=== PATIENT | female | born 2005 | race Caucasian/White ===

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

== ENCOUNTER 2024-09-10 20:38 | Emergency (ER) | payer OTHER, SELFPAY ==
--- OUTSIDE RECORDS SUMMARY | 2024-09-10 20:41 | XMS_ITS | Referral Summary ---
Author Organization [facility] Address [address] [place] [address] Care Team Providers Care Newspaper Editor Managing Name Role Phone Elsewhere, Pcp Primary Care Provider Unavailabl e Source Comments Patient records contain information from all sites at [facility]. For routine questions regarding patient records, call [phone] during business hours, M-F 8:00 AM - 5:00 PM Central Time. 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 topically daily. APPLY PEA-SIZE AMOUNT TO ENTIRE FACE/CHEST/BACK EVERY NIGHT. OK TO APPLY EVERY 3 DAYS, INCREASING FREQUENCY TOLERATED. OK TO APPLY AFTER Active albuterol 90 mcg/actuation inhaler Inhale 2-4 puffs every 6 (six) hours as needed for shortness of breath or wheezing. INHALE 2-4 PUFF(S) BY MOUTH WITH SPACER EVERY FOUR TO SIX HOURS NEEDED FOR COUGH/WHEEZING. Active clindamycin-benzo yl peroxide 1.2-2.5 % gel with pump Apply 1 Application topically daily as needed (acne). Active EPINEPHrine 0.3 mg/0.3 mL injection syringe Inject 0.3 mL intramuscularly as needed. Active cholecalciferol (VITAMIN D3) 125 mcg (5,000 Unit) capsule Take 125 mcg by mouth daily. 01/01/20 Active cyanocobalamin, vitamin B-12, (Vitamin B-12) 5,000 mcg tablet, sublingual Take 1 tablet by mouth daily. 01/08/20 Active omega 0-jup-mns-fish oil 300 mg (120 mg- 180mg)-1,000 mg capsule Take 1 capsule by mouth daily. 01/01/20 Active inulin (FIBER GUMMIES ORAL) Take 15 mg by mouth daily. 02/11/20 Active acetaminophen (TYLENOL) 500 mg tablet Take 2 tablets (1,000 mg total) by mouth every 6 (six) hours as needed for pain. 04/09/20 Active ibuprofen (ADVIL,MOTRIN) 200 mg tablet Take 2 tablets (400 mg total) by mouth every 6 (six) hours as needed for pain. 04/09/20 Active polyethylene glycol (MIRALAX) 17 gram powder packet Take 1 packet (17 g total) by mouth daily. Dissolve each 17 g dose in 240 mLs (8 ounces) of beverage. Titrate to keep stools soft, can increase to twice daily if needed 04/09/20 Active Additional Information Patient taking differently: 34 goral Daily, Dissolve each 17 g dose in 240 mLs (8 ounces) of beverage. Titrate to keep stools soft, can increase to twice daily if needed, Reported on 08/10/2023 ondansetron ODT (ZOFRAN-ODT) [address] ONE (1) TABLET BY MOUTH EVERY 6-8 HOURS NEEDED. 04/30/20 Active sulfacetamide sodium-sulfur 8-4 % suspension 1 Application daily. 07/07/20 Active Wellbutrin SR 200 mg 12 hr tablet Take 200 mg by mouth daily. Active levonorgestreL (MIRENA) 21 mcg/24 hours (8 yrs) 52 mg IUD 1 each by intrauterine route continuously. 04/02/20 Active sertraline (ZOLOFT) 100 mg tablet Take 100 mg by mouth daily. Active ALPRAZolam (NIRAVAM) 0.25 mg disintegrating tablet 02/25/20 24 Active inhalational spacing device (OptiChamber [facility]) spacer See Admin Instructions. Active omeprazole (PriLOSEC) [address] capsule Take 1 capsule (40 mg total) by mouth 2 (two) times a day before breakfast and dinner. 180 capsule 3 03/15/20 24 Active Active Problems Problem Noted Date Diagnosed Date Follow Up Examination Status Post Surgery 2022 Other Specified Health Status 03/06/2023 Overview (03/06/2023): Food Allergies Depressive Disorder 03/06/2023 Anxiety Generalized [...] mostly on the weekends and mostly vodka [facility] Utilities Answer Date Recorded In the past 12 months has [facility] electric, gas, oil, or water company threatened to shut off services in your home? No 03/13/2024 Humiliation, Afraid, Rape, and Kick questionnair e [...] do you attend [facility] or shinto services? Never 03/03/2023 Do you [...] to strenuous exercise (like a brisk walk)? Patient declined On average, how many minutes do you engage in exercise at this level? Patient declined 03/13/2024 Hunger Vital Sign Answer Date Recorded Within the past 12 months, y ou worried that your food would run out before you got the money to buy more. Patient declined Within the past 12 months, t he food you bought just didn't last and you didn't have money to get more. Patient declined 10/2024 PRAPARE - Transportation Answer Date Re corded In the past 12 months, has l ack of transportation kept you from medical appointments or from getting medications? Yes 03/02 In the past 12 months, has l ack of transportation kept you from meetings, work, or from getting things needed for daily living? Yes 03/13/2024 Nutrition Answer Date Recorded On average, how many serving s of fruits and vegetables do you eat per day (serving size is equal to 1 cup or approximately the size of a tennis ball)? 3-5 03/13/2024 Dental Answer Date Recorded Dental: Regular Dentist Yes 03/03/20 Employment Answer Date Recorded Employment status N/A 03/13/2024 Housing Stability Answer Date Recorded What is your living situation today? [facility] place to live 03/13/2024 Education Answer Date Recorded What is the highest level of school you have completed or the highest degree you have received? Some college, no degree 03/03/2023 Comments Unknown Sex and Gender Information Value Date Recorded Sex Assigned at Female 03/03/2023 12:07 AM CDT Legal Sex Female 12:06 PM CDT Gender Identity Female 03/03/2023 12:07 AM CDT Sexual Orientation Don't know 03/03/2023 12 :07 AM CDT Last Filed Vital Signs Vital Sign Reading Time Taken Comments Blood Pressure 105/71 03/15/2024 8:38 AM CDT Pulse 68 03/15/2024 8:38 AM CDT Temperature 36.4 ??C (97.5 ??F) 05/04/2023 1:46 PM CD T Respiratory Rate 16 05/04/2023 2:00 PM CDT Oxygen Saturation 100% 05/04/2023 2:00 PM CDT Inhaled Oxygen Concentration - - Weight 69.2 kg (152 lb 8.9 oz) 03/15/2024 8:38 A M CDT Height 161 cm (5' 3.39) 03/15/2024 8:38 AM CDT Body Mass Index 26.7 03/15/2024 8:38 AM CDT Plan of Treatment Not on file Medical Devices Implanted Type Area Yard Supervisor Cotton Gin Device Identifier Shelf Expiration Date Model / Serial / Lot Perminant Retainers Hardware e.g. pins/screws/fernanda s Mouth Intrauterine Device-04/02/2022 Implanted:04/02 (Quantity not on file) Intrauterine Device Uterus Description:Mirena IUD Gravel Switch Biodesi Rectopexy Mesh 7x20 - [id number] Implanted:Qty: 1 on 04/08/2023 by El Mccormick M.B., Ch.B., M.P.H. at [facility] Mesh or Patch Pelvis [facility] 07/01/2024 [id number] / / [id number] Procedures Procedure Name Priority Date/Time Associated Diagnosis Comments CBC WITH DIFFERENTIAL, B Routine 03/13/2023 3:41 PM CDT Prolapse Rectal COLONOSCOPY Routine 03/13/2023 8:12 AM CDT Prolapse Rectal from Last 3 Months or Most Recently Relevant to Health Maintenance Results * (ABNORMAL) CBC with Differential, Blood (03/13/2023 [...] PM CDT Jordon Geronimo M.D., M.S. LAB BLOOD ADD-ON Final Result [facility] [address] [place] [address], [facility] D[facility] [address] [place] [address] from Last 3 Months or Most Recently Relevant to Health Maintenance Insurance [facility] Advance Directives For more information, please contact: [phone] * Full Code (Latest Code Status on File) Date Activated Date Inactivated Comments 04/08/2023 8:25 PM 04/09/2023 12:20 PM Question Answer Comments Full Code: Discussed * Full Code Date Activated Date Inactivated Comments 04/08/2023 9:44 AM 04/08/2023 8:25 PM Question Answer Comments Full Code: Discussed Care Teams Newspaper Editor Managing Relationship Specialty Start Date End Date Elsewhere, Pcp PCP - General Internal Medicine 08/10/23
--- OUTSIDE RECORDS SUMMARY | 2024-09-10 20:41 | XMS_ITS | Data Portability ---
Author Organization [facility], [facility] Address [address] [place] [address] Care Team Providers Care Mixing Machine Feeder Name Role Phone OSIEL ISSA Primary Care Provider PENGELIAN Psychiatrist [phone] Assessment Encounter Date Assessment Date Assessment LastModified by Organization Details LastModified Time 09/29/2023 09/29/2023 Total time: 35 min. This includes time spent with patient, as well as time spent before and after the visit reviewing the chart, documenting the encounter and reviewing labs and x-rays. [email or web address] Not available 09/29/2023 14:02:25 Plan of Treatment Reminders Order Date Submit Date Provider Last Modified By Organization Details Last Modified Time Details Appointments None recorded. Lab lipid panel, serum 2022 023 [facility], [address], [address], [place], [address], 3 07:22:30 CBC w/ auto diff 2022 023 [facility], [address], [address], [place], [address], 3 07:22:31 ESR (erythrocyt e sedimentati on rate), blood 2022 023 EZEL [facility], [address], [address], [place], [address], 3 07:22:33 TSH, serum or plasma 2022 023 E[facility], [address], [address], [place], [address], 3 07:22:34 CMP, serum or plasma 2022 023 E[facility], [address], [address], [place], [address], 3 07:22:32 Referral None recorded. Procedures None recorded. Surgeries None recorded. Imaging None recorded. Medication Orders EpiPen 2-Thiago 0.3 mg/0.3 mL injection, auto-inject or 2022 [facility] [place] [id number] ([id number]), [address], [place], [place], [phone], 13:45:15 Patient TargetsNo targets recorded. Patient InstructionsNo instructions recorded. Reason for Referral None Reported. Results Created Date Observation Date Name Description Value Unit Range Abnormal Flag Note LastModifiedBy Organization Detail LastModifiedTime 09/29/2009/30/2023 LIPID PANEL cholesterol 149 mg/dL <200 Not Available [facility] - Main Lab (Blood Not Drawn At This Location) Visit [place] [place], [address], 09/30/2023 07:22:30 09/29/2009/30/2023 LIPID PANEL triglyceride s 67 mg/dL <150 Not Available [facility] - Main Lab (Blood Not Drawn At This Location) Visit [place] [place], [address], 09/30/2023 07:22:30 09/29/20 23 09/30/2023 LIPID PANEL HDL cholesterol 59 mg/dL >39 Not Available [facility] - Main Lab (Blood Not Drawn At This Location) Visit [place] [place], [address], 09/30/2023 07:22:30 09/29/20 23 09/30/2023 LIPID PANEL calc LDL chol 76 mg/dL <100 NOTE: CALCU LATED LDL IS BASED ON ROBERTO N-HOP KINS METHO D WHICH INCLU MANA ADJUS TABLE TRIGL YCERI DE:VL DL DEVIN STERO L RATIO . THIS FACTO R VARIE S BY MEASU RED TRIGL YCERI DE AND NON-H DL DEVIN STERO L MANGO NTRAT IONS WITH INCRE ASED CALCU LATED LDL SEEN IN HIGHE R TRIGL YCERI DE OR LOWER NON-H DL SPECI MENS. FOR MORE INFOR RIMA Goins, SEE INDIGO LERMA NT AT [email or web address]: [email or web address] Not Available [facility] (Blood Not Drawn At This Location) Visit [place], [address], 09/30/2023 07:22:30 09/29/20 23 09/30/2023 LIPID PANEL risk ratio LDL/HDL 1.29 ratio <3.22 Testi ng Perfo rmed At: [facility] [address] [place] [address] Labor atory Direc tor: Eulalio wright M.D. JIALARA Orozcoshay r [id number] [place] [id number] Not Available [facility] Lab (Blood Not Drawn At This Location) Visit [place] [place], [address], 09/30/2023 07:22:30 09/29/20 23 09/30/2023 CBC W/AUT O DIFF WITH PLATE LETS WBC 5.5 K/uL 3.5-11 .0 Not Available [facility] (Blood Not Drawn At This Location) Visit [place] [place], [address], 09/30/2023 07:22:31 09/29/20 23 09/30/2023 CBC W/AUT O DIFF WITH PLATE LETS RBC 4.52 M/uL 3.80-5 .40 Not Available [facility] (Blood Not Drawn At This Location) Visit [place] [place], [address], 09/30/2023 07:22:31 09/29/20 23 09/30/2023 CBC W/AUT O DIFF WITH PLATE LETS hemoglobin 14.1 g/dL 11.5-1 5.5 Not Available [facility] (Blood Not Drawn At This Location) Visit [place] [place], [address], 09/30/2023 07:22:31 09/29/20 23 09/30/2023 CBC W/AUT O DIFF WITH PLATE LETS hematocrit 41.1 % 34.0-4 5.0 Not Available [facility] (Blood Not Drawn At This Location) Visit [place] [place], [address], 09/30/2023 07:22:31 09/29/20 23 09/30/2023 CBC W/AUT O DIFF WITH PLATE LETS MCV 90.9 fL 80.0-9 9.0 Not Available [facility] (Blood Not Drawn At This Location) Visit [place] [place], [address], 09/30/2023 07:22:31 09/29/20 23 09/30/2023 CBC W/AUT O DIFF WITH PLATE LETS MCH 31.2 pg 25.0-3 3.0 Not Available [facility] (Blood Not Drawn At This Location) Visit [place] [place], [address], 09/30/2023 07:22:31 09/29/20 23 09/30/2023 CBC W/AUT O DIFF WITH PLATE LETS MCHC 34.3 g/dL 31.0-3 6.0 Not Available [facility] (Blood Not Drawn At This Location) Visit [place] [place], [address], 09/30/2023 07:22:31 09/29/20 23 09/30/2023 CBC W/AUT O DIFF WITH PLATE LETS RDW 11.6 % 11.5-1 5.0 Not Available [facility] Main Lab (Blood Not Drawn At This Location) Visit [facility] For Location [facility] [place], [address], 09/30/2023 07:22:31 09/29/20 23 09/30/2023 CBC W/AUT O DIFF WITH PLATE LETS neutrophils 57.0 % Not Available [facility] Main Lab (Blood Not Drawn At This Location) Visit [place] [place], [address], 09/30/2023 07:22:31 09/29/20 23 09/30/2023 CBC W/AUT O DIFF WITH PLATE LETS lymphocytes 29.3 % Not Available [facility] Main Lab (Blood Not Drawn At This Location) Visit [place] [place], [address], 09/30/2023 07:22:31 09/29/20 23 09/30/2023 CBC W/AUT O DIFF WITH PLATE LETS monocytes 5.5 % Not Available [facility] (Blood Not Drawn At This Location) Visit [place] [place], [address], 09/30/2023 07:22:31 09/29/20 23 09/30/2023 CBC W/AUT O DIFF WITH PLATE LETS eosinophils 7.3 % Not Available [facility] Main Lab (Blood Not Drawn At This Location) Visit [place] [place], [address], 09/30/2023 07:22:31 09/29/20 23 09/30/2023 CBC W/AUT O DIFF WITH PLATE LETS basophils 0.7 % Not Available [facility] Lab (Blood Not Drawn At This Location) Visit [facility] [place], [address], 09/30/2023 07:22:31 09/29/20 23 09/30/2023 CBC W/AUT O DIFF WITH PLATE LETS immature granulocytes 0.2 % Not Available [facility] - Main Lab (Blood Not Drawn At This Location) Visit [place] [place], [address], 09/30/2023 07:22:31 09/29/20 23 09/30/2023 CBC W/AUT O DIFF WITH PLATE LETS nucleated RBCs 0.0 /100_ WBC's 0.0 Not Available [facility] Main Lab (Blood Not Drawn At This Location) Visit [facility] [place], [address], 09/30/2023 07:22:31 09/29/20 23 09/30/2023 CBC W/AUT O DIFF WITH PLATE LETS platelet count 336 K/uL 130-40 0 Not Available [facility] (Blood Not Drawn At This Location) Visit [place] [place], [address], 09/30/2023 07:22:31 09/29/20 23 09/30/2023 CBC W/AUT O DIFF WITH PLATE LETS absolute neutrophils 3.11 K/uL 1.50-7 .50 Not Available [facility] (Blood Not Drawn At This Location) Visit [facility] [place], [address], 09/30/2023 07:22:31 09/29/20 23 09/30/2023 CBC W/AUT O DIFF WITH PLATE LETS absolute lymphocytes 1.60 K/uL 1.00-4 .00 Not Available [facility] (Blood Not Drawn At This Location) Visit [facility] [place], [address], 09/30/2023 07:22:31 09/29/20 23 09/30/2023 CBC W/AUT O DIFF WITH PLATE LETS absolute monocytes 0.30 K/uL 0.20-1 .00 Not Available [facility] (Blood Not Drawn At This Location) Visit [facility] [place], [address], 09/30/2023 07:22:31 09/29/20 23 09/30/2023 CBC W/AUT O DIFF WITH PLATE LETS absolute eosinophils 0.40 K/uL 0.00-0 .50 Not Available [facility] (Blood Not Drawn At This Location) Visit [facility] [place], [address], 09/30/2023 07:22:31 09/29/20 23 09/30/2023 CBC W/AUT O DIFF WITH PLATE LETS absolute basophils 0.04 K/uL 0.00-0 .20 Not Available [facility] (Blood Not Drawn At This Location) Visit [facility] [place], [address], 09/30/2023 07:22:31 09/29/20 23 09/30/2023 CBC W/AUT O DIFF WITH PLATE LETS abs immature granulocytes 0.01 K/uL 0.00-0 .10 Not Available [facility] (Blood Not Drawn At This Location) Visit [facility] [place], [address], 09/30/2023 07:22:31 09/29/20 23 09/30/2023 CBC W/AUT O DIFF WITH PLATE LETS abs nucleated RBCs 0.00 K/uL 0.00-0 .11 Testi ng Perfo rmed At: [facility] [address] [place] [address] Labor atory Dire tor: Eulalio wright M.D. JIAIA Pame r [id number] [place] [id number] Not Available [facility] Main Lab (Blood Not Drawn At This Location) Visit [facility] [place], [address], 09/30/2023 07:22:31 09/29/20 23 09/30/2023 COMPR EHENS BRIANA METAB OLIC PANEL + E-GFR glucose 84 mg/dL 70-99 Not Available [facility] (Blood Not Drawn At This Location) Visit [place] [place], [address], 09/30/2023 07:22:32 09/29/20 23 09/30/2023 COMPR EHENS BRIANA METAB OLIC PANEL + E-GFR BUN 7 mg/dL 6-20 Not Available [facility] (Blood Not Drawn At This Location) Visit [place] [place], [address], 09/30/2023 07:22:32 09/29/20 23 09/30/2023 COMPR EHENS BRIANA METAB OLIC PANEL + E-GFR creatinine 0.63 mg/dL 0.50-1 .10 Not Available [facility] (Blood Not Drawn At This Location) Visit [facility] [place], [address], 09/30/2023 07:22:32 09/29/20 23 09/30/2023 COMPR EHENS BRIANA METAB OLIC PANEL + E-GFR eGFR (2020 CKD-epi) 131 mL/mi n/1.7 3 >60 Not Available [facility] (Blood Not Drawn At This Location) Visit [place] [place], [address], 09/30/2023 07:22:32 09/29/20 23 09/30/2023 COMPR EHENS BRIANA METAB OLIC PANEL + E-GFR calc BUN/creat 11 ratio 6-28 Not Available [facility] Main Lab (Blood Not Drawn At This Location) Visit [facility] [place], [address], 09/30/2023 07:22:32 09/29/20 23 09/30/2023 COMPR EHENS BRIANA METAB OLIC PANEL + E-GFR sodium 140 mEq/L 133-14 6 Not Available [facility] (Blood Not Drawn At This Location) Visit [facility] [place], [address], 09/30/2023 07:22:32 09/29/20 23 09/30/2023 COMPR EHENS BRIANA METAB OLIC PANEL + E-GFR potassium 5.1 mEq/L 3.5-5. 4 Not Available [facility] (Blood Not Drawn At This Location) Visit [place] [place], [address], 09/30/2023 07:22:32 09/29/20 23 09/30/2023 COMPR EHENS BRIANA METAB OLIC PANEL + E-GFR chloride 103 mEq/L 95-107 Not Available [facility] (Blood Not Drawn At This Location) Visit [facility] [place], [address], 09/30/2023 07:22:32 09/29/20 23 09/30/2023 COMPR EHENS BRIANA METAB OLIC PANEL + E-GFR carbon dioxide 26 mEq/L 19-31 Not Available [facility] Main Lab (Blood Not Drawn At This Location) Visit [facility] [place], [address], 09/30/2023 07:22:32 09/29/20 23 09/30/2023 COMPR EHENS BRIANA METAB OLIC PANEL + E-GFR calcium 9.9 mg/dL 8.5-10 .5 Not Available [facility] (Blood Not Drawn At This Location) Visit [place] [place], [address], 09/30/2023 07:22:32 09/29/20 23 09/30/2023 COMPR EHENS BRIANA METAB OLIC PANEL + E-GFR protein, total 6.9 g/dL 6.1-8. 3 Not Available [facility] (Blood Not Drawn At This Location) Visit [place] [place], [address], 09/30/2023 07:22:32 09/29/20 23 09/30/2023 COMPR EHENS BRIANA METAB OLIC PANEL + E-GFR albumin 4.7 g/dL 3.5-5. 2 Not Available [facility] (Blood Not Drawn At This Location) Visit [place] [place], [address], 09/30/2023 07:22:32 09/29/20 23 09/30/2023 COMPR EHENS BRIANA METAB OLIC PANEL + E-GFR calc globulin 2.2 g/dL 2.1-3. 7 Not Available [facility] (Blood Not Drawn At This Location) Visit [facility] [place], [address], 09/30/2023 07:22:32 09/29/20 23 09/30/2023 COMPR EHENS BRIANA METAB OLIC PANEL + E-GFR calc A/G ratio 2.1 ratio 1.0-2. 6 Not Available [facility] (Blood Not Drawn At This Location) Visit [facility] [place], [address], 09/30/2023 07:22:32 09/29/20 23 09/30/2023 COMPR EHENS BRIANA METAB OLIC PANEL + E-GFR bilirubin, total 0.4 mg/dL <=1.2 Not Available [facility] - Main Lab (Blood Not Drawn At This Location) Visit [place] [place], [address], 09/30/2023 07:22:32 09/29/20 23 09/30/2023 COMPR EHENS BRIANA METAB OLIC PANEL + E-GFR alkaline phosphatase 88 U/L 41-120 Not Available [facility] - Main Lab (Blood Not Drawn At This Location) Visit [facility] [place], [address], 09/30/2023 07:22:32 09/29/20 23 09/30/2023 COMPR EHENS BRIANA METAB OLIC PANEL + E-GFR AST 16 U/L 9-40 Not Available [facility] Lab (Blood Not Drawn At This Location) Visit [facility] [place], [address], 09/30/2023 07:22:32 09/29/20 23 09/30/2023 COMPR EHENS BRIANA METAB OLIC PANEL + E-GFR ALT 13 U/L 5-40 Testi ng Perfo rmed At: [facility] [address] [place] [address] Labor atory Direc tor: Faith Currie r [id number] [place] [id number] Not Available [facility] (Blood Not Drawn At This Location) Visit [facility] [place], [address], 09/30/2023 07:22:32 09/29/20 23 09/30/2023 SEDIM ENTAT ION RATE sedimentatio n rate 10 mm/ho ur 0-20 Testi ng Perfo rmed At: [facility] [address] [place] [address] Labor atory Direc tor: Faith Currie Numbe r [id number] [place] [id number] Not Available [facility] Main Lab (Blood Not Drawn At This Location) Visit [place] [place], [address], 09/30/2023 07:22:33 09/29/20 23 09/30/2023 TSH, THIRD GENER ATION TSH, third generation 0.915 uIU/m L 0.400- 4.100 Testi ng Perfo rmed At: [facility] [address] [place] [address] Labor atory Direc tor: Faith Currie r [id number] [place] [id number] Not Available [facility] Main [facility] (Blood Not Drawn At This Location) Visit [place] [place], [address], 09/30/2023 07:22:34 Result Notes None recorded. Problems Name Problem SNOMED Code Status Onset Date Resolution Date Notes Provider Name and Address Organization Details Recorded Time Eosinophilic esophagitis 278392526 Active 2022 Osiel Issa MD [address] [facility], [place], [address], [place] - [facility] 3 13:59:45 Overactive urinary bladder 694078016 Active 2022 Osiel Issa MD [address] [facility], [place], [address], [place] - [facility] 3 13:59:46 Hemorrhoids 01467623 Active 2022 Osiel Issa MD [address] [facility], [place], [address], [place] - [facility] 3 14:00:47 Rectal prolapse 49917159 Active 2022 Osiel Issa MD [address] 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, [place], [address], [place] - [facility] 3 14:02:02 Allergy to food 806998194 Active 2022 Osiel Issa MD [address] [facility], [place], [address], [place] - [facility] 3 14:02:12 Dizziness 969807649 Active 2022 Osiel Issa MD [address] [facility], [place], [address], [facility] 3 14:02:15 Problem Notes None recorded. Procedures Surgical History Date Name Laterality Status Provider Name and Address Organization Details Recorded Time 023 Gastrointestinal Surgery completed Osiel Issa MD [address] [facility] [address], [place], [address], [facility] 09/29/2023 13:41:46 023 Colonoscopy completed Miesha Dhuperoir [facility] 09/29/2023 12:52:44 Imaging Results None recorded. Procedure Notes None recorded. Medical Equipment None Reported. Allergies Allergen ID Allergen Name Allergen Category Reaction Reaction Severity Criticality Documentation Date Start Date Code Code System Note Provider Name and Address Organization Details Recorded Time 812124 egg extract food,medi cation Not available Not available Not available 09/29/2023 89932 15 RxNorm Miesha Dhuperoir null, [facility] 3 12:52:16 599115 avocado allergeni c extract food Not available Not available Not available 09/29/2023 03926 2 RxNorm Miesha Dhuperoir null, [facility] 3 12:52:16 126036 tree nut food Not available Not available Not available 09/29/2023 Miesha Dhuperoir null, [facility] 3 12:52:16 379527 sesame seed extract food Not available Not available Not available 09/29/2023 25059 46 RxNorm Miesha Dhuperoir null, [facility] 3 12:52:16 Medications Name Sig Start Date Stop Date Status Note LastModified by Organization Details LastModified Time spironolacto ne 100 mg tablet Take 1 tablet every day by oral route. active Not Available Not Available No t Available sertraline 100 mg tablet Take 1 tablet every day by oral route. active Not Available Not Available No t Available oseltamivir 75 mg capsule Take 1 capsule every day by oral route for 10 days, for influenza prophylaxsi s. 2023 active Not Available Not Available Not Avai lable albuterol sulfate HFA 90 mcg/actuatio n aerosol inhaler Inhale 2 puffs every 4 hours by inhalation route. 2023 active Not Available Not Available Not Avai lable Wellbutrin SR 200 mg tablet, 12 hr sustained-re lease Take 1 tablet every day by oral route. active Not Available Not Available No t Available omeprazole active OTC Not Available Not Av ailable Not Available EpiPen 2-Thiago 0.3 mg/0.3 mL injection, auto-injecto r INject 0.3 mg SC/IM x1; Info: may repeat dose x1 after 5-15min 2023 active Not Available Not Available Not Avai lable Vitals Date Recorded Body weight Body mass index (BMI) Body mass index (BMI) Percentile per age and sex Body height Heart rate Oxygen saturation Oxygen saturation in Arterial blood by Pulse oximetry Systolic blood pressure Diastolic blood pressure Provider Name and Address Organization Details Last Updated DateTime 3 42867.4 9 g 25.1 kg/m2 80 % 162.56 cm 86 /min 99 % 99 % 114 mm[Hg] 82 mm[Hg] Miesha Rubalcava [facility] 3 13:07:16 Date Recorded Body height Body mass index (BMI) Body mass index (BMI) Percentile per age and sex Body weight Heart rate Oxygen saturation Oxygen saturation in Arterial blood by Pulse oximetry Systolic blood pressure Diastolic blood pressure Provider Name and Address Organization Details Last Updated DateTime 4 160.02 cm 26.5 kg/m2 86 % 25771.4 2 g 98 /min 98 % 98 % 110 mm[Hg] 80 mm[Hg] Miesha Rubalcava [facility] 4 10:50:49 Social History Question Answer Notes LastModified by Organizat ion Details LastModified Time Tobacco Smoking Status Never Smoker Miesha miranda [facility] 09/29/2023 12:52:39 Do You Have [...] 09/29/2023 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 01/18/2024 Information not available 01/18/2024 Are You Passively Exposed To Smoke? No Information no t available 09/29/2023 Sex: Unknown Functional Status Question Answer Note LastModified by Organizat ion Details LastModified Time What is your exercise level? Occasional Information not available 09/29/2023 Mental Status None recorded. Family History Relationship Description Onset Age of this Age Resolved Age Notes LastModified by Organization Details LastModified Time Paternal Grandmother Sleep disorder [email or web address] Not available 09/29 12:52:21 Mother Anxiety disorder [email or web address] Not available 09/29 12:52:21 Mother Headache [email or web address] Not availab le 09/29/2023 12:52:21 Maternal Grandmother Disorder of thyroid gland [email or web address] Not available 09/29 12:52:21 Maternal Grandmother Depressive disorder jdhuperoir Not available 09/29 12:52:21 Maternal Grandmother Malignant tumor of cervix jdhuperoir Not available 09/29 12:52:21 Maternal Grandmother Attention deficit hyperactivit y disorder jdhuperoir Not available 09/03 12:52:21 Maternal Grandfather Sleep disorder jdhuperoir Not available 09/29 12:52:21 Father Asthma jdhuperoir Not available 09/29/2023 12:52:21 Father Liver problem [email or web address] Not available 09/29 12:52:21 Father Hypertensive disorder jdhuperoir Not available 09/29 12:52:21 Father Sleep disorder jdhuperoir Not available 09/29 12:52:21 Medical History Condition Response Depression Y Defects or Inherited Disease Y Colon Polyps Y Bedwetting Y Anxiety/Stress Y Asthma Y Allergies (Other than meds) Y Reflux/GERD Y Gynecological History Statement/Question Response Flow Light Date of LMP 01/10/2024 Frequency of Cycle (Q days) 28 Duration of Flow (days) 4 Age at Menarche 11 Current Control Method IUD Hormone Replacement Therapy N Obstetrics History GPAL:G 0 P 0 0 0 0 Past Encounters Encounter ID Performer Location Encounter Start Date Encounter Closed Date Diagnosis/Indication Diagnosis SNOMED-CT Code Diagnosis ICD10 Code [id number] Osiel Issa MD [facility] [address] [place] [address] 09/29/2023 12:30:41 10/02/2023 12:27:08 Dizziness 948205907 R42 Allergy to food 56661795 1 T78.1XXA Inguinal lymphadenopathy 752723961 R59.0 Fatigue 94076912 R53.83 Eosinophil ic esophagitis 823227513 K20.0 Overactive urinary bladder 801783973 N32.81 Hemorrhoids 97023791 K64 .9 Rectal prolapse 94331074 K62.3 Hyperlipid emia screening 714297535 Z13.220 Pablo-Silviano los syndrome 422917478 Q79.60 [id number] Osiel Issa MD [facility] [address] [place] [address] 01/18/2024 10:22:21 01/21/2024 11:03:55 Adult health examination 754203238 Z00.00 Pain in ri ght hip joint 7424724239 42039 M25.551 Health Concerns Section Related Observation LastModified by Organization Detai ls LastModified Time None Recorded Concern Status LastModified by Organization Details LastModified Time None Recorded Advance Directives Directive N: Payers Encounter Date Sequence Insurance Name Policy Number Policy Hager Covered Member ID Hager Member ID Guarantor Name 09/29/2023 1 [facility] [id number] Jerson Tsang [id number] Crystal Tsang 01/18/2024 1 [facility] [id number] Jerson Tsang [id number] Crystal Tsang Notes Date Note Type Note Provider Name and Address Organization Details Recorded Time 09/29/2023 text/html DizzinessReporte d bypatient.Quality:ligh theadedness Severity:no effect on daily activities Duration:constant; lasts <5 minutes Context:non-smoker Modifying Factors:going from sit to stand; change in position; rapid movements Aggravating factors:positional changeHip(s)Reported bypatient.Location:rig Context:fall Associated Symptoms:no weakness; no numbness; no tingling; no swelling; [...] surgery 04/2023 Osiel Issa MD [address] [address], [place], [address], [facility] - [facility] 09/29/2023 14:02:42 01/18/2024 text/html Annual WellnessReported bypatient.Diet and Nutrition:healthy diet Depression Risk:history of mood disorders; anxietyHip(s)Reported bypatient.Location:[facility]; right hip pain radiates around the area Quality:occasional Alleviating Factors:NSAIDs (advil/tylenol) Associated Symptoms:no weakness; no numbness; no tingling; no swelling; no redness; no warmth; no ecchymosis; no catching/locking; no popping/clicking; no buckling; no grinding; no instability; no radiation down leg; no drainage; no fever; no chills; no weight loss; no change in bowel/bladder habits -pt c/o of joint pain in right hip X1 year intermittently. -pt c/o pea sized bubble that moves around on right knee that hurt at times. Osiel Issa MD [address] [facility], [place], [address], [facility] 01/18/2024 11:20:56 OBGyn Episode No OBEpisode recorded.
--- OUTSIDE RECORDS SUMMARY | 2024-09-10 20:41 | XMS_ITS | Clinical Summary ---
Author Organization [facility] Address [address] [place] [id number] Care Team Providers Care Creative Services Coordinator Name Role Phone Elsewhere, Pcp Primary Care Provider Unavailabl e Source Comments Patient records contain information from all sites at [facility]. For routine questions regarding patient records, call [phone] during business hours, M-F 8:00 AM - 5:00 PM Central Time. Record requests for emergency care only can be directed to [phone] at any time.[facility] Allergies Active Allergy Reactions Criticality Noted Date [...] tablet by mouth daily. 01/08/20 Active omega 4-yrn-iiu-fish oil 300 mg (120 mg- 180mg)-1,000 mg [...] 24 Active inhalational spacing device (OptiChamber [facility]) spacer See Admin Instructions. Active omeprazole (PriLOSEC) [...] Disorder 03/04/2018 03/01/2023 Primary Dysmenorrhea 03/04/2018 03/01/2023 Family History Medical History Relation Name Comments ADD Brother Lawson Anxiety disorder Brother Lawson Asthma Father Ricky Colon polyps Father Ricky Hypertension Father Ricky Sleep apnea Father Ricky Anxiety disorder Maternal Grandfather Peter Colon polyps [...] Name Status Comments Brother Lawson Alive Father Ricky Alive Maternal Grandfather Peter Maternal Grandmother Eulalio Mother Purnima Alive Paternal Grandfather Art Paternal Grandmother Bethany Social History Tobacco Use Types Packs/Day Years Used Date Smoking Tobacco: Never Smokeless Tobacco: Never Tobacco Cessation:Counseling Given: Not Answered Alcohol Use Standard Drinks/Week Comments Yes 4 (1 standard drink = 0.6 oz pure alcohol) Varies, mostly on the weekends and mostly vodka [facility] Utilities Answer Date Recorded In the past 12 months has [facility] [employer], gas, oil, or water [employer] threatened to shut off services in your [...] How often do you attend chur or buddhist services? Never 03/03/2023 Do you [...] medical care, and heating? Patient declined [facility]03/2023 [facility]ational Stress Questionnaire Answer [...] your living situation today? I have a [facility] place to live 03/13/2024 Education Answer Date [...] 03/15/2024 8:38 AM CDT Plan of Treatment Health Maintenance Due Date Last Done Comments CT Colonography 2004 Chlamydia and Gonorrhea Screening 2004 Cologuard 2004 Depression Monitoring (PHQ-9) 2004 HIV Screening 2004 Hearing Screening during Wel l Child Visit 2004 Hepatitis C Screening 2004 TB Screening during Well Chi ld Visit 2004 1 week Well Child Check-Up 2004 1 month Well Child Check-Up 2004 2 month Well Child Check-Up 2004 4 month Well Child Check-Up 2004 6 month Well Child Check-Up 2004 9 month Well Child Check-Up 01/13/2005 [...] Well Child Check-Up 04/15/2010 Pneumococcal vaccine (0-64 y ears) (1 of 2 - PCV) 2010 04/25/2005 6 year Well Child Check-Up 04/15/2011 7 year Well Child Check-Up 04/15/2012 8 year Well Child Check-Up 04/15/2013 9 year Well Child Check-Up 04/15/2014 10 year Well Child Check-Up 04/15/2015 11 year Well Child Check-Up 04/15/2016 12 year Well Child Check-Up 04/15/2017 13 year Well Child Check-Up 04/15/2018 Vision Screening during Well Child Visit 2018 14 year Well Child Check-Up 04/15/2019 15 year Well Child Check-Up 04/15/2020 16 year Well Child Check-Up 04/15/2021 17 year Well Child Check-Up 04/15/2022 Asthma Action Plan 03/01/2023 Asthma Control Test Questionnaire 03/01/2023 Asthma Management/Exacerbati on Questionnaire (AMQ/AEQ) 03/01/2023 18 year Well Child Check-Up 04/15/2023 Hepatitis B Vaccines (1 of 3 - 19+ 3-dose series) 2023 Depression Monitoring (PHQ-9 for quality tracking) 11/02/2023 19 year Well Child Check-Up 04/15/2024 Well Child Check-Up (WC) 04/15/2024 COVID-19 Vaccine (1 - 2023-2 5 season) 2024 Influenza Vaccine (#1) 2024 , 09/30/2022, 09/05/2021, Additional history exists Colonoscopy 03/13/2028 03/13/2023, 03/13/2023 Colorectal Cancer Surveillance 03/13/2028 DTaP,Tdap,and Td Vaccines (8 - Td or Tdap) 10/07/2032 10/07/2022, 12/03/2015, 05/07/2009, Additional history exists IPV Vaccines Completed 05/07/2009, 06/02, 2004, Additional history exists HPV Vaccines Completed 09/24/2020, 04/19/2019 Meningococcal Vaccine Completed 10/22/2021, 016 Anemia/Iron Deficiency Britte nick During Well Child Visit (if High Risk Menstruating Female) Completed 03/13/2023 Medical Devices Implanted Type Area Tin Pot Operator Device Identifier Shelf Expiration Date Model / Serial / Lot Perminant Retainers Hardware e.g. pins/screws/fernanda s Mouth Intrauterine Device-04/02/2022 Implanted:04/02 (Quantity not on file) Intrauterine Device Uterus Description:Mirena IUD [place] [employer] Rectopexy Mesh 7x20 - [id number] Implanted:Qty: 1 on 04/08/2023 by El Mccormick M.B., Ch.B., M.P.H. at [facility] Mesh or Patch Pelvis [facility] 07/01/2024 [id number] / / [id number] Procedures Procedure Name Priority Date/Time Associated Diagnosis [...] 3:41 PM CDT 03/13/2023 4:09 PM CDT us Jordon Geronimo M.D., M.S. LAB BLOOD ADD-ON Final Result [facility] [address] [place] [address], [facility] DTL [facility] [address] [place] [address] from Last 3 Months or Most Recently Relevant to Health Maintenance Insurance [facility] Advance Directives For more information, please contact: [phone] * Full Code (Latest Code Status on File) Date Activated Date Inactivated Comments 04/08/2023 8:25 PM 04/09/2023 12:20 PM Question Answer Comments Full Code: Discussed * Full Code Date Activated Date Inactivated Comments 04/08/2023 9:44 AM 04/08/2023 8:25 PM Question Answer Comments Full Code: Discussed Care Teams Creative Services Coordinator Relationship Specialty Start Date End Date Elsewhere, Pcp PCP - General Internal Medicine 08/10/23
--- OUTSIDE RECORDS SUMMARY | 2024-09-10 20:41 | XMS_ITS ---
Author Organization [facility] Address [address] [place] [address] Care Team Providers Care Military Professional Name Role Phone Unavailable Unavailable Unavailable Surgery Details Not on file Complications Check Surgery Details section. Procedure Estimated Blood Loss Check Surgery Details section. Procedure Findings Check Surgery Details section. Procedure Specimens Taken Check Surgery Details section.
--- OUTSIDE RECORDS SUMMARY | 2024-09-10 20:41 | XMS_ITS | Data Portability ---
Author Organization [facility] Address [address] [place] [address] Assessment Encounter Date Assessment Date Assessment LastModified by Organization Details LastModified Time 01/20/2023 01/20/2023 We spent more than 40 minutes on face to face discussion, documentation of the visit, reviewing documents and previous records, and/or collaboration with the patient's medical team. Not available 01/25/2023 12:52:51 Plan of Treatment Reminders Order Date Submit Date Provider Last Modified By Organization Details Last Modified Time Details Appointments None recorded. Lab RPR (rapid plasma reagin), serum 2022 023 [facility] - Main Lab (Blood Not Drawn At This Location), Visit [facility] [place], [address], 3 09:16:24 CT + NG DNA, PCR, urine 2022 023 [facility] - Main Lab (Blood Not Drawn At This Location), Visit [facility] [place], [address], 3 09:16:24 HIV (1+2) antibodies, EIA, serum, reflex HIV-1 western blot (WB) 2022 023 [place] [facility] - Main Lab (Blood Not Drawn At This Location), Visit [facility] [place], [address], 3 01:50:20 hepatitis (A+B+C) panel, serum 2022 023 [place] [facility] Lab (Blood Not Drawn At This Location), Visit [facility] [place], [address], 3 01:50:20 hsv (1+2) igg Ab, serum 2022 023 [place] [facility] Main Lab (Blood Not Drawn At This Location), Visit [facility] [place], [address], 3 01:50:19 urinalysis, dipstick 2022 023 [place] [address] In-Office Order, Internal Use Only DO Not Attach Compendium DO Not Attach Compendium, Do Not Delete/merge, [id number] 3 19:59:40 culture, urine 2022 023 [place] [facility] Lab (Blood Not Drawn At This Location), Visit [facility] [place], [address], 3 13:34:44 Referral None recorded. Procedures None recorded. Surgeries None recorded. Imaging audiogram 2021 022 [email or web address] In-House Results, For Internal Use Only, Do Not Delete/merge, [id number] 2 12:41:54 Medication Orders ondansetron 4 mg disintegrat ing tablet 2022 023 [facility] [place] [id number] 068), [address] , [place], [place], [id number], 3 10:42:06 Bactrim DS 800 mg-160 mg tablet 2022 023 [facility] [place] [id number] ([id number]), [address] , [place], [place], [id number], 3 19:59:40 Patient TargetsNo targets recorded. Patient Instructions Encounter Date Encounter Id Patient Instructions Last Modified By Organization Details Last Modified Time 10/07/2022 [id number] Bivalent vaccine given prior to starting college. Up to date on flu vaccine. Moving to adult medicine reviewed. Continue follow up with adolescent medicine as long as they are mutually compatible. 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 Not available 10/11/2022 10:51:47 01/20/2023 [id number] We had a good discussion about when [...] and as needed. Not available 01/25/2023 12:52:48 04/30/2023 [id number] It's time to consider transition to an [...] so we can deion down the results. Not available 04/30/2023 10:40:58 06/09/2023 [id number] painful urinatio n (dysuria): care instructions [email or web address] Not available 06/09/2023 19:59:40 Reason for Referral None Reported. Results Created Date Observation Date Name Description Value Unit Range Abnormal Flag Note LastModifiedBy Organization Detail LastModifiedTime 04/30/20 23 05/01/2023 HERPE S SIMPL EX 1/2 AB, IGG PANEL herpes simplex 1 Ab, IgG 0.031 index see below INTER PRETA TION UNITS RANGE ----- ----- ---- ----- ----- NON-R EACTI VE INDEX <1.00 0 REACT BRIANA INDEX >=1.0 00 Not Available [facility] - Main Lab (Blood Not Drawn At This Location) Visit [facility] [place], [address], 05/02/2023 01:50:19 04/30/2005/01/2023 HERPE S SIMPL EX 1/2 AB, IGG PANEL herpes simplex 2 Ab, IgG 0.087 index see below INTER PRETA TION UNITS RANGE ----- ----- ---- ----- ----- NON-R EACTI VE INDEX <1.00 0 REACT BRIANA INDEX >=1.0 00 Testi ng Perfo rmed At: [facility] [address] [place] [address] [employer] [facility] tor: Faith Currie r [id number] [place] [id number] Not Available [facility] - Main Lab (Blood Not Drawn At This Location) Visit [facility] [place], [address], 05/02/2023 01:50:19 04/30/2005/01/2023 HIV 1/2 4TH GEN, RFLX CONF HIV 1/2 4TH gen, rflx conf NON-RE ACTIVE non-re active Testi ng Perfo rmed At: [facility] [employer] [address] [place] [address] Labor [facility] Dire tor: Faith Currie r [id number] [place] [id number] Not Available [facility] - Main Lab (Blood Not Drawn At This Location) Visit [facility] [place], [address], 05/02/2023 01:50:19 04/30/2005/02/2023 RPR RPR result NON-RE ACTIVE non-re active Not Available [facility] Main Lab (Blood Not Drawn At This Location) Visit [facility] [place], [address], 05/02/2023 01:50:20 04/30/2005/02/2023 RPR RPR titer NOT INDIC. titer not indic. Testi ng Perfo rmed At: [facility] [address] [place] [address] Labor [facility] tor: Faith CurrieLARA Thornton kd [id number] [place] [id number] Not Available [facility] Main Lab (Blood Not Drawn At This Location) Visit [facility] [place], [address], 05/02/2023 01:50:20 04/30/20 23 05/01/2023 HEPAT ITIS PANEL , DIAGN OSTIC hepatitis A total Ab REACTI VE non-re active abnormal Not Available [facility] (Blood Not Drawn At This Location) Visit [facility] [place], [address], 05/02/2023 01:50:20 04/30/20 23 05/01/2023 HEPAT ITIS PANEL , DIAGN OSTIC hepatitis B surf Ag NON-RE ACTIVE non-re active Not Available [facility] Lab (Blood Not Drawn At This Location) Visit [facility] [place], [address], 05/02/2023 01:50:20 04/30/20 23 05/01/2023 HEPAT ITIS PANEL , DIAGN OSTIC hep B core total Ab NON-RE ACTIVE non-re active Not Available [facility] Lab (Blood Not Drawn At This Location) Visit [facility] [place], [address], 05/02/2023 01:50:20 04/30/20 23 05/01/2023 HEPAT ITIS PANEL , DIAGN OSTIC hepatitis B surface Ab REACTI VE non-re active abnormal Not Available [facility] (Blood Not Drawn At This Location) Visit [facility] [place], [address], 05/02/2023 01:50:20 04/30/2005/01/2023 HEPAT ITIS PANEL , DIAGN OSTIC hepatitis C antibody NON-RE ACTIVE non-re active Not Available [facility] (Blood Not Drawn At This Location) Visit [facility] [place], [address], 05/02/2023 01:50:20 04/30/20 23 05/01/2023 HEPAT ITIS PANEL , DIAGN OSTIC interpretati on hepatitis A: (NOTE) Hepat itis A serol ogy consi stent with past expos ure or previ ous vacci natio n to hepat itis A virus . No evide nce of curre nt acute hepat itis A infec tion. Not Available [facility] (Blood Not Drawn At This Location) Visit [facility] [place], [address], 05/02/2023 01:50:20 04/30/2005/01/2023 HEPAT ITIS PANEL , DIAGN OSTIC interpretati on hepatitis B: (NOTE) Hepat itis B serol ogy consi stent with immun ity to hepat itis B from previ ous hepat itis B vacci natio n. Not Available [facility] Lab (Blood Not Drawn At This Location) Visit [facility] [place], [address], 05/02/2023 01:50:20 04/30/2005/01/2023 HEPAT ITIS PANEL , DIAGN OSTIC interpretati on hepatitis C: (NOTE) Hepat itis C serol ogy shows no evide nce of expos ure to hepat itis C virus at this time. It can take up to 12 month s after expos ure to the hepat itis C virus for antib odies to becom e detec table in the blood in certa in patie nts. Testi ng Perfo rmed At: [facility] [address] [place] [address] [facility]: Faith Currie [id number] [place] [id number] Not Available [facility] Main Lab (Blood Not Drawn At This Location) Visit [facility] [place], [address], 05/02/2023 01:50:20 04/30/2005/01/2023 CT/NG , NAAT, URINE chlamydia, naat, urine NEGATI VE negati ve Testi ng is perfo rmed with Elizabeth ELENI 6800/ 8800 syste ms using real- time polym erase chain react ion (PCR) metho d. A negat briana resul t does not exclu de low level infec tion, speci men sampl ing error , or colle ction error . Not Available [facility] Main Lab (Blood Not Drawn At This Location) Visit [facility] [place], [address], 05/02/2023 01:50:21 04/30/2005/01/2023 CT/NG , NAAT, URINE gonorrhea, naat, urine NEGATI VE negati ve Testi ng is perfo rmed with Elizabeth ELENI 6800/ 8800 syste ms using real- time polym erase chain react ion (PCR) metho d. A negat briana resul t does not exclu de low level infec tion, speci men sampl ing error , or colle ction error . Testi ng Perfo rmed At: [facility] log[facility] [employer] [address] [place] [address] [facility] tor: Faith Currie [id number] [place] [id number] -01 Not Available [facility] - Main Lab (Blood Not Drawn At This Location) Visit [facility] [place], [address], 05/02/2023 01:50:21 04/30/2005/01/2023 HEPAT ITIS A IGM hepatitis A IgM NON-RE ACTIVE non-re active Testi ng Perfo rmed At: [facility] Path[facility] log[facility] [employer] [address] [place] [address] [facility] tor: Eulalio wright M.D. GIGI Thornton r [id number] [place] [id number] -01 Not Available [facility] Main Lab (Blood Not Drawn At This Location) Visit [facility] For Location [facility]arest [facility], [place], [address], 05/02/2023 01:50:21 06/09/20 23 06/12/2023 CULTU RE, URINE culture, urine SPECIM EN NUMBER : [id number] abnormal CULTU RE, URINE SPECI SONNY THORNTON R: [id number] [facility] E: URINE REPOR T STATU S: FINAL ISOLA TE HILLARY R 1: ORGAN ISM: 06/11 50-10 0,000 CFU/M L GRAM NEGAT BRIANA BACIL LI IDENT IFICA TION: 06/12 ESCHE RUBI A COLI E. COLI ----- ----- ----- - AMOXI CILLI N/CA SENSI TIVE <=8/4 AMPIC ILLIN SENSI TIVE <=8 CEFAZ JULES SENSI TIVE <=2 CEFTR IAXON E SENSI TIVE <=1 CIPRO FLOXA UMAIR SENSI TIVE <=1 LEVOF LOXAC IN SENSI TIVE <= 2 NITRO FURAN TOIN SENSI TIVE <=32 PIP/T AZOBA C SENSI TIVE <=16 TETRA CYCLI NE RESIS TANT >8 TOBRA MYCIN SENSI TIVE <=4 TRIME TH/SPRINGER LFA SENSI TIVE <=2/3 8 NOTE: HILLARY RS DISPL AYED REPRE SENT MINIM UM INHIB ITORY MANGO NTRAT ION (RAMILA) WHICH IS EXPRE SSED IN MCG/M L. Testi ng Perfo rmed At: [facility] log[facility] [employer] [address] [place] [address] [facility] tor: Eulalio wright M.D. GIGI Thornton r [id number] [place] [id number] -01 Not Available [facility] - Main Lab (Blood Not Drawn At This Location) Visit [facility] For Location [place], [place], [address], 06/12/2023 13:34:44 06/09/20 23 06/09/2023 urina lysis , dipst ick Unknown Analyte Yellow , clear Not Available In-Office Order Internal Use Only DO Not Attach Compendium DO Not Attach Compendium, Do Not Delete/merge, [id number] 06/09/2023 19:41:33 06/09/20 23 06/09/2023 urina lysis , dipst ick Unknown Analyte Negati ve Not Available In-Office Order Internal Use Only DO Not Attach Compendium DO Not Attach Compendium, Do Not Delete/merge, [id number] 06/09/2023 19:41:33 06/09/2006/09/2023 urina lysis , dipst ick Unknown Analyte negati ve Not Available In-Office Order Internal Use Only DO Not Attach Compendium DO Not Attach Compendium, Do Not Delete/merge, [id number] 06/09/2023 19:41:33 06/09/20 23 06/09/2023 urina lysis , dipst ick Unknown Analyte negati ve Not Available In-Office Order Internal Use Only DO Not Attach Compendium DO Not Attach Compendium, Do Not Delete/merge, [id number] 06/09/2023 19:41:33 06/09/20 23 06/09/2023 urina lysis , dipst ick Unknown Analyte 1.005 Not Available In-Off ice Order Internal Use Only DO Not Attach Compendium DO Not Attach Compendium, Do Not Delete/merge, [id number] 06/09/2023 19:41:33 06/09/20 23 06/09/2023 urina lysis , dipst ick Unknown Analyte small Not Available In-Off ice Order Internal Use Only DO Not Attach Compendium DO Not Attach Compendium, Do Not Delete/merge, [id number] 06/09/2023 19:41:33 06/09/20 23 06/09/2023 urina lysis , dipst ick Unknown Analyte 8 Not Available In-Off ice Order Internal Use Only DO Not Attach Compendium DO Not Attach Compendium, Do Not Delete/merge, [id number] 06/09/2023 19:41:33 06/09/20 23 06/09/2023 urina lysis , dipst ick Unknown Analyte negati ve Not Available In-Office Order Internal Use Only DO Not Attach Compendium DO Not Attach Compendium, Do Not Delete/merge, [id number] 06/09/2023 19:41:33 06/09/20 23 06/09/2023 urina lysis , dipst ick Unknown Analyte 0.2 Not Available In-Off ice Order Internal Use Only DO Not Attach Compendium DO Not Attach Compendium, Do Not Delete/merge, [id number] 06/09/2023 19:41:33 06/09/20 23 06/09/2023 urina lysis , dipst ick Unknown Analyte negati ve Not Available In-Office Order Internal Use Only DO Not Attach Compendium DO Not Attach Compendium, Do Not Delete/merge, [id number] 06/09/2023 19:41:33 06/09/20 23 06/09/2023 urina lysis , dipst ick Unknown Analyte modera te Not Available In-Office Order Internal Use Only DO Not Attach Compendium DO Not Attach Compendium, Do Not Delete/merge, [id number] 06/09/2023 19:41:33 06/09/20 23 06/09/2023 urina lysis , dipst ick Unknown Analyte yes Not Available In-Off ice Order Internal Use Only DO Not Attach Compendium DO Not Attach Compendium, Do Not Delete/merge, [id number] 06/09/2023 19:41:33 10/07/20 22 10/07/2022 audio gram No observ ation record ed. [email or web address] In-House Results For Internal Use Only, Do Not Delete/merge, [id number] 10/07/2022 12:41:46 Result Notes None recorded. Problems Name Problem SNOMED Code Status Onset Date Resolution Date Notes Provider Name and Address Organization Details Recorded Time Asthma 508951399 Active 2013 mild intermitt ent, followed by Dr. Carolin Ndiaye MD [address] [place] [address] [address], [place], [address], [facility] 2 08:45:49 Premenstr ual dysphoric disorder 969651 Active 2018 Daniella Ndiaye MD [address], [place], [address], [facility] 2 08:45:53 Primary dysmenorr hea 21885503 Active [address] 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 Daniella Ndiaye MD [address], [place], [address], [facility] 2 08:45:47 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 625840105665 02 Active 2021 Daniella Ndiaye MD [address], [place], [address], [facility] 2 08:45:45 Anxiety 46116433 Active 2021 Daniella Ndiaye MD [address], [place], [address], [facility] 2 10:51:56 Mixed anxiety and depressiv e disorder 304547023 Active 2022 Daniella Ndiaye MD [address], [place], [address], [facility] 3 15:11:14 Chronic post-trau matic stress disorder 822287862 Active 2022 Daniella Ndiaye MD [address], [place], [address], [facility] 3 15:11:18 Mild persisten t asthma 967477351 Active 2022 GREYSON Rogers null, [facility] 3 10:18:54 Nausea 637198948 Active 2022 Daniella Ndiaye MD [address], [place], [address], [facility] 3 15:02:28 Problem Notes None recorded. Procedures Surgical History Date Name Laterality Status Provider Name and Address Organization Details Recorded Time 3 repair of rectal prolapse completed GREYSON Rogers [facility] 04/30/2023 10:05:44 Imaging Results Imaging Date Name Status LastModified by Organiz ation Details LastModified Time 10/07/2022 audiogram completed [email or web address] In-House Resul ts For Internal Use Only, Do Not Delete/merge, [id number] 10/07/2022 12:41:46 Procedure Notes None recorded. Medical Equipment None Reported. Allergies Allergen ID Allergen Name Allergen Category Reaction Reaction Severity Criticality Documentation Date Start Date Code Code System Note Provider Name and Address Organization Details Recorded Time 85749 tree nut food Not available Not available Not available 06/03/2018 Comme nt: Recor ded 12/03 3:52P M by Franco hong MA, Nurse Visit Prom oted Signi ficcynthia ce: *; Not Available [facility] 8 03:27:00 85782 avocado allergeni c extract food Not available Not available Not available 06/03/2018 62707 2 RxNorm React ion: Banan as, melon s, kiwi; Comme nt: Recor ded 12/03 3:52P M by Franco hong MA, Nurse Visit Prom oted Signi fican ce: *; Not Available [facility] 8 03:27:00 19057 egg extract food,medi cation Not available Not available Not available 06/03/2018 [id number] 15 RxNorm Comme nt: Recor ded 12/03 3:52P M by Franco hong MA, Nurse Visit Prom oted Skye stevens ce: *; Not Available [facility] 8 03:27:00 89498 mustard Not available Not available Not available Not available 06/03/2018 Comme nt: Recor ded 12/03 3:52P M by Franco hong MA, Nurse Visit Prom oted Skye stevens ce: *; Not Available [facility] 8 03:27:00 Medications Name Sig Start Date [...] Available bisacodyl 5 mg tablet,peter yed release 04/30 completed Not Available Not Available Not [...] Not Available Not Available N ot Available [facility] spacer USE DIRECTED. active Not Available Not [...] Updated DateTime 09/30/2022 162.56 cm Arminda Mccann REPLACED BY [facility] 09/30/2022 17:01:44 Date Recorded Body height Heart [...] % 100 % 26.5 kg/m2 87 % 12332.6 3 g 117 mm[Hg] 82 mm[Hg] 115 mm[Hg] 77 mm[Hg] [facility] 2 12:42:58 Date Recorded Body height Body temperature Body mass index (BMI) Body mass index (BMI) Percentile per age and sex Body weight Heart rate Oxygen saturation Oxygen saturation in Arterial blood by Pulse oximetry Provider Name and Address Organization Details Last Updated DateTime 3 161.92 cm 97.3 [degF] 27.3 kg/m2 89 % 61397.5 9 g 108 /min 99 % 99 % [facility] 3 14:49:18 Date Recorded Body height Body temperature Body mass index (BMI) Percentile per age and sex Body mass index (BMI) Body weight Heart rate Oxygen saturation Oxygen saturation in Arterial blood by Pulse oximetry Systolic blood pressure Diastolic blood pressure Provider Name and Address Organization Details Last Updated DateTime 3 161.92 cm 98.1 [degF] 83 % 25.6 kg/m2 09521.6 7 g 98 /min 100 % 100 % 123 mm[Hg] 85 mm[Hg] Med Vivar MA [facility] 3 10:06:28 Date Recorded Systolic blood pressure Diastolic blood pressure Provider Name and Address Organization Details Last Updated DateTime 04/30/2023 114 mm[Hg] 72 mm[Hg] Linsey Noonan MA [facility] 04/30/2023 10:43:55 Date Recorded Body height Body temperature Body mass index (BMI) Percentile per age and sex Body mass index (BMI) Body weight Oxygen saturation Oxygen saturation in Arterial blood by Pulse oximetry Heart rate Provider Name and Address Organization Details Last Updated DateTime 3 161.92 cm 98.5 [degF] 89 % 27.3 kg/m2 22057.5 9 g 100 % 100 % 95 /min Edmar Singh [facility] 3 19:19:38 Social History None recorded. Functional Status None recorded. Mental Status None recorded. Family History Nothing Reported. Medical History No medical history recorded. Gynecological HistoryNo gynecological history recorded. Obstetrics History GPAL:G 0 P 0 0 0 0 Immunizations Vaccine Type Date Status Provider Name and Address Organization Details Recorded Time HPV9 04/19/2019 completed Not Available [facility] 02:17:57 MMR 03/20/2015 completed Not Available [facility] 05:26:14 varicella 06/17/2018 completed Not Available [facility] 05:26:14 varicella 07/06/2020 completed Rachael Blair CMA null, [facility] 07/06/2020 17:53:37 Influenza, split virus, quadrivalent, PF 09/03/2020 completed Ricshell Straughter null, [facility] 09/03/2020 17:58:08 meningococcal B, OMV 09/24/2020 completed Daniella Ndiaye MD [address], [place], [address], [facility] 09/24/2020 12:04:12 HPV9 09/24/2020 completed Daniella Ndiaye MD [address], [place], [address], [facility] 09/24/2020 12:04:12 Influenza, split virus, quadrivalent, PF 09/05/2021 completed Rylie KEYES null, [facility] 09/05/2021 13:27:00 meningococcal B, OMV 10/22/2021 completed Louise Anguianoo null, [facility] 10/22/2021 11:29:42 meningococcal MCV4P 10/22/2021 completed Louise Montero jillo null, [facility] 10/22/2021 11:54:33 Influenza, split virus, quadrivalent, PF 09/30/2022 completed Daniella Ndiaye MD [address] [facility] [address], [place], [address], [facility] 10/05/2022 22:59:00 Tdap 10/07/2022 completed Daniella Ndiaye MD [address] [facility] [address], [place], [address], [facility] 10/11/2022 10:50:40 Hep A, ped/adol, 2 dose [...] [facility] 05:26:14 IPV 05/07/2009 completed Not Available [facility] 05:26:13 Hib (PRP-OMP) 08/25/2005 completed Not Available [facility] 06/17/2023 05:26:14 DTaP 2004 completed Not Available [facility] 05:26:14 IPV 2004 completed Not Available [facility] 05:26:13 DTaP 2004 completed Not Available [facility] 05:26:14 Hep B, adolescent or pediatric 2004 completed Not Available [facility] 06/17/2023 05:26:14 Hep B, adolescent or pediatric 2004 completed Not Available [facility] 06/17/2023 05:26:14 DTaP 05/07/2009 completed Not Available [facility] 05:26:14 pneumococcal conjugate PCV 7 04/25/2005 completed Not Available [facility] 06/17/2023 05:26:14 Tdap 12/03/2015 completed Not Available [facility] 05:26:14 meningococcal MCV4P 12/03/2015 completed Not Available [facility] 06/17/2023 05:26:14 Hib (PRP-OMP) 2004 completed Not Available [facility] 06/17/2023 05:26:14 Hep A, ped/adol, 2 dose 02/19/2011 completed Not Available Formerly [facility], later [facility] 06/17/2023 05:26:14 Past Encounters Encounter ID Performer Location Encounter Start Date Encounter Closed Date Diagnosis/Indication Diagnosis SNOMED-CT Code Diagnosis ICD10 Code [id number] [facility] [address] [place] [address] 04/19/2019 08:53:17 04/19/2019 10:12:52 Well child 504456634 Z00.121 Premenstru al dysphoric disorder 740145 F32.81 Mild inter mittent asthma 355748022 J45.20 Allergy to food 43993485 1 Z91.829 [id number] Rachael Blair CMA [facility] [address] [place] [address] 07/06/2020 16:32:55 07/10/2020 10:48:58 Active or passive immunization 045849930 Z23 [id number] [facility] [address] 18[address],[facility] [address], [address] [address] 09/03/2020 17:44:07 09/05/2020 11:43:24 Administration of influenza vaccine 23464036 Z23 [id number] Daniella Ndiaye MD [facility] [address],[facility] [address], [address] [address] 09/24/2020 11:03:00 09/24/2020 12:06:10 Well child 154704117 Z00.129 Allergy to food 60976962 1 Z91.018 Rectal prolapse 12856639 K62.3 [id number] Daniella Ndiaye MD [facility] [address] 1826,[facility] [address], [address] [address] 10/15/2020 16:50:13 10/15/2020 17:13:01 Fever 645374722 R50.9 [id number] Karla Franco [facility] [address],[facility] [address], [address] [address] 09/05/2021 12:02:57 09/05/2021 13:29:05 Pharyngitis 307828635 J02.9 Administra tion of influenza vaccine 14998284 Z23 Suspected COVID-19 32198 4004 Z20.272 [id number] Daniella Ndiaye MD Pediatric [facility] [address],[facility] [address], [address] [address] 10/22/2021 09:50:55 10/22/2021 11:19:28 Well child visit 264801966 Z00.121 Vitamin D deficiency 347 57485 E55.9 Screening for disorder 608680013 Z13.9 Symptoms o f depression 229780684 F32.89 [id number] Daniella Ndiaye MD [facility] [address],[facility] [address], [address] [address] 02/24/2022 16:52:55 02/26/2022 10:02:02 Easy bruising 349287691 R58 Allergic r eaction caused by egg protein 0355986305 6109167 T78.1XXD 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 4882 152407 2007 Z91.018 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 8242400174 2101 Z91.018 Anxiety 38853208 F41.9 [id number] Daniella Ndiaye MD [facility] [address],[facility], [address] [place] [address] 09/30/2022 16:36:51 10/06/2022 12:58:51 Active or passive immunization 893329382 Z23 [id number] Daniella Ndiaye MD [facility] [address] 18[address],[facility], [address] [place] [address] 10/07/2022 11:01:27 10/07/2022 12:12:00 Adult health examination 519311092 Z00.00 [id number] Daniella Ndiaye MD [facility] [address],[facility], [address] [place] [address] 01/20/2023 14:43:29 01/20/2023 15:23:15 Mixed anxiety and depressive disorder 051259889 F41.8 Allergy to food 13776647 1 Z91.018 Chronic post-traumatic stress disorder 513916949 F43.12 [id number] Daniella Ndiaye MD [facility] [address],[facility], [address] [place] [address] 04/30/2023 10:01:04 04/30/2023 10:44:04 Adult health examination 419725365 Z00.00 Mixed anxi ety and depressive disorder 601948808 F41.8 Chronic post-traumatic stress disorder 861624338 F43.12 Primary dysmenorrhea 657 [address]648 N94.4 Allergy to food 77967238 1 Z91.018 Nausea 303356233 R11.0 Mild persi stent asthma 152218036 J45.30 Viral screening 73740239 4 Z11.59 Elevated blood-pressure reading without diagnosis of hypertension 747980421 R03.0 [id number] REBECCA MASON NP [facility] [address],[facility], [address] [place] [address] 06/09/2023 19:08:56 06/09/2023 19:54:44 Dysuria 34478096 R30.0 Acute urin christiano tract infection 067095709 N39.0 Health Concerns Section Related Observation LastModified by Organization Detai ls LastModified Time None Recorded Concern Status LastModified by Organization Details LastModified Time None Recorded Advance Directives Directive None Recorded Payers Encounter Date Sequence Insurance Name Policy Number Policy Hager Covered Member ID Hager Member ID Guarantor Name 09/30/2022 1 [facility] [id number] Jerson Tsang [id number] Jerson Tsang 10/07/2022 1 [facility] [id number] Jerson Tsang [id number] Jerson Tsang 01/20/2023 1 [facility] [id number] Jerson Tsang [id number] Jerson Tsang 04/30/2023 1 [facility] [id number] Jerson Tsang [id number] Jerson Tsang 06/09/2023 1 [facility] [id number] Jerson Tsang [id number] Jerson Tsang Notes Date Note Type Note Provider Name and Address Organization Details Recorded Time 10/07/2022 text/html The child lives with his/her {{mother and father* mother moth ers father fathers foster family grandparents guardian(s)}} and {{is an only child sibling* sibl ings}}. Additional family members include {{no others* step parent(s) extended family non-family members}}. Parents are {{* unmarrie d}}. Dad {{works outside the home works from home* is a stay at home parent is on paternity leave is not involved with parenting}}. Mom {{works outside the home works from home* is a stay at home parent is on maternity leave is not involved with parenting}}. hospice care sales consultant provided by {{parent(s) daycare center in-home daycare Mother's Day Out program plant sciences professor/ extended family not required*}}. The child {{is is not*}} subject to a legal custody or visitation arrangement. Tobacco exposure is {{none* present within the household}}. She has had minimal flaring of asthma - albuterol use no more than once or twice. Daniella Ndiaye MD [address], [place], [address], [facility] 10/11/2022 10:52:00 01/20/2023 text/html Crystal presents for follow up for suicidal episode while in college within the last several weeks.She met with Dr. Colin this morning. Symptoms [...] depression screen while being seen in the student health center for a minor concern and it [...] for spring break on the new medication management.Auvelity x 3 weeks 1 tablet twice daily seems to have been at least helpful early on. She heads back tomorrow & she is going to participate in a [employer] course so she'll be relatively isolated in the dorm (most kids won't be there). Parents won't be with her. They've agreed to FaceTime daily which seems to provide some good reassurance. She has a local therapist in college but may switch to more EMDR-based therapy rather than DBT due to diagnosed PTSD. Daniella Ndiaye MD [address] [place] [address] [address], [place], [address], [facility] 01/25/2023 12:53:03 04/30/2023 text/html The child lives with his/her {{mother and father* mother moth ers father fathers foster family grandparents guardian(s)}} and {{is an only child sibling* sibl ings}}. Additional family members include {{no others* step parent(s) extended family non-family members}}. Parents are {{* unmarrie d}}. Dad {{works outside the home works from home* is a stay at home parent is on paternity leave is not involved with parenting}}. Mom {{works outside the home works from home* is a stay at home parent is on maternity leave is not involved with parenting}}. hospice care sales consultant provided by {{parent(s) daycare center in-home daycare Mother's Day Out program plant sciences professor/ extended family not required*}}. The child {{is is not*}} subject to a legal custody or visitation arrangement. Tobacco exposure is {{none* present within the household}}. She has had minimal flaring of asthma - albuterol use no more than once or twice in the last year, usually 2-3 days at a time. Daniella Ndiaye MD [address], [place], [address], [facility] 04/30/2023 15:02:35 06/09/2023 text/html Pediatric Dysuri a HPI CPPFMReported bypatient.Quality:b urning Severity:worsening Onset/Timin-4wee ks ago Context:Patient had rectal prolapse surgery 2 months ago; had f/u with MD today via telemedicine; recommended getting UA due to the symptoms Crystal is experiencing. The MD said UTIs are common after this kind of surgery. Associated Symptoms:no fever; no blisters on genitals; no rash on genitals; no gross hematuria; no flank pain;smaller urine stream(sometimes dribbles, sometimes normal stream);changes in urinary habits: urinary frequency; some stomach ziyu-equslmrs-xocfo nt was just on her period as well; urgency presentNotes:Sara yi presents to clinic with mom for pain when urinating. REBECCA MASON NP [address], [place], [address], [facility] 06/11/2023 09:02:04 OBGyn Episode No OBEpisode recorded.
[2024-09-10 20:45] VITALS: BP 128/88; PULSE 120; RESP 18; TEMP 36.9; O2SAT 97; BMI 25.7
--- NOTE | 2024-09-10 20:48 | ED.GENADULT ---
HPI - General Adult General Chief complaint: Allergic Reaction <Melody Modi MD - Last Filed: 09/11/24 23:55> Stated complaint: Allergic reaction; vomiting, labored breathing <Melody Modi MD - Last Filed: 09/11/24 23:55> Time Seen by Provider: 09/10/24 20:48 <Melody Modi MD - Last Filed: 09/11/24 23:55> Source: patient <Melody Modi MD - Last Filed: 09/11/24 23:55> Mode of arrival: ambulatory <Melody Modi MD - Last Filed: 09/11/24 23:55> Limitations: no limitations <Melody Modi MD - Last Filed: 09/11/24 23:55> History of Present Illness HPI narrative: 19-year-old female presenting today with concerns about anaphylactic reaction. Patient has multiple allergies and carries an EpiPen around with her. She states that she ate at the dining garcia which she normally does not do and began to feel a lump in her throat shortly thereafter. She states that she then started vomiting and this made her very scared so she took her EpiPen and she presents now. She took her EpiPen approximately 20 minutes ago. She states that she still feels a lump in her throat. Is not having any difficulty breathing or swallowing. Denies any hives. Patient is also concerned because she states that she has had ?biphasic reactions in the past. <Melody Modi MD - Last Filed: 09/11/24 23:55> Related Data Home medications: Home Medications ?Medication ?Instructions ?Recorded ?Confirmed epinephrine 0.3 mg/0.3 mL 0.3 mg IM Q15M PRN 12/28/22 02/02/23 injection, auto-injector (Auvi-Q) levonorgestrel (Mirena) 1 device intrauterine 12/28/22 dextromethorphan IR 45 1 tab PO BID 02/02/23 02/02/23 mg-bupropion ER 105 mg biphasic tablet (Auvelity) bupropion HCl 100 mg tablet,12 hr 100 mg PO DAILY 12/12/23 12/12/23 sustained-release (Wellbutrin SR) sertraline 100 mg tablet 100 mg PO DAILY 12/12/23 12/12/23 spironolactone 100 mg tablet 100 mg PO DAILY 12/12/23 12/12/23 <Melody Modi MD - Last Filed: 09/11/24 23:55> Allergies/adverse reactions: Allergies Allergy/AdvReac Type Severity Reaction Status Date / Time avocado Allergy Verified 02/02/23 18:42 cashew nut Allergy Verified 02/02/23 18:42 egg Allergy Verified 02/02/23 18:42 pistachio nut Allergy Verified 02/02/23 18:42 sesame seed Allergy Verified 02/02/23 18:42 tree nut Allergy Verified 02/02/23 18:42 <Melody Modi MD - Last Filed: 09/11/24 23:55> Review of Systems Status of ROS: Reports: 10 or more systems reviewed and unremarkable except as noted in History and below <Melody Modi MD - Last Filed: 09/11/24 23:55> [facility] Medical History: Medical History Anaphylactic reaction ?T78.2XXA - Anaphylactic shock, unspecified, initial encounter (ICD-10) Asthma, exercise induced ?J45.990 - Exercise induced bronchospasm (ICD-10) Depression ?F32.A - Depression, unspecified (ICD-10) <Melody Modi MD - Last Filed: 09/11/24 23:55> Social History: Social History Smoking Status: Never smoker Do you use any of these nicotine containing products: None Second hand tobacco smoke exposure: No How often do you have a drink containing alcohol: never AUDIT-C Alcohol total score: 0 Non-prescribed substance use: denies use service: No <Melody Modi MD - Last Filed: 09/11/24 23:55> Exam Narrative: Exam Narrative: Well-nourished well-developed rather anxious young woman. Alert and oriented. Answers questions appropriately. Thoughts are goal oriented and rational. No tangential or magical thinking noted. Patient speaks in full sentences without needing to catch her breath. Speech is not slurred or pressured. HEENT: Normocephalic atraumatic. Pupils are equally round reactive to light. Extraocular muscles are intact. Conjunctivae are moist without any icterus noted. Moist mucous membranes. Posterior pharynx is normal. Neck is soft without any lymphadenopathy or thyromegaly. No masses are appreciated. She has no swelling of the tongue, lip or posterior pharynx. Cardiovascular: Tachycardic, S1-S2 present without murmurs. Lungs: Clear to auscultation bilaterally no wheezes rhonchi or rales are appreciated. Patient takes deep breaths without any discomfort. Abdomen: Soft and nontender nondistended. Skin: Well perfused without any obvious rashes. <Melody Modi MD - Last Filed: 09/11/24 23:55> Const: Vital Signs, click to edit/add: Vital Signs - 24 hr 09/10/24 20:45 09/10/24 21:27 09/10/24 21:49 Temperature 98.5 F Pulse Rate [Right Pulse Oximeter] 120 H Respiratory Rate 18 16 Blood Pressure [Ri ght Upper Arm] 128/88 Pulse Oximetry 97 99 99 Oxygen Delivery Me thod Room Air Room Air 09/10/24 22:26 09/10/24 23:38 Temperature Pulse Rate [Right Pulse Oximeter] 100 Respiratory Rate 16 18 Blood Pressure [Ri ght Upper Arm] Pulse Oximetry 99 96 Oxygen Delivery Me thod Room Air Room Air <Melody Modi MD - Last Filed: 09/11/24 23:55> Vital Signs, click to edit/add: Vital Signs - 24 hr 09/10/24 20:45 09/10/24 21:27 09/10/24 21:49 Temperature 98.5 F Pulse Rate [Right Pulse Oximeter] 120 H Respiratory Rate 18 16 Blood Pressure [Ri ght Upper Arm] 128/88 Pulse Oximetry 97 99 99 Oxygen Delivery Me thod Room Air Room Air 09/10/24 22:26 09/10/24 23:38 Temperature Pulse Rate [Right Pulse Oximeter] 100 Respiratory Rate 16 18 Blood Pressure [Ri ght Upper Arm] Pulse Oximetry 99 96 Oxygen Delivery Me thod Room Air Room Air <Melody Garcia MD - Last Filed: 09/11/24 00:13> Course Course ED Course: Unclear at this time with patient is having allergic reaction or she had an anxiety attack. She is having no obvious signs of allergic reaction at this time. Did give her 1 oral dose of prednisone in 1 dose of IV Benadryl. Will monitor her for the next couple of hours to make sure she remains stable. Care will be transferred to the oncoming physician. <Melody Modi MD - Last Filed: 09/11/24 23:55> Reevaluation(s) Time of Reevaluation #1: 22:43 <Melody Garcia MD - Last Filed: 09/11/24 00:13> Reevaluation #1: I checked on patient, she was sleeping. Did awaken her. She is tired from the Benadryl but otherwise feeling good. No recurrence symptoms at this point. She does state that she has a history of late rebound reaction. We discussed observation for at least 4 hours, she would prefer this. She would typically take a few more days worth of steroids. She would like these from [facility]. She understands that this will be a 5 day course, she probably only needs 2-3 days worth and thus will have extra tablets. She is fine with this. <Melody Garcia MD - Last Filed: 09/11/24 00:13> Time of Reevaluation #2: 00:13 <Melody Garcia MD - Last Filed: 09/11/24 00:13> Reevaluation #2: Patient has remained stable, will discharge to home at this time. <Melody Garcia MD - Last Filed: 09/11/24 00:13> Vital Signs Vital signs: Initial Vital Signs Temperature 98.5 F 09/10/24 20:45 Temperature Source Temporal Artery Scan 09/10/24 20:45 Pulse Rate 120 H 09/10/24 20:45 Pulse Rhythm Regular 09/10/24 20:45 Respiratory Rate 18 09/10/24 20:45 Blood Pressure 128/88 09/10/24 20:45 Blood Pressure Mean 101 09/10/24 20:45 Blood Pressure Position Sitting 09/10/24 20:45 Pulse Oximetry 97 09/10/24 20:45 Oxygen Delivery Method Room Air 09/10/24 20:45 Vital Signs Temperature 98.5 F 09/10/24 20:45 Pulse Rate 120 H 09/10/24 20:45 Respiratory Rate 18 09/10/24 20:45 Blood Pressure 128/88 09/10/24 20:45 Pulse Oximetry 97 09/10/24 20:45 Oxygen Delivery Method Room Air 09/10/24 20:45 Temperature 98.5 F 09/10/24 20:45 Pulse Rate 100 09/10/24 23:38 Respiratory Rate 18 09/10/24 23:38 Blood Pressure 128/88 09/10/24 20:45 Pulse Oximetry 96 09/10/24 23:38 Oxygen Delivery Method Room Air 09/10/24 23:38 <Melody Modi MD - Last Filed: 09/11/24 23:55> Initial Vital Signs Temperature 98.5 F 09/10/24 20:45 Temperature Source Temporal Artery Scan 09/10/24 20:45 Pulse Rate 120 H 09/10/24 20:45 Pulse Rhythm Regular 09/10/24 20:45 Respiratory Rate 18 09/10/24 20:45 Blood Pressure 128/88 09/10/24 20:45 Blood Pressure Mean 101 09/10/24 20:45 Blood Pressure Position Sitting 09/10/24 20:45 Pulse Oximetry 97 09/10/24 20:45 Oxygen Delivery Method Room Air 09/10/24 20:45 Vital Signs Temperature 98.5 F 09/10/24 20:45 Pulse Rate 120 H 09/10/24 20:45 Respiratory Rate 18 09/10/24 20:45 Blood Pressure 128/88 09/10/24 20:45 Pulse Oximetry 97 09/10/24 20:45 Oxygen Delivery Method Room Air 09/10/24 20:45 Temperature 98.5 F 09/10/24 20:45 Pulse Rate 100 09/10/24 23:38 Respiratory Rate 18 09/10/24 23:38 Blood Pressure 128/88 09/10/24 20:45 Pulse Oximetry 96 09/10/24 23:38 Oxygen Delivery Method Room Air 09/10/24 23:38 <Melody Garcia MD - Last Filed: 09/11/24 00:13> Medications Administered Medications: Discontinued Medications Generic Name Dose Route Start Last Admin Trade Name Freq PRN Reason Stop Dose Admin Diphenhydramine HCl 25 mg 09/10/24 20:52 09/10/24 21:16 Diphenhydramine 50 Mg/Ml Inj IVP 09/10/24 20:53 25 mg ONCE ONE Administration Prednisone 50 mg 09/10/24 20:52 09/10/24 21:15 Prednisone 10 Mg Tablet PO 09/10/24 20:53 50 mg ONCE ONE Administration <Melody Modi MD - Last Filed: 09/11/24 23:55> Discontinued Medications Generic Name Dose Route Start Last Admin Trade Name Jadq PRN Reason Stop Dose Admin Diphenhydramine HCl 25 mg 09/10/24 20:52 09/10/24 21:16 Diphenhydramine 50 Mg/Ml Inj IVP 09/10/24 20:53 25 mg ONCE ONE Administration Prednisone 50 mg 09/10/24 20:52 09/10/24 21:15 Prednisone 10 Mg Tablet PO 09/10/24 20:53 50 mg ONCE ONE Administration <Melody Garcia MD - Last Filed: 09/11/24 00:13> Discharge Plan Discharge Clinical Impression: Allergic reaction <Melody Modi MD - Last Filed: 09/11/24 23:55> Instructions: Food Allergy (ED), Anaphylaxis (ED) <Melody Modi MD - Last Filed: 09/11/24 23:55> Additional Instructions: Recommend follow-up with your bailing machine operator regarding this reaction, please at least contact them next week when you are able to. Take prednisone 20 mg twice a day for the next to days. Can use Benadryl if needed for any return of mild symptoms. If you have any evidence concerning allergic symptoms, do recommend taking your EpiPen and seeking emergent medical evaluation. <Melody Modi MD - Last Filed: 09/11/24 23:55> Activity Level: No Restrictions <Melody Modi MD - Last Filed: 09/11/24 23:55> No Restrictions <Melody Garcia MD - Last Filed: 09/11/24 00:13> Prescriptions: No Action spironolactone 100 mg tablet 100 mg PO DAILY sertraline 100 mg tablet 100 mg PO DAILY bupropion HCl [Wellbutrin SR] 100 mg tablet sustained-release 12 hr 100 mg PO DAILY epinephrine [Auvi-Q] 0.3 mg/0.3 mL auto-injector 0.3 mg IM Q15M PRN Patient Comments: INJECT 0.3 ML IN THE MUSCLE NEEDED Mirena 21 mcg/24 hours (8 yrs) 52 mg intrauterine device 1 device intrauterine Auvelity 45-105 mg tablet,IR,delayed rel,biphasic 1 tab PO BID <Melody Modi MD - Last Filed: 09/11/24 23:55> Follow Up/Referrals: Provider,Not a Local [Primary Care Provider] - <Melody Modi MD - Last Filed: 09/11/24 23:55> Stand Alone Forms: MyHealth Info Instructions <Melody Modi MD - Last Filed: 09/11/24 23:55>
--- OUTSIDE RECORDS SUMMARY | 2024-09-10 20:55 | XMS_ITS | Data Portability ---
Author Organization [facility] - Azeem as, [id number] Address [address] [address] Care Team Providers Care Tank Calibrator Name Role Phone OZ MARIE Referring Provider Assessment Encounter Date Assessment Date Assessment LastModified by Organization Details LastModified Time 10/03/2022 10/03/2022 17yo with PMDD, mood disorder, and disordered eating here for follow up Not available 10/04/2022 11:14:23 12/05/2022 12/05/2022 17yo with PMDD, mood disorder, and disordered eating here for follow up Not available 12/06/2022 12:17:27 Plan of Treatment Reminders Order Date Submit Date Provider Last Modified By Organization Details Last Modified Time Details Appointments None recorded. Lab egg white ige, serum 2021 022 [facility] (Blood Not Drawn At This Location), Visit [place], [address], 11:55:56 egg yolk ige, serum 2021 022 [facility] (Blood Not Drawn At This Location), Visit [place], [address], 11:55:56 pistachio ige, serum 2021 022 [facility] (Blood Not Drawn At This Location), Visit [place], [address], 11:55:56 cashew nut ige, serum 2021 [facility] Main Lab (Blood Not Drawn At This Location), Visit [place], [address], 11:55:56 avocado ige, serum [facility] (Blood Not Drawn At This Location), Visit [place], [address], 11:55:56 sesame seed ige, serum 2021 [facility] (Blood Not Drawn At This Location), Visit [place], [address], 11:55:56 rice ige, serum 2021 [facility] (Blood Not Drawn At This Location), Visit [place], [address], 11:55:56 ige, total, serum 2021 [facility] (Blood Not Drawn At This Location), Visit [place], [address], 11:55:56 Referral None recorded. Procedures None recorded. Surgeries None recorded. Imaging None recorded. Medication Orders fluoxetine [address] [facility] [place] [id number] ([id number]), [address], [place], [place], [id number], 15:31:17 Patient TargetsNo targets recorded. Patient InstructionsNo instructions recorded. Reason for Referral None Reported. Results Created Date Observation Date Name Description Value Unit Range Abnormal Flag Note LastModifiedBy Organization Detail LastModifiedTime 10/02/20 22 10/03/2022 EGG WHITE IGE egg white IgE 67.10 kU/L <0.35 high Not Available [facility] (Blood Not Drawn At This Location) Visit [place], [address], 10/03/2022 17:25:51 10/02/20 22 10/03/2022 EGG WHITE IGE egg white class 5 high Testi ng Perfo rmed At: [email or web address] [employer] [employer] [address] [place] [address] Labor atory Direc tor: Faith Lucia [id number] [place] [id number] -01 Not Available [facility] (Blood Not Drawn At This Location) Visit [place], [address], 10/03/2022 17:25:51 10/02/20 22 10/03/2022 RICE IGE rice IgE 0.81 kU/L <0.35 high Not Available [facility] (Blood Not Drawn At This Location) Visit [place], [address], 10/03/2022 17:25:52 10/02/20 22 10/03/2022 RICE IGE rice class 2 high Testi ng Perfo rmed At: [email or web address] [employer] [address] [place] [address] Labor atory Direc tor: Faith Lucia [id number] [place] [id number] -01 Not Available [facility] (Blood Not Drawn At This Location) Visit [place], [address], 10/03/2022 17:25:52 10/02/20 22 10/03/2022 CASHE W NUT IGE cashew nut IgE 1.37 kU/L <0.35 high Not Available [facility] Lab (Blood Not Drawn At This Location) Visit [place], [address], 10/03/2022 17:25:53 10/02/20 22 10/03/2022 CASHE W NUT IGE cashew class 2 high Testi ng Perfo rmed At: [facility] [employer] [address] [place] [address] Labor atory Direc tor: Faith Lucia [id number] [place] [id number] -01 Not Available [facility] (Blood Not Drawn At This Location) Visit [place], [address], 10/03/2022 17:25:53 10/02/20 22 10/03/2022 PISTA YARED NUT IGE pistachio nut IgE 3.11 kU/L <0.35 high Not Available [facility] (Blood Not Drawn At This Location) Visit [place], [address], 10/03/2022 17:25:53 10/02/20 22 10/03/2022 PISTA YARED NUT IGE pistachio nut class 2 high Testi ng Perfo rmed At: [facility] [employer] [address] [place] [address] Labor atory Direc tor: Faith Lucia [id number] [place] [id number] -01 Not Available [facility] Lab (Blood Not Drawn At This Location) Visit [place], [address], 10/03/2022 17:25:53 10/02/20 22 10/03/2022 EGG YOLK IGE egg yolk IgE 24.80 kU/L <0.35 high Not Available [facility] - Main Lab (Blood Not Drawn At This Location) Visit [place], [address], 10/03/2022 17:25:54 10/02/20 22 10/03/2022 EGG YOLK IGE egg yolk class 4 high Testi ng Perfo rmed At: [facility] [address] [place] [address] Labor atory Direc tor: Faith Lucia r [id number] [place] [id number] -01 Not Available [facility] (Blood Not Drawn At This Location) Visit [place], [address], 10/03/2022 17:25:54 10/02/20 22 10/03/2022 SESAM E SEED IGE sesame seed IgE 3.09 kU/L <0.35 high Not Available [facility] - Main Lab (Blood Not Drawn At This Location) Visit [place], [address], 10/03/2022 17:25:55 10/02/20 22 10/03/2022 SESAM E SEED IGE sesame seed class 2 high Testi ng Perfo rmed At: [facility] [employer] [employer] [address] [place] [address] Labor atory Direc tor: Faith Lucia [id number] [place] [id number] -01 Not Available [facility] (Blood Not Drawn At This Location) Visit [place], [address], 10/03/2022 17:25:55 10/02/20 22 10/03/2022 AVOCA DO IGE avocado IgE 26.00 kU/L <0.35 high Not Available [facility] (Blood Not Drawn At This Location) Visit [place], [address], 10/03/2022 17:25:56 10/02/20 22 10/03/2022 AVOCA DO IGE avocado class 4 high Testi ng Perfo rmed At: [facility] [address] [place] [address] Labor [employer] Dire tor: Faith Lucia Numbshay r [id number] [place] [id number] -01 Not Available [facility] Lab (Blood Not Drawn At This Location) Visit [place], [address], 10/03/2022 17:25:56 10/02/20 22 10/03/2022 IMMUN OGLOB ULIN E (IGE) immunoglobul in E (IgE) 889 kU/L <=219 high Testi ng Perfo rmed At: [facility] [address] [place] [address] [employer] Dire tor: Faith Lucia Numbshay r [id number] [place] [id number] -01 Not Available [facility] Lab (Blood Not Drawn At This Location) Visit [place], [address], 10/03/2022 17:25:56 10/02/20 22 10/03/2022 CPL ALLER GENS interpretati on: (NOTE) CLASS RANGE (ku/L ) INTER PRETA TION 0 <0.10 Anna l, no speci fic IgE ident ified 0/1 0.10- 0.34 Equiv ocal, indet ermin ate signi fican ce 1 0.35- 0.69 Low level speci fic IgE 2 0.70- 3.49 Moder ate level speci fic IgE 3 3.50- 17.49 High level speci fic IgE 4 17.50 -49.9 9 Very high level s 5 50.00 -99.9 9 of speci fic IgE 6 >=100 .00 antib odies Note: Test resul ts refle ct expan ded stephany tic measu rable range . Aller gen speci fic IgE value s of 0.10- 0.34 kU/L (clas s 0/1) are of indet ermin ate signi fican ce and may requi re speci fic clini zan exper tise for inter preta tion. Other than peanu t and peanu t compo nents , value s in this range will not be repor teto with out of range mauri ing. Testi ng perfo rmed on Phadi a 1000 using Immun oCAP Speci fic IgE reage nts. * If Antib odies are follo wed by an bebe isk (*) they have been devel oped and their perfo rmanc e brandi cteri stics deter mined by [facility] [employer] ([facility]) . They have not been clear ed or appro keaton by the U.S. Food and Drug Admin istra tion (FDA) . The FDA has deter mined that such clear ance or appro yuki is not neces alanna. These assay s are inten ded to be used for clini zan purpo ses. Stephany te speci fic reage nts were used. They shoul d not be regar ded as inves tigat ional or for resea rch. [facility]PL is regul ated under the [facility] atory Impro vemen t Amend ments of 1987 (CLIA ) as quali fied to perfo rm high compl exity clini zan testi ng. Testi ng Perfo rmed At: [facility] [employer] [address] [place] [address] Labor [facility] Direc tor: Jerson farmer M.D. CLIA Numbe r [id number] [place] [id number] -01 Not Available [facility] Main Lab (Blood Not Drawn At This Location) Visit [facility] For Location [facility], [place], [address], 10/03/2022 17:25:57 Result Notes None recorded. Problems Name Problem SNOMED Code Status Onset Date Resolution Date Notes Provider Name and Address Organization Details Recorded Time Primary dysmenorrhea 91932359 Active 2017 MASSIEL PAYNE NP [address] [facility],[address], [place], [address] , [facility] 8 01:37:32 Premenstrual dysphoric disorder 745009 Active 2017 MASSIEL PAYNE NP [address] [facility],[address], [place], [address] , [facility] 8 01:37:38 Acne vulgaris 56990592 Active 2017 MASSIEL PAYNE NP [facility]5 [facility],[address], [place], [address] , [facility] 8 01:37:45 Allergy to drug 252216849 Active 2018 Milton Camejo MD [address] [place], [place] [address], [place], [address] , 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 6 21:58:10 Allergic rhinitis 07204610 [facility] 09:23:06 Asthma 513506923 Active Brittany Coe MD [address] [place], [place] [address], [place], [address] , [facility] 6 21:58:10 Problem Notes None recorded. Procedures Surgical History Date Name Laterality Status Provider Name and Address Organization Details Recorded Time 10/02/20 Food Skin Test (A/I) completed Tasha Martin [facility] 10/02/2022 12:47:06 06/27/20 22 Allergy Injections completed Tasha Veronica [place] [facility] 06/27/2022 15:13:38 05/29/20 22 Allergy Injections completed Dahiana Estrellaas [place] [facility] 05/29/2022 10:26:31 05/02/20 22 Allergy Injections completed Cristina Burch [place] [facility] 05/02/2022 10:11:11 05/01/20 22 IUD Insertion completed MASSIEL PAYNE, LEARNING ANALYST [address] [facility],[address], [place], [address], [place] [facility] [place] 05/01/2022 12:36:53 03/25/20 22 Allergy Injections completed Lizett Alvese [place] [facility] 03/25/2022 09:33:54 02/27/20 22 Allergy Injections completed Maritza Cop[place]ague [place] [facility] 02/26/2022 10:16:30 02/01/20 22 Allergy Injections completed Tasha Veronica [place] [facility] 01/31/2022 14:11:25 01/02/20 22 Allergy Injections completed Eliza June [place] [facility] 01/01/2022 13:05:26 11/25/19 22 Allergy Injections completed Lizett Recinoscke [place] [facility] 11/25/2021 09:18:15 10/18/20 21 Allergy Injections completed Tasha Veronica [place] [facility] 10/18/2021 14:24:30 09/18/20 21 Allergy Injections completed Maritza José [place] [facility] 09/18/2021 09:19:27 08/12/20 21 Allergy Injections completed Lizett Jorjecke [place] [facility] 08/12/2021 12:56:01 07/15/20 21 Allergy Injections completed Lizett Recinoscke [place] [facility] 07/15/2021 09:04:42 06/13/20 21 Allergy Injections completed Lizett Jorjecke [place] [facility] 06/13/2021 10:37:42 06/07/20 21 Supervised oral food challenge completed Maritza Kumar [place] [facility] [place] 06/04/2021 17:00:12 05/16/20 21 Allergy Injections completed Lizett Soares [place] [facility] [place] 05/16/2021 14:10:19 04/15/20 21 Food Skin Test (A/I) completed Tasha Veronica [place] [facility] 04/15/2021 10:55:26 03/15/20 21 Allergy Injections completed Tasha Veronica [place] [facility] 03/15/2021 12:01:31 02/09/20 21 Allergy Injections completed Shannon Houston [place] [facility] [place] 02/08/2021 12:37:16 12/28/19 21 Allergy Injections completed Shannon Purdyoz [place] [facility] [place] 12/28/2020 12:01:09 11/29/19 21 Allergy Injections completed Shannon Houston [place] [facility] [place] 11/29/2020 12:10:40 10/30/20 20 Allergy Injections completed Alina Luis Antonio [place] [facility] [place] 10/30/2020 10:28:14 09/20/20 20 Allergy Injections completed Shannon Purdyoz [place] [facility] [place] 09/20/2020 11:32:34 08/14/20 20 Allergy Injections completed Mariluz Lechuga [place] [facility] [place] 08/14/2020 12:32:36 07/05/20 20 Allergy Injections completed Saadia Farah [place] [facility] [place] 07/05/2020 09:50:26 06/07/20 20 Allergy Injections completed Christi Leivaa [place] [facility] [place] 06/07/2020 12:36:38 05/03/20 20 Allergy Injections completed Tasha Veronica [place] [facility] [place] 05/03/2020 13:47:03 03/29/20 20 Allergy Injections completed Christi Hendricks [place] [facility] [place] 03/29/2020 09:34:28 02/23/20 20 Allergy Injections completed Tasha Veronica [place] [facility] 02/23/2020 10:06:06 01/18/20 20 Allergy Injections completed Lulu Tipps [place] [facility] 01/18/2020 14:17:58 12/19/19 20 Allergy Injections completed Lizett Jorjecke [place] [facility] 12/19/2019 10:18:41 11/22/19 20 Allergy Injections completed Lizett Jorjecke [place] [facility] 11/22/2019 16:19:45 10/21/20 19 Allergy Injections completed Lulu Tipps [place] [facility] 10/21/2019 13:19:42 09/22/20 19 Allergy Injections completed Tasha Veronica [place] [facility] 09/22/2019 16:07:13 08/15/20 19 Allergy Injections completed Christi Leivaa [facility] 08/15/2019 12:12:25 07/21/20 19 Allergy Injections completed Lizett Recinoscke [facility] 07/21/2019 15:42:28 06/20/20 19 Allergy Injections completed Lizett Kolupecke [facility] 06/20/2019 15:12:56 05/31/20 19 Supervised oral food challenge completed Brittany Coe MD [address] [place] [address],[address], [place], [address], [facility] 05/31/2019 11:31:24 05/19/20 19 Allergy Injections completed Christi Hendricks [facility] 05/19/2019 15:04:33 04/22/20 19 Food Skin Test (A/I) completed Brittany Coe MD [address] [facility],[address], [place], [address], [facility] 04/22/2019 12:03:39 04/22/20 19 [place]ergy [place] [address] [place] [address],[address], [place], [address], [facility] 04/22/2019 12:21:22 03/15/20 19 Allergy Injections completed Lizett Soares [place] [facility] 03/15/2019 12:48:29 02/11/20 19 Allergy Injections completed Lizett Jorjecke [place] [facility] [place] 02/10/2019 12:55:04 01/14/20 19 Allergy Injections completed Malu Weems [place] [facility] 01/13/2019 12:30:15 12/20/19 19 Allergy Injections completed Tasha Veronica [place] [facility] 12/20/2018 14:21:42 11/24/19 19 Allergy Injections completed Lizett Jorjecke [place] [facility] 11/24/2018 11:18:52 10/22/20 18 Allergy Injections completed Christi Hendricks [place] [facility] 10/22/2018 11:14:13 09/21/20 18 Allergy Injections completed Christi Hendricks [place] [facility] 09/21/2018 11:23:31 08/26/20 18 Allergy Injections completed Lizett Jorjecke [facility] 08/26/2018 10:01:23 07/22/20 18 Allergy Injections completed Tasha Veronica [place] [facility] 07/22/2018 10:08:53 06/17/20 18 Allergy Injections completed Brittany Coe MD [address] [place] [address],[address], [place], [address], [facility] 06/17/2018 13:37:40 05/12/20 18 Food Skin Test (A/I) completed Brittany Coe MD [address] [place] [address],[address], [place], [address], [facility] 05/12/2018 09:38:35 05/12/20 18 Supervised oral food challenge completed Brittany Coe MD [address] [place] [address],[address], [place], [address], [facility] 05/12/2018 12:17:57 05/12/20 18 Allergy Injections completed Brittany Coe MD [address] [place] [address],[address], [place], [address], [facility] 05/12/2018 12:19:18 04/12/20 18 Food Skin Test (A/I) completed MD Kay Castillo [facility],[address], [place], [address], [facility] 04/12/2018 12:10:11 04/12/20 18 Supervised oral food challenge completed [facility],[address], [place], [address], [facility] 04/12/2018 12:10:13 04/12/20 18 Allergy Injections completed [facility],[address], [place], [address], [facility] 04/12/2018 14:28:47 04/05/20 18 Food Skin Test (A/I) completed [facility],[address], [place], [address], [facility] 04/05/2018 13:35:02 04/05/20 18 Supervised oral food challenge completed [facility],[address], [place], [address], [facility] 04/05/2018 13:35:05 03/18/20 18 Allergy Injections completed Lizett Soares [facility] 03/18/2018 16:17:45 02/12/20 18 Allergy Injections completed Christi Hendricks [facility] 02/11/2018 16:13:50 01/08/20 18 Allergy Injections completed Christi Eladio [facility] 01/07/2018 16:08:44 12/18/19 18 Food Skin Test (A/I) completed MD Kay Castillo [facility],[address], [place], [address], [facility] 12/18/2017 10:15:36 12/18/19 18 Supervised oral food challenge completed MD Kay Castillo [facility],[address], [place], [address], [facility] 12/18/2017 10:15:37 12/10/19 18 Allergy Injections completed Christi Leivaa [facility] 12/10/2017 16:47:11 11/11/19 18 Allergy Injections Pg. B completed Negar lemon [facility] 11/11/2017 17:31:27 10/15/20 17 Allergy Injections Pg. B completed Lizett Soares [facility] 10/15/2017 17:07:18 09/28/20 17 Food Skin Test (A/I) completed [facility],[address], [place], [address], [facility] 09/28/2017 15:47:17 09/17/20 17 Allergy Injections Pg. B completed Christi Hendricks [facility] 09/17/2017 16:12:18 08/31/20 17 Allergy Injections Pg. B completed Lizett Soares [facility] 08/31/2017 16:11:29 08/10/20 17 Allergy Injections Pg. B completed Tasha Velardel [facility] 08/10/2017 14:37:00 07/20/20 17 Allergy Injections Pg. B completed Lizett Soares [facility] 07/20/2017 16:44:59 07/08/20 17 Allergy Injections Pg. B completed Lizett Soares [facility] 07/08/2017 16:38:57 06/25/20 17 Allergy Injections Pg. B completed Lizett Soares [facility] 06/25/2017 16:10:16 06/17/20 17 Food Skin Test (A/I) completed MD Kay Castillo [facility],[address], [place], [address], [facility] 06/17/2017 11:53:48 06/17/20 17 Supervised oral food challenge completed Brittany Coe MD [address] [place] [address],[address], [place], [address], [facility] 06/17/2017 11:53:51 06/11/20 17 Allergy Injections Pg. B completed Christi Hendricks [facility] 06/11/2017 15:50:46 06/04/20 17 Allergy Injections Pg. B completed Christi Hendricks [facility] 06/04/2017 16:28:42 05/27/20 17 Allergy Injections Pg. B completed Lizettshanice Recinoscke [facility] 05/27/2017 16:34:35 05/18/20 17 Allergy Injections Pg. B completed Christi Hendricks [facility] 05/18/2017 13:56:45 05/06/20 17 Allergy Injections Pg. B completed Lizett Recinoscke [facility] 05/06/2017 13:13:43 04/29/20 17 Allergy Injections Pg. B completed Tasha Martin [facility] 05/26/2017 13:11:32 04/07/20 17 Food Skin Test (A/I) completed Brittany Coe MD [address] [place] [address],[address], [place], [address], [facility] 04/07/2017 14:44:03 04/07/20 17 Supervised oral food challenge completed Brittany Coe MD [address] [place] [address],[address], [place], [address], [facility] 04/07/2017 14:43:59 04/07/20 17 Allergy Injections [place] [address] [place] [address],[address], [place], [address], [facility] 04/07/2017 14:48:14 03/31/20 17 Allergy Injections Pg. B completed Geneva Goncalves [facility] 04/03/2017 10:05:06 03/25/20 17 Allergy Injections Pg. B completed Christi Hendricks [facility] 03/25/2017 16:09:50 03/19/20 17 Allergy Injections Pg. B completed Christi Hendricks [place] [facility] 03/19/2017 16:34:11 03/12/20 17 Allergy Injections Pg. B completed Lizett Jorjedelmi [place] [facility] 03/12/2017 16:17:15 03/05/20 17 Allergy Injections Pg. B completed Tasha Veronica [place] [facility] 03/05/2017 16:45:30 02/27/20 17 Allergy Injections Pg. B completed Christi Hendricks [place] [facility] 02/26/2017 16:29:14 02/20/20 17 Allergy Injections Pg. B completed Christi Hendricks [place] [facility] 02/19/2017 16:41:44 02/13/20 17 Allergy Injections Pg. B completed Christi Hendricks [place] [facility] 02/12/2017 16:13:21 02/06/20 17 Allergy Injections Pg. B completed Christi Hendricks [facility] 02/05/2017 16:41:33 02/04/20 17 Food Skin Test (A/I) completed Brittany Coe MD [address] [facility],[address], [place], [address], [facility] 02/03/2017 11:34:35 02/04/20 17 Supervised oral food challenge completed Brittany Coe MD [address] [facility],[address], [place], [address], [facility] [facility] 02/03/2017 11:34:37 01/29/20 17 Allergy Injections Pg. B completed Christi Hendricks [facility] 01/28/2017 16:13:19 01/23/20 17 Allergy Injections Pg. B completed Georgina Chapman [facility] 01/22/2017 16:46:58 01/09/20 17 Allergy Injections Pg. B completed Georgina Chapman [facility] 01/08/2017 16:45:20 01/02/20 17 Allergy Injections Pg. B completed Georgina Chapman [facility] 01/02/2017 09:38:00 12/25/19 17 Allergy Injections Pg. B completed Georgina Chapman [facility] 12/25/2016 16:46:04 12/18/19 17 Allergy Injections Pg. B completed Lizett Soares [facility] 12/18/2016 16:39:33 12/09/19 17 Supervised oral food challenge completed Brittany Coe MD [address] [facility],[address], [place], [address], [facility] 12/09/2016 10:00:02 12/09/19 17 Allergy Injections Pg. B completed Lizett Soares [facility] 12/09/2016 12:43:10 12/04/19 17 Allergy Injections Pg. B completed Georgina Chapman [facility] 12/04/2016 17:03:09 11/27/19 17 Allergy Injections Pg. B completed Georgina Chapman [facility] 12/01/2016 09:26:20 11/19/19 17 Allergy Injections Pg. B completed Lizett Soares [facility] 11/19/2016 16:50:17 11/12/19 17 Allergy Injections Pg. B completed Georgina Chapman [facility] 11/14/2016 12:25:20 11/04/19 17 Supervised oral food challenge completed Brittany Coe MD [address] [facility],[address], [place], [address], [facility] 11/04/2016 11:08:26 11/04/19 17 Allergy Injections Pg. B completed Lizett Soares [facility] 11/04/2016 13:41:39 10/23/20 16 Allergy Injections Pg. B completed Christi Hendricks [facility] 10/23/2016 13:06:57 10/16/20 16 Allergy Injections Pg. B completed Anali Chavez MD [address] [facility],[address], [place], [address], [facility] 10/19/2016 18:47:50 10/09/20 16 Allergy Injections Pg. B completed Lizett Soares [facility] 10/09/2016 16:51:20 09/30/20 16 Allergy Injections Pg. B completed Georgina Chapman [facility] 09/30/2016 16:42:51 09/24/20 16 Allergy Injections Pg. B completed Lizett Alvesshay [facility] 09/24/2016 12:39:48 09/18/20 16 Allergy Injections Pg. B completed Georgina Adela [facility] 09/18/2016 17:01:08 09/10/20 16 Allergy Injections Pg. B completed Christi Hendricks [facility] 09/10/2016 16:50:55 09/05/20 16 Food Skin Test (A/I) completed Brittany Coe MD [address] [facility],[address], [place], [address] 09/05/2016 15:34:21 09/05/20 16 Allergy Injections Pg. B completed Christi Hendricks [facility] 09/05/2016 14:43:14 08/28/20 16 Allergy Injections Pg. B completed Tasha Velardel [facility] 08/28/2016 16:41:56 08/20/20 16 Allergy Injections Pg. B completed Christi Hendricks [facility] 08/20/2016 16:51:40 08/14/20 16 Allergy Injections Pg. B completed Georgina Chapman [facility] 08/14/2016 16:35:12 08/07/20 16 Allergy Injections Pg. B completed Georgina Chapman [facility] 08/07/2016 16:53:11 07/31/20 16 Allergy Injections Pg. B completed Georgina Chapman [facility] 07/31/2016 11:22:13 07/24/20 16 Allergy Injections Pg. B completed Christinas Leivaa [facility] 07/24/2016 16:38:12 07/17/20 16 Allergy Injections Pg. B completed Tasha Veronica [place] [facility] 07/17/2016 16:43:36 07/09/20 16 Allergy Injections Pg. B completed Christi Hendricks [place] [facility] 07/09/2016 16:49:34 05/02/20 16 Full Skin Test Panel completed Brittany Coe MD [address] [facility],[address], [place], [address], [facility] 05/02/2016 13:44:55 05/02/20 16 Food Skin Test (A/I) completed Brittany Coe MD [facility] [facility],[address], [place], [address], [facility] 05/02/2016 13:44:55 05/02/20 16 Spirometry PRE/POST completed Christi Hendricks [facility] 05/02/2016 12:54:54 02/26/20 16 Food Skin Test (A/I) completed Brittany Coe MD [address] [place] [address],[address], [place], [address], [facility] 02/26/2016 12:40:08 02/26/20 16 Supervised oral food challenge completed Brittany Coe MD [address] [place] [address],[address], [place], [address], [facility] 02/26/2016 12:40:08 09/12/20 15 Food Skin Test (A/I) [facility],[address], [place], [address], [facility] 09/12/2015 13:28:20 09/12/20 15 Spirometry PRE/POST completed [facility],[address], [place], [address], [facility] 09/12/2015 13:28:20 05/18/20 15 Spirometry PRE Only completed Geneva Goncalves [facility] 05/18/2015 09:54:13 02/10/20 15 Spirometry PRE Only completed Tasha Martin [facility] 02/09/2015 11:13:48 10/17/20 14 Food Skin Test (A/I) completed [facility],[address], [place], [address], [facility] 10/17/2014 13:20:03 None reported [facility] 09:36:05 Imaging Results None recorded. Procedure Notes None recorded. Medical Equipment None Reported. Allergies Allergen ID Allergen Name Allergen Category Reaction Reaction Severity Criticality Documentation Date Start Date Code Code System Note Provider Name and Address Organization Details Recorded Time 733071 avocado allergeni c extract food Not available Not available Not available 09/12/2015 22772 2 RxNorm Christi Hendricks [facility] 5 12:30:59 637732 banana extract food,medi cation Not available Not available Not available 09/12/2015 14752 9 RxNorm Christi Hendricks [facility] 7 14:47:41 725822 melon extract food Not available Not available Not available 05/02/2016 91426 10 RxNorm water melon chall enge passe d Crystal Geurin [facility] 7 09:44:23 561668 kiwi fruit extract food Not available Not available Not available 05/02/2016 52713 01 RxNorm Tasha Veronica [facility] 8 11:23:46 45772 egg extract food,medi cation anaphylax is Not available Not available 10/17/2014 34331 15 RxNorm Does NOT xin ate in baked goods Christi Leivaa [facility] 4 12:48:29 58057 tree nut food Not available Not available Not available 10/17/2014 avoid s cashe w and pista yared Christi Hendricks [facility] 0 12:02:25 35305 uracil mustard medicatio n Not available Not available Not available 10/17/[address] Christi Hendricks [facility] 0 12:02:07 Medications Name Sig Start Date Stop Date Status Note LastModified by Organization Details LastModified Time Allergy injection s use as directed per schedule 10/03 completed A: Trees ; B: Grasses, Dust mites ; C: Weeds (S: 9/7/16) Not Available Not Available Not Available fluoxetin [...] Not Avai lable Nasonex 50 mcg/actua tion Nisula Nisula 1 spray every day by intranas al [...] completed Not Available Not Available Not Available [facility] USE DIRECTED . active Not Available [...] Last Updated DateTime 08/21/2022 162 cm Nohemy Newsome [facility] 08/21/2022 09:02:33 Date Recorded Body height Body mass index (BMI) Body mass index (BMI) Percentile per age and sex Body weight Provider Name and Address Organization Details Last Updated DateTime 10/02/2022 162 cm 26.1 kg/m2 86 % 64298 g Dahiana Santoyo [facility] 10/02/2022 12:24:28 Date Recorded Body height Heart rate Body mass index (BMI) Percentile per age and sex Body mass index (BMI) Body weight Systolic blood pressure Diastolic blood pressure Provider Name and Address Organization Details Last Updated DateTime 162 cm 93 /min 87 % 26.4 kg/m2 54508 g 128 mm[Hg] 81 mm[Hg] Norma [email or web address] [facility] 2 14:12:57 Date Recorded Body height Provider Name an d Address Organization Details Last Updated DateTime 12/05/2022 162 cm Nohemy Newsome [facility] 12/05/2022 17:02:05 Social History Question Answer Notes LastModified by Organizat ion Details LastModified Time Tobacco Smoking Status Never Smoker Norma SusyDEEPAK ruben [facility] 03/07/2022 12:44:00 Do You Or Have You Ever Used E-cigarettes Or Vape? Never Used Electronic Cigarettes [email or web address] Information not available 03/15/2021 What Is Your Home Situation? 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 Mother: Accounting [email or web address] Information not available 03/15/2021 Pets: Indoor Cat(s) Yes 6 Cats [email or web address] Information not available 10/17/2014 Pets: Indoor Dog(s) No Information not available 12/09/2016 Pets: Outdoor Cat(s) No Information not available 12/09/2016 Pets: Outdoor Dog(s) No Information not available 12/09/2016 Pets: Indoor/outdoor Cat(s) No Information not available 12/09/2016 Pets: Indoor/outdoor Dog(s) No Information not available 12/09/2016 Tobacco Status Never User [email or web address] Darbyr denis not available 06/09/2019 Have You Had A Fever And/or Symptoms Of A Lower Respiratory Illness (cough, Difficulty Breathing, Etc)? No [email or web address] Information not available 02/23/2020 Have You Had A COVID-19 Vaccine In The Last 7 Days? No [email or web address] Information not available 01/24/2021 Have You Had Any Of These Symptoms: Chills, Headache, Fatigue, Muscle Or Body Aches, Sore Throat, New Loss Of Taste Or Smell, Nausea Or Vomiting, Or Diarrhea? No Information not available 01/24/2021 In The Past 10 Days, Have You Been Told You May Have COVID-19 Or Have Been Tested For COVID-19? No [email or web address] Information not available 03/07/2022 What Was The Date Of Your Most Recent Tobacco Screening? 12/05/2022 Information not available 12/05/2022 What Is The [...] Notes LastModified by Organization Details LastModified Time Father Asthma [email or web address] Not available 11/2021 09:58:36 Father Seasonal allergy [email or web address] Not available 2021 09:58:36 Father Hypertensive disorder [email or web address] Not available 2020 12:00:25 Father Hypertensive disorder [email or web address] Not available 12/2022 17:01:22 Maternal Grandmother Seasonal allergy Took allerg y shots for years. [email or web address] Not available 05/02/2022 09:58:36 Maternal Grandmother Hypertensive disorder [email or web address] Not available 2020 12:00:25 Maternal Grandmother Hypertensive disorder [email or web address] Not available 12/2022 17:01:22 Maternal Grandfather Hypertensive disorder [email or web address] Not available 2020 12:00:25 Maternal Grandfather Hypertensive disorder [email or web address] Not available 12/2022 17:01:22 Medical History Condition Response other neurologic issue N multiple sclerosis N HIV or AIDS N congenital heart disease N menstrual cramps Y hives N asthma Y allergies Y heart arrhythmia N ulcers N acid reflux/GERD N neurologic disease N diabetes mellitus N musculoskeletal disease N head trauma N sleep apnea N migraines N other respiratory issue N rheumatoid arthritis N hospital admission other than N deep vein thrombosis N other [employer] Supervisor issue N sleep disorder N headaches N other psychiatric issue N anxiety disorder Y back pain N menstrual problems Y arthritis N alcohol abuse N other sleep issue N other gastrointestinal issue N ADD or ADHD N chronic pain N depression Y high blood pressure N bladder problems N osteoporosis N kidney disease N other skin disorder issue N liver disease N heart problems N heart disease N defects or inherited disease N other pediatric issue N chronic fatigue syndrome N osteoarthritis N other rheumatologic issue N immune system disorder N pulmonary embolism N palpitations N congenital anomalies N lupus N back problems N ovarian cyst N other hematology/cancer issue N gastrointestinal disease N speech delay N vision or eye problems N bleeding disorder N skin conditions N other endocrine issue N hospitalization N seizures N tobacco abuse N kidney stones N developmental or behavioral disorder N eczema N heart murmur N other N anemia N other cardiovascular issue N high cholesterol N bedwetting N constipation N cancer N diarrhea N Chest pain N other genitourinary issue N blood diseases N other HEENT issue N developmental delay N heart attack ([place]) N blood clots N other musculoskeletal issue [...] Name and Address Organization Details Recorded Time Influenza, split virus, quadrivalent, preservative 09/05/2021 completed De[place], [place] 02/26/2022 09:30:00 varicella 06/17/2018 completed Not Available [facility] 02:31:38 Influenza, split virus, quadrivalent, PF 09/22/2018 completed Not Available [facility] 11/19/2019 02:23:09 Influenza, split virus, quadrivalent, PF 08/15/2019 completed Not Available [facility] 11/19/2019 02:18:29 MMR 03/20/2015 completed Not Available [facility] 02:21:05 Past Encounters Encounter ID Performer Location Encounter Start Date Encounter Closed Date Diagnosis/Indication Diagnosis SNOMED-CT Code Diagnosis ICD10 Code [id number] Brittany Coe MD [facility] T [address] [facility] [address] [place] [address] 10/17/2014 11:36:54 10/17/2014 13:27:24 Allergic rhinitis 44248600 Asthma 954822131 Dermatitis caused by ingested food 876387666 [id number] [facility] T [address] [facility] [address] [place] [address] 02/09/2015 09:55:04 02/09/2015 11:15:46 Allergic rhinitis 75719215 Asthma 866574786 Dermatitis caused by ingested food 494947877 [id number] Tasha Veronica [facility] [address] [facility] [address] [place] [address] 03/20/2015 09:52:31 03/20/2015 11:30:54 Dermatitis caused by ingested food 490915989 [id number] [facility] T 200 [address] [facility] [address] [place] [address] 05/18/2015 09:26:05 05/18/2015 10:35:27 Dermatitis caused by ingested food 295754155 Asthma 787343500 Allergic rhinitis 036474 04 [id number] Brittany Coe MD [facility] ALGY[facility]STRC T [address] [facility] [address] [place] [address] 8 09/12/2015 11:59:13 09/12/2015 13:28:41 Dermatitis caused by ingested food 694941499 Z91.018 Asthma 312318723 J45.90 9 Allergic rhinitis 299445 04 J30.9 [id number] Brittany Coe MD SF[facility]PEDI ALGY_STRC T [address] [facility] [address] [place] [address] 8 02/26/2016 10:54:28 02/26/2016 14:42:58 Dermatitis caused by ingested food 591132376 L27.2 Asthma 676494211 J45.90 9 Allergic rhinitis 767925 04 J30.9 [id number] Brittany Coe MD [facility]STRC T [address] [place] [address] 8 05/02/2016 11:55:16 05/02/2016 14:25:08 Dermatitis caused by ingested food 899641284 L27.2 Asthma 670084179 J45.30 Allergic rhinitis 594914 04 J30.1 [id number] Christi Hendricks [facility] T [address] [facility] [address] [place] [address] 8 07/09/2016 16:20:02 07/09/2016 16:46:56 Allergic rhinitis 06935951 J30.1 [id number] Tasha Martin [facility] T [address] [facility] [address] [place] [address] 8 07/17/2016 16:09:03 07/17/2016 16:44:14 Allergic rhinitis 95978703 J30.1 [id number] Christi Hendricks [facility] T [address] [facility] [address] [place] [address] 8 07/24/2016 16:05:31 07/24/2016 16:38:30 Allergic rhinitis 21171851 J30.1 [id number] Christi Hendricks [facility] T [address] [facility] [address] [place] [address] 8 07/31/2016 10:47:32 07/31/2016 11:22:21 Allergic rhinitis 45878855 J30.1 J30.89 [id number] Tasha Veronica [facility] T [address] [facility] [address] [place] [address] 8 08/07/2016 16:16:02 08/07/2016 16:52:48 Allergic rhinitis 25338626 J30.1 J30.89 [id number] Tasha Veronica [facility] T [address] [place] [address] 8 08/14/2016 16:06:32 08/14/2016 16:35:21 Allergic rhinitis 84926565 J30.1 J30.89 [id number] Christi Hendricks [facility] T [address] [facility] [address] [place] [address] 8 08/20/2016 16:00:31 08/20/2016 16:35:41 Allergic rhinitis 10549533 J30.1 Dermatitis caused by ingested food 103263750 L27.2 [id number] Geneva Goncalves [facility] T [address] [facility] [address] [place] [address] 8 08/28/2016 16:13:32 08/28/2016 17:23:25 Allergic rhinitis 66248330 J30.1 J30.89 [id number] Brittany Coe MD [facility]STR[facility] T [address] [facility] [address] [place] [address] 8 09/05/2016 14:02:53 09/05/2016 15:28:09 Dermatitis caused by ingested food 105447876 L27.2 Asthma 879177192 J45.30 Allergic rhinitis 662389 04 J30.1 [id number] Christi Hendricks [facility] T [address] [facility] [address] [place] [address] 8 09/10/2016 16:04:02 09/10/2016 16:51:15 Allergic rhinitis 23925373 J30.1 J30.89 [id number] Tasha Veronica [facility]STR[facility] T 200 [address] [facility] [address] [place] [address] 8 09/18/2016 16:09:31 09/22/2016 13:28:14 Allergic rhinitis 68803631 J30.1 J30.89 [id number] Milton Camejo MD [facility]STR[facility] T [address] [facility] [address] [place] [address] 8 09/24/2016 12:05:31 09/30/2016 13:05:56 Allergic rhinitis 51396360 J30.1 J30.89 [id number] Tasha Veronica [facility]STR[facility] T [address] [place] [address] 8 09/30/2016 16:07:31 10/01/2016 09:42:38 Allergic rhinitis 06150107 J30.1 J30.89 [id number] Tasha Veronica [facility]STR[facility] T [address] [place] [address] 8 10/09/2016 15:59:32 10/14/2016 16:01:59 Allergic rhinitis 06990406 J30.1 J30.89 [id number] Anali Chavez MD [facility]STR[facility] T [address] [facility] [address] [place] [address] 8 10/16/2016 15:59:57 10/16/2016 16:47:00 Allergic rhinitis 96318012 J30.1 J30.89 [id number] Tasha Veronica [facility] T [address] [facility] [address] [place] [address] 8 10/23/2016 12:07:27 10/23/2016 13:59:12 Allergic rhinitis 34461336 J30.1 J30.89 [id number] Brittany Coe MD [facility]STR[facility] T [address] [facility] [address] [place] [address] 8 11/04/2016 10:56:09 11/04/2016 13:49:00 Dermatitis caused by ingested food 741369377 L27.2 Asthma 295407650 J45.30 Allergic rhinitis 937652 04 J30.1 [id number] Tasha Veronica [facility] ALGY_STRC T 200 [address] [facility] [address] [place] [address] 8 11/12/2016 14:22:30 11/19/2016 12:01:35 Allergic rhinitis 82335821 J30.1 [id number] Tasha Veronica [facility] AL[facility]STRC T 200 [address] [facility] [address] [place] [address] 8 11/19/2016 16:37:41 11/19/2016 17:26:19 Allergic rhinitis 09902093 J30.1 J30.89 [id number] Tasha Veronica [facility] T [address] [facility] [address] [place] [address] 8 11/27/2016 16:00:31 12/02/2016 11:25:11 Allergic rhinitis 72453818 J30.1 J30.89 [id number] Georgina Chapman [facility] [facility] [address] [place] [address] 8 12/04/2016 16:31:12 12/04/2016 17:03:36 Allergic rhinitis 66259407 J30.1 J30.89 [id number] Brittany Coe MD [facility]I ALGY_STRC T 200 [address] [facility] [address] [place] [address] 8 12/09/2016 09:31:43 12/09/2016 16:53:09 Allergic rhinitis 52537147 J30.1 Dermatitis caused by ingested food 991186421 L27.2 Asthma 759871960 J45.30 [id number] Georgina Chapman [facility] AL[facility]STRC T 200 [address] Kerri Prakash [facility] [address] [place] [address] 8 12/18/2016 16:26:34 12/18/2016 16:59:35 Allergic rhinitis 20406267 J30.1 J30.89 [id number] Georgina Chapman [facility] AL[facility]STRC T 200 [address] Kerri Prakash [facility] [address] [place] [address] 8 12/25/2016 16:03:52 12/25/2016 16:55:11 Allergic rhinitis 04163341 J30.1 J30.89 [id number] Georgina Chapman [facility] ALGY[facility]STRC T 200 [address] Kerri Prakash [facility] [address] [place] [address] 8 01/01/2017 16:14:38 01/02/2017 09:47:39 Allergic rhinitis 80001582 J30.1 J30.89 [id number] Georgina Chapman [facility]PEDI ALGY_STRC T 200 [address] Prakash [facility] [address] [place] [address] 8 01/08/2017 16:25:58 01/08/2017 16:57:57 Allergic rhinitis 65582082 J30.1 J30.89 [id number] Georgina Chapman [facility] ALGY[facility]STRC T 200 [address] [facility] [address] [place] [address] 8 01/22/2017 16:09:49 01/22/2017 16:50:03 Allergic rhinitis 54440425 J30.1 J30.89 [id number] Christi Hendricks [facility] [facility] [address] [place] [address] 8 01/28/2017 16:06:47 01/28/2017 16:45:53 Allergic rhinitis 76187759 J30.1 J30.89 [id number] Brittany Coe MD [facility]_PEDI ALGY_STRC T 200 [address] [facility] [address] [place] [address] 8 02/03/2017 09:34:56 02/03/2017 13:26:00 Dermatitis caused by ingested food 484604144 L27.2 Asthma 508246836 J45.30 Allergic rhinitis 911182 04 J30.1 [id number] Christi Hendricks [facility]STR[facility] T [address] [facility] [address] [place] [address] 8 02/05/2017 16:02:29 02/05/2017 16:42:01 Allergic rhinitis 95027066 J30.1 J30.89 [id number] Christi Hendricks [facility] [facility] [address] [place] [address] 8 02/12/2017 16:12:09 02/12/2017 16:39:13 Allergic rhinitis 88171778 J30.1 J30.89 [id number] Christi Hendricks [facility] AL[facility]STRC T [address] [facility] [address] [place] [address] 8 02/19/2017 16:35:50 02/19/2017 16:42:20 Allergic rhinitis 23940452 J30.1 J30.89 [id number] Christi Hendricks [facility] ALGY[facility]STRC T [address] [facility] [address] [place] [address] 8 02/26/2017 16:03:07 02/26/2017 16:29:44 Allergic rhinitis 21570900 J30.1 J30.89 [id number] Tasha Veronica [facility] ALGY[facility]STRC T [address] [facility] [address] [place] [address] 8 03/05/2017 16:05:32 03/05/2017 17:02:06 Allergic rhinitis 90867654 J30.1 J30.89 [id number] Tasha Veronica [facility] ALGY_STRC T [address] [facility] [address] [place] [address] 8 03/12/2017 16:12:06 03/12/2017 16:59:27 Allergic rhinitis 26136714 J30.1 J30.89 [id number] Christi Hendricks [facility] AL[facility]STRC T [address] [facility] [address] [place] [address] 8 03/19/2017 15:58:37 03/19/2017 16:34:44 Allergic rhinitis 40978880 J30.1 J30.89 [id number] Milton Camejo MD [facility]PEDI ALGY_STRC T [address] [facility] [address] [place] [address] 8 03/25/2017 16:06:43 03/25/2017 16:52:16 Allergic rhinitis 00143554 J30.1 J30.89 [id number] Geneva Goncalves [facility]STR[facility] T [address] [facility] [address] [place] [address] 8 03/31/2017 16:14:34 04/06/2017 20:00:47 Allergic rhinitis 25903028 J30.1 J30.89 [id number] Brittany Coe MD [facility]PEDI ALGY_STRC T [address] [facility] [address] [place] [address] 8 04/07/2017 11:23:29 04/07/2017 16:14:10 Dermatitis caused by ingested food 988593136 L27.2 Asthma 854589008 J45.30 Allergic rhinitis 115948 04 J30.1 [id number] Milton Camejo MD [facility]PEDI ALGY_STRC T [address] [place] [address] 8 05/06/2017 13:12:14 05/07/2017 16:45:58 Allergic rhinitis 66079515 J30.1 J30.89 [id number] Christi Eladio [facility]PED[facility] ALGY_STRC T [address] [place] [address] 8 05/18/2017 13:42:52 05/18/2017 16:14:03 Allergic rhinitis 74006271 J30.1 J30.89 [id number] Tasha Veronica [facility] ALGY_STRC T [address] [place] [address] 8 04/29/2017 12:34:07 04/30/2017 09:22:46 Dermatitis caused by ingested food 583746142 L27.2 [id number] Tasha Veronica [facility]I ALGY_STRC T [address] [place] [address] 8 05/27/2017 16:33:18 05/27/2017 17:17:28 Allergic rhinitis 90879903 J30.1 J30.89 [id number] Christi Hendricks [facility]I ALGY[facility]STRC T 200 [address] [facility] [address] [place] [address] 06/04/2017 16:27:37 06/04/2017 16:59:12 Allergic rhinitis 11554833 J30.1 J30.89 [id number] Christi Hendricks SFC_PEDI ALGY_STRC T 200 1301 [facility] Bret 200 [place] [address] 06/11/2017 15:36:54 06/11/2017 15:51:13 Allergic rhinitis [id number] J30.1 J30.89 [id number] Brittany Coe MD SFC_PEDI ALGY_[facility] 701 [facility] Q [address] [place] [address] 06/17/2017 10:52:26 06/17/2017 14:47:09 Dermatitis caused by ingested food 057738997 L27.2 [id number] Tasha Veronica SFC_PEDI ALGY_STRC T [address] [facility] 200 [place] [address] 8 06/25/2017 16:08:09 06/25/2017 16:38:56 Allergic rhinitis 12833124 J30.1 J30.89 [id number] Milton Camejo MD SFC_PEDI ALGY_STRC T [address] [facility] 200 [place] [address] 07/08/2017 16:01:12 07/09/2017 12:36:42 Allergic rhinitis 89259784 J30.1 J30.89 [id number] Christi Leivaa SFC_PEDI ALGY_STRC T [address] [facility] 200 [place] [address] 07/20/2017 16:38:21 07/22/2017 13:19:01 Allergic rhinitis 95765987 J30.1 J30.89 [id number] Tasha Veronica SFC_PEDI ALGY_STRC T [address] [facility] 200 [place] [address] 8 08/10/2017 14:11:48 08/10/2017 14:20:00 Allergic rhinitis 00668118 J30.1 J30.89 [id number] Tasha Veronica SFC_PEDI ALGY_STRC T 200 [address] [facility] Bret [address] [place] [address] 08/31/2017 16:10:04 09/01/2017 12:28:02 Allergic rhinitis 24674777 J30.1 J30.89 [id number] Christi Hendricks SFC_PEDI ALGY_STRC T 200 1301 [facility] Bret 200 [place] [address] 09/17/2017 16:11:17 09/18/2017 12:58:45 Allergic rhinitis 01354551 J30.1 J30.89 J30.81 [id number] Brittany Coe MD [facility]_PEDI ALGY_[place] [address] S. [facility], Bret Q [address] [place] [address] 09/28/2017 14:37:37 09/28/2017 16:39:09 Dermatitis caused by ingested food 932896322 L27.2 Asthma 591017286 J45.90 9 Allergic rhinitis 600550 04 J30.1 [id number] Tasha Veronica SFC_PEDI ALGY_STRC T 200 1301 [facility] Bret 200 [place] [address] 10/15/2017 17:04:21 10/16/2017 12:07:34 Allergic rhinitis 53747176 J30.1 J30.89 J30.81 [id number] Tasha Veronica SFC_PEDI ALGY_STRC T [address] [facility] 200 [place] [address] 11/11/2017 14:45:32 11/12/2017 09:06:02 Allergic rhinitis 25071856 J30.1 J30.89 [id number] Christi Hendricks SFC_PEDI ALGY_STRC T 200 1301 [facility] Bert 200 [place] [address] 12/10/2017 16:05:44 12/11/2017 18:56:15 Allergic rhinitis 21752847 J30.1 J30.89 J30.81 [id number] Brittany Coe MD [facility]_PEDI ALGY_[facility] 70 S. [facility], Bret Q [address] [place] [address] 12/18/2017 09:17:56 12/18/2017 13:26:18 Dermatitis caused by ingested food 246554471 L27.2 Asthma 635592683 J45.90 9 Allergic rhinitis 651857 04 J30.1 [id number] Christi Hendricks SFC_PEDI ALGY_STRC T 200 1301 [facility] Bret 200 [place] [address] 01/07/2018 16:08:03 01/07/2018 17:13:10 Allergic rhinitis 44406681 J30.1 J30.89 [id number] ALINE Alaniz Jr zCLSD_TCP A_FM_DAVI S 5301-B [facility] Bret [address] [place] [address] 02/01/2018 17:02:12 02/01/2018 18:25:16 Pain in throat 737804946 R07.0 Allergic rhinitis 565782 04 J30.9 [id number] Christi Hendricks [facility]_PEDI ALGY_STRC T 200 1301 [facility] Bret [address] [place] [address] 02/11/2018 16:08:28 02/11/2018 16:59:00 Allergic rhinitis 73452496 J30.1 J30.89 [id number] MASSIEL PAYNE NP SFC_PEDI ADOL MED_STRCT 304 1301 [facility],BRET [address] [place] [address] 03/01/2018 16:00:42 03/01/2018 17:36:29 Premenstrual dysphoric disorder 696160 F32.81 Primary dysmenorrhea 657 09720 N94.4 Acne vulgaris 16710223 L 70.0 Overweight 935916048 E66 .3 [id number] Tasha Veronica SFC_PEDI ALGY_STRC T 200 1301 [facility] Bret 200 [place] [address] 03/18/2018 16:04:51 03/22/2018 16:16:39 Allergic rhinitis 34809195 J30.1 J30.89 [id number] Brittany Coe MD SFC_PEDI ALGY_[facility] 701 [facility] Bret Q [address] [place] [address] 04/05/2018 10:46:06 04/05/2018 13:48:33 Dermatitis caused by ingested food 634383535 L27.2 [id number] Brittany Coe MD [facility]_PEDI ALGY_[place] [address] [address] 04/12/2018 10:50:47 04/12/2018 15:02:24 Dermatitis caused by ingested food 122754364 L27.2 Asthma 261501635 J45.90 9 Allergic rhinitis 777838 04 J30.1 [id number] Judith Scales [facility]_ PEDI ADOL MED_[facility] [address] [address] 04/14/2018 14:05:14 04/14/2018 15:57:37 Premenstrual dysphoric disorder 348295 F32.81 Acne vulgaris 70078922 L 70.0 Primary dysmenorrhea 657 94408 N94.4 [facility] 756281420 E66 .3 [id number] Brittany Coe MD [facility]_PEDI ALGY_[place] [address] [address] 05/12/2018 09:26:22 05/12/2018 12:27:52 Dermatitis caused by ingested food 372851796 L27.2 Asthma 432332550 J45.90 9 Allergic rhinitis 094939 04 J30.1 [id number] Judith Watsone [facility]_ PEDI ADOL MED_[facility] [address] [address] 06/16/2018 11:02:27 06/16/2018 11:48:50 Premenstrual dysphoric disorder 322587 F32.81 Acne vulgaris 49565052 L 70.0 Primary dysmenorrhea 657 27388 N94.4 [id number] Brittany Coe MD [facility]_PEDI ALGY_[place] [address] [address] 06/17/2018 11:59:18 06/17/2018 14:10:51 Dermatitis caused by ingested food 443834019 L27.2 [id number] Tasha Veronica SFC_PEDI ALGY_STRC T [address] [facility] 200 [place] [address] 07/22/2018 10:00:01 07/22/2018 15:36:31 Allergic rhinitis 83693536 J30.1 J30.89 [id number] Tasha Veronica SFC_PEDI ALGY_STRC T [address] [facility] 200 [place] [address] 08/26/2018 09:44:18 08/27/2018 09:13:37 Allergic rhinitis 61499181 J30.1 J30.89 [id number] Christi Hendricks SFC_PEDI ALGY_STRC T [address] [facility] 200 [place] [address] 09/21/2018 11:06:04 09/27/2018 14:22:44 Allergic rhinitis 59632967 J30.1 J30.89 [id number] Tasha Veronica SFC_PEDI ALGY_STRC T [address] [facility] 200 [place] [address] 09/21/2018 12:02:51 09/27/2018 14:25:31 Administration of influenza vaccine 21150617 Z23 [id number] Judith Scales zFNL_SFC_ PEDI ADOL MED_[facility] 701 [facility], Bret Q [address] [place] [address] 09/22/2018 13:33:41 09/22/2018 14:27:17 Premenstrual dysphoric disorder 744963 F32.81 Acne vulgaris 54693370 L 70.0 Primary dysmenorrhea 657 82518 N94.4 [id number] Christi Hendricks SFC_PEDI ALGY_STRC T [address] [facility] 200 [place] [address] 10/22/2018 11:13:22 10/22/2018 20:07:30 Allergic rhinitis 08824227 J30.1 J30.89 [id number] Tasha Veronica SFC_PEDI ALGY_STRC T [address] [facility] 200 [place] [address] 11/24/2018 11:04:43 11/24/2018 16:48:33 Allergic rhinitis 77112505 J30.1 J30.89 [id number] Milton Camejo MD [facility]_PEDI ALGY_STRC T 200 1301 Kerri Prakash [facility] Bret 200 [place] [address] 12/20/2018 13:12:00 12/20/2018 16:14:50 Asthma 564662107 J45.909 Allergic rhinitis 415523 04 J30.1 J30.89 Allergy to drug 06117302 2 T50.905D [id number] Judith Scales SF_PEDI ADOL MED_STRCT 304 1301 Kerri Prakash [facility],BRET [address] [place] [address] 01/04/2019 16:48:35 01/04/2019 17:49:15 Primary dysmenorrhea 42785378 N94.4 Acne vulgaris 43642311 L 70.0 Premenstru al dysphoric disorder 219738 F32.81 Easy bruising 230088565 R58 [id number] Tasha Veronica [facility]_PEDI ALGY_STRC T 200 1301 Kerri Prakash [facility] Bret 200 [place] [address] 01/13/2019 12:21:47 01/13/2019 15:25:56 Allergic rhinitis 40119365 J30.1 J30.89 [id number] Tasha Veronica SFC_PEDI ALGY_STRC T 200 1301 Kerri Prakash [facility] 200 [place] [address] 02/10/2019 12:49:02 02/14/2019 12:51:33 Allergic rhinitis 47185457 J30.1 J30.89 [id number] Tasha Veronica SFC_PEDI ALGY_STRC T 200 1301 Kerri [facility] 200 [place] [address] 03/15/2019 12:30:32 03/15/2019 14:28:19 Allergic rhinitis 76674185 J30.1 J30.89 [id number] Brittany Coe MD [facility]_PEDI ALGY_[facility] [address] [place], [place] [address]y, Bret Q [address] [place] [address] 04/22/2019 11:17:39 04/22/2019 13:08:25 Asthma 845603934 J45.909 Allergic rhinitis 407939 04 J30.1 J30.89 Dermatitis caused by ingested food 081151855 L27.2 Allergy to drug 75885966 2 T50.905D [id number] Christi Hendricks SFC_PEDI ALGY_STRC T 200 1301 Kerrimisa Prakash [facility] 200 [place] [address] 05/19/2019 15:00:57 05/19/2019 15:44:14 Allergic rhinitis 54237585 J30.1 J30.89 [id number] Brittany Coe MD SFC_PEDI ALGY_[address], [facility] Q [address] [place] [address] 05/31/2019 11:17:58 05/31/2019 15:26:32 Dermatitis caused by ingested food 905185003 L27.2 Asthma 934425012 J45.90 9 Allergic rhinitis 799979 04 J30.1 J30.89 Allergy to drug 60237914 2 T50.905D [id number] Judith Scales SFC_PEDI ADOL MED_STRCT 304 1301 Kerrimisa Prakash [facility] [address] [place] [address] 06/09/2019 12:47:42 06/09/2019 13:43:30 Premenstrual dysphoric disorder 581721 F32.81 Primary dysmenorrhea 657 73650 N94.4 Acne vulgaris 32898722 L 70.0 [id number] Christi Cifuentesarra [facility]_PEDI ALGY_STRC T 200 1301 Kerri [facility] 200 [place] [address] 06/20/2019 15:00:31 06/20/2019 17:12:27 Allergic rhinitis 78051161 J30.1 J30.89 [id number] Tasha Veronica SFC_PEDI ALGY_STRC T 200 1301 Kerri [facility] 200 [place] [address] 07/21/2019 15:31:25 07/21/2019 16:11:49 Allergic rhinitis 14047720 J30.1 J30.89 [id number] Christi Hendricks [facility]_PEDI ALGY_STRC T 200 1301 Kerri Prakash [facility] Bret [address] [place] [address] 08/15/2019 11:42:15 08/15/2019 12:45:18 Allergic rhinitis 47003615 J30.1 J30.89 [id number] Tasha Veronica SFC_PEDI ALGY_STRC T 200 1301 Kerri Prakash [facility] Bret 200 [place] [address] 09/22/2019 16:01:33 09/22/2019 17:31:46 Allergic rhinitis 34521527 J30.1 J30.89 [id number] Judith Scales zFNL_SFC_ PEDI ADOL MED_[facility] 701 S [facility], Bret Q [address] [place] [address] 09/28/2019 14:09:05 09/28/2019 15:20:48 Primary dysmenorrhea 23880104 N94.4 Acne vulgaris 40199706 L 70.0 Disturbance in mood 4807 9002 R45.89 Premenstru al dysphoric disorder 834335 F32.81 [id number] Tasha Veronica SFC_PEDI ALGY_STRC T 200 1301 Kerri Prakash [facility] Bret 200 [place] [address] 10/21/2019 11:23:47 10/24/2019 19:12:15 Allergic rhinitis 17165137 J30.1 J30.89 [id number] Tasha Veronica SFC_PEDI ALGY_STRC T 200 1301 Kerri Prakash [facility] Bret 200 [place] [address] 11/22/2019 15:34:36 11/22/2019 17:43:02 Allergic rhinitis 99810388 J30.1 J30.89 [id number] Judith Scales SFC_PEDI ADOL MED_STRCT 304 1301 Kerri Prakash [facility],BRET [address] [place] [address] 12/13/2019 12:59:34 12/13/2019 13:44:46 Primary dysmenorrhea 05649123 N94.4 Acne vulgaris 07794794 L 70.0 Disturbance in mood 4807 9002 R45.89 Premenstru al dysphoric disorder 580234 F32.81 [id number] Tasha Veronica SFC_PEDI ALGY_STRC T 200 1301 Kerri Prakash [facility] Bret 200 [place] [address] 12/19/2019 10:11:48 12/19/2019 11:23:59 Allergic rhinitis 72472498 J30.1 J30.89 [id number] Tasha Veronica SFC_PEDI ALGY_STRC T 200 1301 Kerrimisa Prakash [facility] 200 [place] [address] 01/18/2020 09:26:17 01/18/2020 13:22:13 Allergic rhinitis 05090465 J30.1 J30.89 [id number] Tasha Veronica SFC_PEDI ALGY_[place] [address] S. [facility] [address] [place] [address] 02/23/2020 09:56:12 02/23/2020 10:54:48 Allergic rhinitis 45067910 J30.1 J30.89 [id number] Tasha Veronica SFC_PEDI ALGY_[place] [address] S. [facility] [address] [place] [address] 03/29/2020 09:33:39 03/29/2020 11:06:05 Allergic rhinitis 44556384 J30.1 J30.89 [id number] Judith Scales SFC_PEDI ADOL MED_STRCT 304 1301 Kerri Dwain [facility] [address] [place] [address] 04/20/2020 12:51:42 04/20/2020 13:50:50 Acne vulgaris 15490547 L70.0 Disturbance in mood 4807 9002 R45.89 Premenstru al dysphoric disorder 160964 F32.81 [facility] 25990821 R19.7 [id number] Heriberto De Oliveira MD TCPA_FM_[place] 701 S [facility] 900 [place] [address] 05/03/2020 13:40:33 05/03/2020 16:50:43 Allergic rhinitis 70822336 J30.1 J30.89 [id number] Brittany Coe MD SFC_PEDI ALGY_[facility] 70 S. [facility] [address] [place] [address] 05/16/2020 11:52:14 05/16/2020 12:49:30 Dermatitis caused by ingested food 178944274 L27.2 Asthma 991016729 J45.90 9 Allergic rhinitis 357515 04 J30.1 J30.89 Allergy to drug 90423168 2 T50.905D [id number] Christi Hendricks SF_PEDI ALGY_[place] [address] [facility] [address] [place] [address] 06/07/2020 12:33:12 06/07/2020 13:19:33 Allergic rhinitis 74116783 J30.1 J30.89 [id number] Tasha Martin C_PEDI ALGY_[address] [place] [address] 07/05/2020 09:48:17 07/05/2020 10:47:59 Allergic rhinitis 08702070 J30.1 J30.89 [id number] Judith Scales [facility]_PEDI ADOL MED_STRCT 304 1301 Kerri Prakash [facility] [address] [place] [address] 07/27/2020 13:10:33 07/27/2020 13:56:16 Primary dysmenorrhea 14557004 N94.4 Acne vulgaris 95247458 L 70.0 Disturbance in mood 4807 9002 R45.89 Premenstru al dysphoric disorder 171466 F32.81 Diarrhea 64466445 R19.7 Nausea and vomiting 1693 2000 R11.2 [id number] Tasha Velardel C_PEDI ALGY_[facility] T 200 1301 Kerri Prakash [facility] 200 [place] [address] 08/14/2020 12:21:33 08/14/2020 13:27:40 Allergic rhinitis 17242085 J30.1 J30.89 [id number] Tasha Velardel SFC_PEDI ALGY_[place] [address] [facility] [address] [place] [address] 09/20/2020 11:05:11 09/20/2020 13:10:36 Allergic rhinitis 69882547 J30.1 J30.89 [id number] Judith Scales SFC_PEDI ADOL MED_STRCT 304 1301 Kerri Prakash [facility] [address] [place] [address] 10/04/2020 12:53:15 10/04/2020 13:45:16 Primary dysmenorrhea 03605009 N94.4 Acne vulgaris 58001913 L 70.0 Disturbance in mood 4807 9002 R45.89 Premenstru al dysphoric disorder 953825 F32.81 Diarrhea 50437961 R19.7 [id number] Tasha Veronica SFC_PEDI ALGY_STRC T 200 1301 Kerri Prakash [facility] [address] [place] [address] 10/30/2020 09:08:49 10/30/2020 11:06:33 Allergic rhinitis 44300639 J30.9 [id number] Tasha Veronica SFC_PEDI ALGY_[place] [address] S. [facility] Q [address] [place] [address] 11/29/2020 10:33:59 11/29/2020 12:32:49 Allergic rhinitis 04849401 J30.1 J30.89 [id number] Tasha Veronica SFC_PEDI ALGY_[place] [address] S. [facility] Q [address] [place] [address] 12/28/2020 11:59:23 12/28/2020 12:01:36 Allergic rhinitis 29277287 J30.1 J30.89 [id number] Judith Scales SFC_PEDI ADOL MED_STRCT 304 1301 Kerri Prakash [facility] [address] [place] [address] 01/24/2021 11:54:44 01/24/2021 13:00:37 Superficial acne vulgaris 100721499 L70.0 Disturbance in mood 4807 9002 R45.89 Premenstru al dysphoric disorder 085976 F32.81 Primary dysmenorrhea 657 95387 N94.4 Hematochezia 957805437 K 92.1 [id number] Tasha Veronica SFC_PEDI ALGY_[place] [address] S. [facility] Q [address] [place] [address] 02/08/2021 11:25:10 02/08/2021 12:37:44 Allergic rhinitis 92476739 J30.1 J30.89 [id number] Tasha Martin [facility]_PEDI ALGY_[address] Q [address] [place] [address] 03/15/2021 10:35:50 03/15/2021 12:12:47 Dermatitis caused by ingested food 869014032 L27.2 Allergic rhinitis 933455 04 J30.1 J30.89 [id number] Judith Scales [facility]_PEDI ADOL MED_STRCT 304 1301 [facility] [address] [place] [address] 04/11/2021 09:28:44 04/11/2021 10:14:51 Superficial acne vulgaris 943811194 L70.0 Disturbance in mood 4807 9002 R45.89 Premenstru al dysphoric disorder 362633 F32.81 Primary dysmenorrhea 657 26277 N94.4 Nausea 599475445 R11.0 [id number] Brittany Coe MD [facility]_PEDI ALGY_[address], [facility] Q [address] [place] [address] 04/15/2021 09:51:50 04/15/2021 12:48:02 Dermatitis caused by ingested food 285380217 L27.2 Allergic rhinitis 645852 J30.1 J30.89 Asthma 545238273 J45.90 9 [id number] Tasha Martin [facility]_PEDI ALG_[facility] T 200 1301 Kerri Prakash [facility] 200 [place] [address] 05/16/2021 12:41:31 05/16/2021 14:52:39 Allergic rhinitis 71945613 J30.1 J30.89 [id number] Brittany Coe MD [facility]_PEDI ALG[address] Q [address] [place] [address] 06/07/2021 09:29:30 06/07/2021 13:26:18 Dermatitis caused by ingested food 766565068 L27.2 Allergic rhinitis 537165 04 J30.1 J30.89 Asthma 805579689 J45.90 9 [id number] Tasha Veronica SFC_PEDI ALGY_STRC T 200 1301 Kerri Prakash [facility] 200 [place] [address] 06/13/2021 09:46:35 06/13/2021 13:33:52 Allergic rhinitis 25261495 J30.1 J30.89 [id number] Tasha Veronica SFC_PEDI ALGY_[place] [address] S. [facility] Q [address] [place] [address] 07/15/2021 07:35:05 07/15/2021 09:40:41 Allergic rhinitis 07700596 J30.1 J30.89 [id number] Tasha Velardel SFC_PEDI ALGY_STRC T 200 1301 Kerri Prakash [facility] 200 [place] [address] 08/12/2021 12:39:33 08/12/2021 13:00:56 Allergic rhinitis 65423311 J30.1 J30.89 [id number] Tasha Veronica SFC_PEDI ALGY_[place] [address] S. [facility] Q [address] [place] [address] 09/18/2021 09:03:10 09/18/2021 16:59:30 Allergic rhinitis 86576627 J30.1 J30.89 [id number] Tasha Veronica SFC_PEDI ALGY_[address] [facility] [address] [place] [address] 10/18/2021 10:31:32 10/27/2021 20:47:48 Allergic rhinitis 23574699 J30.1 J30.89 [id number] Judith Scales SFC_PEDI ADOL MED_STRCT [address] [facility] Dwain [facility] [address] [place] [address] 11/08/2021 11:02:33 11/08/2021 12:07:29 Superficial acne vulgaris 358834194 L70.0 Premenstru al dysphoric disorder 139474 F32.81 Disturbance in mood 4807 9002 R45.89 Primary dysmenorrhea 657 68589 N94.4 Excessive and frequent menstruation 642513040 N92.0 [id number] Tasha Velardel SFC_PEDI ALGY_[place] [address] S. [facility] [address] [place] [address] 11/25/2021 08:49:32 11/25/2021 10:17:00 Allergic rhinitis 92601920 J30.1 J30.89 [id number] KEN CORLEY NP SFC_PEDI ADOL MED_STRCT 304 1301 Kerri Prakash [address] [address] 12/04/2021 09:04:04 12/04/2021 11:48:08 Premenstrual dysphoric disorder 342164 F32.81 Imbalance of constituents of food intake 362726177 E63.1 Superficia l acne vulgaris 245168445 L70.0 Disturbance in mood 4807 9002 R45.89 [id number] [facility]STR T 200 1301 Kerri Prakash [facility] 200 [place] [address] 01/01/2022 12:04:36 01/01/2022 13:08:59 Allergic rhinitis 00299755 J30.1 J30.89 [id number] KEN CORLEY NP C_PEDI ADOL MED_STRCT 304 1301 Kerrimisa Prakash [address] [address] 01/06/2022 08:37:35 01/06/2022 10:20:13 Premenstrual dysphoric disorder 371659 F32.81 Disturbance in mood 4807 9002 R45.89 Imbalance of constituents of food intake 105448906 E63.1 [id number] Tasha Velardel C_PEDI ALGY_[place] [address] S. [facility] Q [address] [place] [address] 01/31/2022 13:42:34 01/31/2022 15:33:51 Allergic rhinitis 27545715 J30.1 J30.89 [id number] Brittany Coe MD [facility]_PEDI ALGY_[place] [address] [facility] [address] [place] [address] 02/26/2022 08:49:32 02/26/2022 10:07:42 Dermatitis caused by ingested food 025381179 L27.2 Allergic rhinitis 771207 04 J30.1 J30.89 Asthma 345384409 J45.90 9 [id number] Judith Scales SFC_PEDI ADOL MED_STRCT 304 1301 Kerri Prakash [facility] [address] [place] [address] 03/07/2022 12:34:34 03/07/2022 13:34:20 Anxiety 02564633 F41.9 Premenstru al dysphoric disorder 889341 F32.81 Disturbance in mood 4807 9002 R45.89 Allergy to food 35584885 1 Z91.853 [id number] Tasha Velardel SFC_PEDI ALGY_STRC T 200 1301 Kerri Prakash [facility] 200 [place] [address] 03/25/2022 08:49:04 03/25/2022 10:04:27 Allergic rhinitis 79857386 J30.1 J30.89 [id number] MASSIEL PAYNE LEARNING ANALYST SFC_PEDI ADOL MED_STRCT 304 1301 Kerri Dwain [facility] [address] [place] [address] 05/01/2022 11:24:04 05/01/2022 12:40:56 Primary dysmenorrhea 02435218 N94.4 [id number] Tasha Veronica SFC_PEDI ALGY_[place] [address] S. [facility] Q [address] [place] [address] 05/02/2022 09:20:33 05/02/2022 11:07:05 Allergic rhinitis [id number] J30.1 J30.89 [id number] Tasha Veronica [facility] [address] [address] [facility] [address] [place] [address] 05/29/2022 09:50:03 05/29/2022 11:19:29 Allergic rhinitis 70836602 J30.1 J30.89 [id number] Judith Scales [facility] [address] Kerrimisa Prakash [facility] [address] [place] [address] 06/19/2022 13:33:37 06/19/2022 14:50:42 Primary dysmenorrhea 20048711 N94.4 Disturbance in mood 4807 9002 R45.89 Premenstru al dysphoric disorder 327234 F32.81 [id number] Tasha Martin [facility] [address] [place] [address] 06/27/2022 14:29:03 06/30/2022 12:03:08 Allergic rhinitis 29183297 J30.1 J30.89 [id number] [facility] [address] [facility] Dwain [place] [id number] 08/21/2022 08:16:03 08/21/2022 09:47:03 Primary dysmenorrhea 90727950 N94.4 Premenstru al dysphoric disorder 053770 F32.81 Disturbance in mood 4807 9002 R45.89 Abnormal u terine bleeding [id number] 9100 N93.9 [id number] Brittany Coe MD [facility]_[address] [place] [address] 10/02/2022 11:13:34 10/02/2022 14:51:11 Dermatitis caused by ingested food 564636932 L27.2 Allergic rhinitis 620530 04 J30.1 J30.89 Asthma 889497316 J45.90 9 [id number] LORI MOLINA DO [facility]CT [address] Kerrimisa Prakash [address] [address] 10/03/2022 13:18:02 10/03/2022 15:04:37 Premenstrual dysphoric disorder 132674 F32.81 Disturbance in mood 4807 9002 R45.89 Acne 53408719 L70.9 Imbalance of constituents of food intake 694055487 E63.1 Abdominal pain 20377661 R10.9 Non suicid al self inflicted injury 417813393 R45.88 [id number] LORI MOLINA DO [facility]STRCT [address] Kerri Prakash [facility] [address] [place] [address] 12/05/2022 16:14:04 12/05/2022 17:52:09 Premenstrual dysphoric disorder 216847 F32.81 Disturbance in mood 4807 9002 R45.89 Non suicid al self inflicted injury 086516457 R45.88 Imbalance of constituents of food intake 621374127 E63.1 Acne 26425794 L70.9 Health Concerns Section Related Observation LastModified by Organization Detai ls LastModified Time None Recorded Concern Status LastModified by Organization Details LastModified Time None Recorded Advance Directives Directive None Recorded Payers Encounter Date Sequence Insurance Name Policy Number Policy Hager Covered Member ID Hager Member ID Guarantor Name 06/27/2022 1 [facility] [id number] Jerson Tsang [id number] Jerson Tsang 08/21/2022 1 [facility] [id number] Jerson Tsang [id number] Jerson Tsang 10/02/2022 1 [facility] [id number] Jerson Tsang [id number] Jerson Tsang 10/03/2022 [facility] [id number] Jerson Tsang [id number] Jerson Tsang 12/05/2022 1 [facility] [id number] Jerson Tsang [id number] Jerson Tsang Notes Date Note Type Note Provider Name and Address Organization Details Recorded Time 08/21/2022 text/html HPI Notes: Lola thrasher comes [...] they stated she was normal. Judith Scales [address] [facility],[address], [place], [address], [place] 08/21/2022 11:18:58 10/02/2022 text/html HPI Notes: 16 ye ar old female with asthma, food allergy (egg, cashew, pistachio, brazil nut and avocado. Tolerates watermelon and intermittently kiwi. Does not prefer banana. Continue strict avoidance of egg, all tree nuts (in [place] previously cleared of PN) and AR presents for follow-up and IHST. History of anaphylaxis at 1 years. Since last visit: Asthma: No chronic cough, wheeze, or SOB. AR: Tolerating IT - some SOB 12/21 - treated with albuterol and prednisone x 1. Food Allergy: No recent food exposures or reactions. Touring [facility] - extensive discussion with mother and Crystal that [facility] Food Allergy Practice Guidelines do not endorse or mandate that college students with food allergy live in a single dorm (vs. with a room mate). Mom tearful with this information. I will certainly support Crystal in any way possible including educating [employer] of Student [employer] or [facility] or [facility] about Crystal's food allergy history [...] requesting request for single dorm room at [facility] due to food allergy. Given [facility] recommendations state consider candidacy for single dorm - will coordinate this request for Crystal's dorm room; however, encouraged her to consider alternatiTve options. Since last visit - 6 weeks ago - ate tahini - mouth pain and abdominal pain. No progressive v/d or respiratory sxs. This summer ate hummus - also recalls mild sxs. Brittany Coe MD [address] [facility],[address], [place], [address], [place] 10/23/2022 09:15:45 10/03/2022 text/html HPI Notes: Here for follow up for mood and menstrual management Here by herself today. Phone number: [phone] Mirena IUD placed on 05/01/22. String check [...] to address mood and acne. Home from college ([employer] in [place]) since and reports worsening low moods, irritability, and [...] friends through this. Has consistent therapist in [place] but stopped care when moving to college. Interested in continuing therapy once back at school (returning Nov 03) and feels therapy while at home would be helpful Stressors include being home with family. Reports parents says negative comments about weight/nutrition. Also stressed with acclimating to school. Recently started long-distance relationship ( in [place]). Never sexually active. Worried about having sex with IUD in place. Reports history of binge-eating and body image concerns. Followed nutrition previously. Reports some binge eating, maybe more overeating, since being home. Denies skipping meals. Has purged infrequently in the past, did purge once since being home, had not purge before this in a long time. [place] anxious. Acne - breaking out more since coming home. Attributes more to stress, weather change, and change in diet. Follows derm, does not want to change regimen (tazarotene, clindamycin topical) LORI MOLINA DO [address] [facility],[address], [place], [address], [place] 10/04/2022 11:14:31 12/05/2022 text/html HPI Notes: 17 [...] regimen. Following dermatology. LORI MOLINA DO [address] [facility],[address], [place], [address], [place] 12/06/2022 12:26:53 OBGyn Episode No OBEpisode recorded.
[2024-09-10] MEDS: predniSONE 10 MG TABLET 50 MG PO (21:15)
[2024-09-10] MEDS: diphenhydrAMINE 50 MG/ML inj 25 MG IVP (21:16)
[2024-09-10 21:27] VITALS: O2SAT 99
[2024-09-10 21:49] VITALS: RESP 16; O2SAT 99
[2024-09-10 22:26] VITALS: RESP 16; O2SAT 99
[2024-09-10 23:38] VITALS: PULSE 100; RESP 18; O2SAT 96
--- NOTE | 2024-09-11 00:21 | ED.NURSE ---
pt states she is feeling better.
== END 2024-09-11 00:21 | disposition home or self-care (01) ==
LOC: ED 20:53
PROVIDERS: Emergency Provider Family Medicine
DX: T78.40XA Allergy, unspecified, initial encounter (principal)
CPT/HCPCS: 94761; 96374; 99283; 99284; 99285; J1200; J7512

== ENCOUNTER 2024-09-17 15:08 | Emergency (ER) | payer OTHER, SELFPAY ==
[2024-09-17 15:14] VITALS: BP 138/89; PULSE 110; RESP 18; TEMP 37; O2SAT 97; BMI 25.7
--- NOTE | 2024-09-17 15:36 | ED.GENADULT ---
HPI - General Adult General Chief complaint: Urogenital Problems, Female Stated complaint: pelvic pain and vomitting Time Seen by Provider: 09/17/24 15:10 History of Present Illness HPI narrative: This 19-year-old female comes in reporting pain in her lower abdomen. This is been present on and off in the right lower abdomen over the past week or so. She states that at its worse it gets to be 9 out of 10 in severity. Currently she is not having any pain. She did have a urinary tract infection a couple weeks ago and wonders if her symptoms have recurred. She does not really report any dysuria symptoms however. She does not have any vaginal discharge. 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 She arrives here with normal vital signs but does have some tachycardia. She does not report any vomiting or diarrhea. She has daily bowel movements. Related Data Home Medications ?Medication ?Instructions ?Recorded ?Confirmed epinephrine 0.3 mg/0.3 mL 0.3 mg IM Q15M PRN 12/28/22 02/02/23 injection, auto-injector (Auvi-Q) levonorgestrel (Mirena) 1 device intrauterine 12/28/22 dextromethorphan IR 45 1 tab PO BID 02/02/23 02/02/23 mg-bupropion ER 105 mg biphasic tablet (Auvelity) bupropion HCl 100 mg tablet,12 hr 100 mg PO DAILY 12/12/23 12/12/23 sustained-release (Wellbutrin SR) sertraline 100 mg tablet 100 mg PO DAILY 12/12/23 12/12/23 spironolactone 100 mg tablet 100 mg PO DAILY 12/12/23 12/12/23 Allergies Allergy/AdvReac Type Severity Reaction Status Date / Time avocado Allergy Verified 09/17/24 17:04 cashew nut Allergy Verified 09/17/24 17:04 egg Allergy Verified 09/17/24 17:04 pistachio nut Allergy Verified 09/17/24 17:04 sesame seed Allergy Verified 09/17/24 17:04 tree nut Allergy Verified 09/17/24 17:04 Review of Systems Status of ROS: Reports: 10 or more systems reviewed and unremarkable except as noted in History and below Narrative: Constitutional: No fevers, no weight gain or loss. Eyes: No discharge. No vision changes. HENT: No congestion, no sore throat, no ear pain. Cardiovascular: No chest pain, no palpitations. Respiratory: No shortness of breath, no wheezes, no cough. Gastrointestinal: No vomiting, no diarrhea. Abdominal pain in the right lower quadrant along the inguinal region and the crease between her abdomen and right upper leg. Genitourinary: No dysuria, no hematuria. Musculoskeletal: Normal range of motion. Skin: No rashes, no pruritis. Neurological: No dizziness, weakness, sensory change, speech change. Endo/Heme/Allergies: No bruising or bleeding. No polydipsia. Pysch: no suicidality, no anxiety, no insomnia. All other systems reviewed and are negative. [facility] Medical History Anaphylactic reaction ?T78.2XXA - Anaphylactic shock, unspecified, initial encounter (ICD-10) Asthma, exercise induced ?J45.990 - Exercise induced bronchospasm (ICD-10) Depression ?F32.A - Depression, unspecified (ICD-10) Social History Smoking Status: Never smoker Do you use any of these nicotine containing products: None Second hand tobacco smoke exposure: No How often do you have a drink containing alcohol: monthly or less AUDIT-C Alcohol total score: 1 Non-prescribed substance use: denies use service: No Exam Narrative: Exam Narrative: Constitutional: Well-developed, well-nourished, no acute distress. HEENT: Normocephalic, atraumatic. Neck: Normal range of motion. Nontender. Supple. Heart: Regular. No murmurs. Normal rate. Intact distal pulses. Lungs: Clear to auscultation. No chest discomfort. No wheezes, rhonchi, or rales. Abdomen: Normal bowel sounds. Nontender. No rebound tenderness. Genitalia: Deferred. Back: No midline tenderness. Normal range of motion. Extremities: Normal range of motion. No injury. Skin: Intact. No rash. Warm. No erythema or pallor. Neurologic: No altered sensation. No weakness. Alert and oriented. Psychiatric: No suicidality. No anxiety or depression. No insomnia. Nursing notes and vitals signs are reviewed. Const: Vital Signs, click to edit/add: Vital Signs - 24 hr 09/17/24 15:14 09/17/24 17:40 09/17/24 17:44 Temperature 98.6 F 98.6 F Pulse Rate 86 Pulse Rate [Right Pulse Oximeter] 110 H 110 H Respiratory Rate 18 14 14 Blood Pressure 117/88 Blood Pressure [Ri ght Upper Arm] 138/89 138/89 Pulse Oximetry 97 100 Oxygen Delivery Me thod Room Air Course Vital Signs Vital signs: Initial Vital Signs Temperature 98.6 F 09/17/24 15:14 Temperature Source Temporal Artery Scan 09/17/24 15:14 Pulse Rate 110 H 09/17/24 15:14 Pulse Rhythm Regular 09/17/24 15:14 Pulse Strength 3+ Normal 09/17/24 15:14 Respiratory Rate 18 09/17/24 15:14 Blood Pressure 138/89 09/17/24 15:14 Blood Pressure Mean 105 09/17/24 15:14 Blood Pressure Position Sitting 09/17/24 15:14 Pulse Oximetry 97 09/17/24 15:14 Oxygen Delivery Method Room Air 09/17/24 15:14 Vital Signs Temperature 98.6 F 09/17/24 15:14 Pulse Rate 110 H 09/17/24 15:14 Respiratory Rate 18 09/17/24 15:14 Blood Pressure 138/89 09/17/24 15:14 Pulse Oximetry 97 09/17/24 15:14 Oxygen Delivery Method Room Air 09/17/24 15:14 Temperature 98.6 F 09/17/24 17:44 Pulse Rate 110 H 09/17/24 17:44 Respiratory Rate 14 09/17/24 17:44 Blood Pressure 138/89 09/17/24 17:44 Pulse Oximetry 100 09/17/24 17:40 Oxygen Delivery Method Room Air 09/17/24 15:14 Medical Decision Making MDM Narrative Medical decision making narrative: This patient comes in with episodes of right lower quadrant pain that seem to come and go. 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 Today she is not having any symptoms at the time that she happens to visit here. Her exam also is reassuring. Urinalysis was negative for infection. I did speak with the patient and her mother and they are both stating that they would like to have imaging given her past history. CT scan with IV contrast returns with no acute findings except for and uncomplicated left ovarian cyst at about 3 cm in diameter. The patient is reassured with these findings and is okay to return home. I did provide and [facility] prescription for Toradol. Lab Data Labs: Lab Results 09/17/24 09/17/24 Range/Units 15:45 16:40 WBC 10.17 (4.50-11.00) K/uL RBC 4.58 (4.00-5.20) m/uL Hgb 13.9 (12.0-16.0) gm/dL Hct 41.1 (33.0-51.0) % MCV 90 (80-100) fL MCH 30 (26-34) pg MCHC 34 (32-36) gm/dL RDW Coeff of Anup 11.9 (11.5-15.5) % Plt Count 314 (140-440) K/uL Neut % (Auto) 67.0 (42.0-72.0) % Lymph % (Auto) 23.7 (20-44) % [place] % (Auto) 5.7 (0.0-11.0) % Eos % (Auto) 3.2 (0.0-7.0) % Baso % (Auto) 0.2 (0.0-3.0) % Neut # (Auto) 6.81 (1.7-7.0) K/uL Lymph # (Auto) 2.41 (0.90-2.90) K/uL [place] # (Auto) 0.60 (0.00-0.90) K/UL Eos # (Auto) 0.33 (0.00-0.50) K/uL Baso # (Auto) 0.02 (0.00-0.30) K/uL Abs Immat Gran (auto) 0.02 (0.00-0.30) K/uL Imm/Tot Granulo (auto) 0.2 % Sodium 136 (135-149) mmol/L Potassium 3.5 L (3.6-5.1) mmol/L Chloride 101 (96-114) mmol/L Carbon Dioxide 25 (20-32) mmol/L Anion Gap 10 (7-15) mEq/L BUN 8 (5-24) mg/dL Creatinine 0.5 (0.5-1.5) mg/dL Estimated Creat Clear 154.98 Estimated GFR 138 ml/min Glucose 88 (60-115) mg/dL Calcium 9.1 (8.4-10.6) mg/dL Urine Color Yellow (Yellow) Urine Appearance Slightly Cloudy A (Clear) Urine pH 6.0 (5.0-8.5) Ur Specific [place] 1.020 (1.000-1.030) Urine Protein Negative (Negative) Urine Glucose (UA) Negative (Negative) Urine Ketones Negative (Negative) Urine Blood Negative (Negative) Urine Nitrite Negative (Negative) Urine Bilirubin Negative (Negative) Urine Urobilinogen 0.2 (0.2-1.0) Ur Leukocyte Esterase Negative (Negative) Urine RBC 0-2 (0-2) Urine WBC 2-5 (0-5) Ur Squamous Epith Cells Many A (None-Few) Urine Bacteria Few A (None) Imaging Data CT scan - abdomen: Radiologist's impression: 1. No cause for right lower quadrant pain identified. 2. There is a 3.5 cm left ovarian cyst that is new since prior CT. Discharge Plan Discharge Clinical Impression: Abdominal pain Additional Instructions: Take medication as needed and indicated. Follow up with MD return if worsening. Prescriptions: No Action spironolactone 100 mg tablet 100 mg PO DAILY sertraline 100 mg tablet 100 mg PO DAILY bupropion HCl [Wellbutrin SR] 100 mg tablet sustained-release 12 hr 100 mg PO DAILY epinephrine [Auvi-Q] 0.3 mg/0.3 mL auto-injector 0.3 mg IM Q15M PRN Patient Comments: INJECT 0.3 ML IN THE MUSCLE NEEDED Mirena 21 mcg/24 hours (8 yrs) 52 mg intrauterine device 1 device intrauterine Auvelity 45-105 mg tablet,IR,delayed rel,biphasic 1 tab PO BID Follow Up/Referrals: Provider,Not a Local [Primary Care Provider] - Stand Alone Forms: MyHealth Info Instructions
[2024-09-17 15:52] LABS: Appearance Urine Slightly Cloudy (Clear); Bilirubin Urine Negative (Negative); Blood Urine Negative (Negative); Color Urine Yellow (Yellow); Glucose Urine Negative (Negative); Ketones Urine Negative (Negative); Leukocyte Esterase Urine Negative (Negative); Nitrite Urine Negative (Negative); Protein Urine Negative (Negative); Urobilinogen Urine 0.2 (0.2-1.0)
--- OUTSIDE RECORDS SUMMARY | 2024-09-17 15:53 | XMS_ITS | Data Portability ---
Author Organization [facility], [facility] Address [address] [place] [address] Care Team Providers Care Talend Etl Developer Name Role Phone OSIEL ISSA Primary Care Provider PENGELIAN Psychiatrist Assessment Encounter Date Assessment Date Assessment LastModified by Organization Details LastModified Time 09/29/2023 09/29/2023 Total time: 35 min. This includes time spent with patient, as well as time spent before and after the visit reviewing the chart, documenting the encounter and reviewing labs and x-rays. [email or web address] Not available 09/29/2023 14:02:25 Plan of Treatment Reminders Order Date Submit Date Provider Last Modified By Organization Details Last Modified Time Details Appointments None recorded. Lab lipid panel, serum 2022 023 [facility], [address], [address], [place], [address], 3 07:22:30 CBC w/ auto diff 2022 023 [facility], [address], [address], [place], [address], 3 07:22:31 ESR (erythrocyt e sedimentati on rate), blood 2022 023 [facility], [address], [address], [place], [address], 3 07:22:33 TSH, serum or plasma 2022 023 [facility], [address], [place], [address], 3 07:22:34 CMP, serum or plasma 2022 023 [facility], [address], [place], [address], 3 07:22:32 Referral None recorded. Procedures None recorded. Surgeries None recorded. Imaging None recorded. Medication Orders EpiPen 2-Thiago 0.3 mg/0.3 mL injection, auto-inject or [address]22 [facility] [id number]), [address] [facility], [place], [place], [place], [id number], 13:45:15 Patient TargetsNo targets recorded. Patient InstructionsNo instructions recorded. Reason for Referral None Reported. Results Created Date Observation Date Name Description Value Unit Range Abnormal Flag Note LastModifiedBy Organization Detail LastModifiedTime 09/29/2009/30/2023 LIPID PANEL cholesterol 149 mg/dL <200 Not Available [facility] - Main Lab (Blood Not Drawn At This Location) Visit [facility] [place], [address], 09/30/2023 07:22:30 09/29/2009/30/2023 LIPID PANEL triglyceride s 67 mg/dL <150 Not Available [facility] - Main Lab (Blood Not Drawn At This Location) Visit [facility] [place], [address], 09/30/2023 07:22:30 09/29/20 23 09/30/2023 LIPID PANEL HDL cholesterol 59 mg/dL >39 Not Available [facility] - Main Lab (Blood Not Drawn At This Location) Visit [facility] [place], [address], 09/30/2023 07:22:30 09/29/20 23 09/30/2023 LIPID PANEL [...] SEE INDIGO LERMA NT AT http: [email or web address] Not Available [facility] Main Lab (Blood Not Drawn At This Location) Visit [facility] [place], [address], 09/30/2023 07:22:30 09/29/20 23 09/30/2023 LIPID PANEL risk ratio LDL/HDL 1.29 ratio <3.22 Testi ng Perfo rmed At: [facility] [address] [place] [address] Labor atory Direc tor: Eulalio wright M.D. JIALARA Orozcoshay r [id number] [place] [id number] Not Available [facility] Main Lab (Blood Not Drawn At This Location) Visit [facility] [place], [address], 09/30/2023 07:22:30 09/29/20 23 09/30/2023 CBC W/AUT O DIFF WITH PLATE LETS WBC 5.5 K/uL 3.5-11 .0 Not Available [facility] Main Lab (Blood Not Drawn At This Location) Visit [facility] [place], [address], 09/30/2023 07:22:31 09/29/20 23 09/30/2023 CBC W/AUT O DIFF WITH PLATE LETS RBC 4.52 M/uL 3.80-5 .40 Not Available [facility] Main Lab (Blood Not Drawn At This Location) Visit [facility] [place], [address], 09/30/2023 07:22:31 09/29/20 23 09/30/2023 CBC W/AUT O DIFF WITH PLATE LETS hemoglobin 14.1 g/dL 11.5-1 5.5 Not Available [facility] Main Lab (Blood Not Drawn At This Location) Visit [facility] [place], [address], 09/30/2023 07:22:31 09/29/20 23 09/30/2023 CBC W/AUT O DIFF WITH PLATE LETS hematocrit 41.1 % 34.0-4 5.0 Not Available [facility] Main Lab (Blood Not Drawn At This Location) Visit [facility] [place], [address], 09/30/2023 07:22:31 09/29/20 23 09/30/2023 CBC W/AUT O DIFF WITH PLATE LETS MCV 90.9 fL 80.0-9 9.0 Not Available [facility] Main Lab (Blood Not Drawn At This Location) Visit [facility] [place], [address], 09/30/2023 07:22:31 09/29/20 23 09/30/2023 CBC W/AUT O DIFF WITH PLATE LETS MCH 31.2 pg 25.0-3 3.0 Not Available [facility] Main Lab (Blood Not Drawn At This Location) Visit [facility] [place], [address], 09/30/2023 07:22:31 09/29/20 23 09/30/2023 CBC W/AUT O DIFF WITH PLATE LETS MCHC 34.3 g/dL 31.0-3 6.0 Not Available [facility] Main Lab (Blood Not Drawn At This Location) Visit [facility] [place], [address], 09/30/2023 07:22:31 09/29/20 23 09/30/2023 CBC W/AUT O DIFF WITH PLATE LETS RDW 11.6 % 11.5-1 5.0 Not Available [facility] Main Lab (Blood Not Drawn At This Location) Visit [facility], [place], [address], 09/30/2023 07:22:31 09/29/20 23 09/30/2023 CBC W/AUT O DIFF WITH PLATE LETS neutrophils 57.0 % Not Available [facility] - Main Lab (Blood Not Drawn At This Location) Visit [facility] [place], [address], 09/30/2023 07:22:31 09/29/20 23 09/30/2023 CBC W/AUT O DIFF WITH PLATE LETS lymphocytes 29.3 % Not Available [facility] Main Lab (Blood Not Drawn At This Location) Visit [facility] [place], [address], 09/30/2023 07:22:31 09/29/20 23 09/30/2023 CBC W/AUT O DIFF WITH PLATE LETS monocytes 5.5 % Not Available [facility] Main Lab (Blood Not Drawn At This Location) Visit [facility] [place], [address], 09/30/2023 07:22:31 09/29/20 23 09/30/2023 CBC W/AUT O DIFF WITH PLATE LETS eosinophils 7.3 % Not Available [facility] Main Lab (Blood Not Drawn At This Location) Visit [facility] [place], [address], 09/30/2023 07:22:31 09/29/20 23 09/30/2023 CBC W/AUT O DIFF WITH PLATE LETS basophils 0.7 % Not Available [facility] Main Lab (Blood Not Drawn At This Location) Visit [facility] [place], [address], 09/30/2023 07:22:31 09/29/20 23 09/30/2023 CBC W/AUT O DIFF WITH PLATE LETS immature granulocytes 0.2 % Not Available [facility] - Main Lab (Blood Not Drawn At This Location) Visit [facility] [place], [address], 09/30/2023 07:22:31 09/29/20 23 09/30/2023 CBC W/AUT O DIFF WITH PLATE LETS nucleated RBCs 0.0 /100_ WBC's 0.0 Not Available [facility] Main Lab (Blood Not Drawn At This Location) Visit [facility] [place], [address], 09/30/2023 07:22:31 09/29/20 23 09/30/2023 CBC W/AUT O DIFF WITH PLATE LETS platelet count 336 K/uL 130-40 0 Not Available [facility] Main Lab (Blood Not Drawn At This Location) Visit [facility] [place], [address], 09/30/2023 07:22:31 09/29/20 23 09/30/2023 CBC W/AUT O DIFF WITH PLATE LETS absolute neutrophils 3.11 K/uL 1.50-7 .50 Not Available [facility] Main Lab (Blood Not Drawn At This Location) Visit [facility] [place], [address], 09/30/2023 07:22:31 09/29/20 23 09/30/2023 CBC W/AUT O DIFF WITH PLATE LETS absolute lymphocytes 1.60 K/uL 1.00-4 .00 Not Available [facility] Main Lab (Blood Not Drawn At This Location) Visit [facility] [place], [address], 09/30/2023 07:22:31 09/29/20 23 09/30/2023 CBC W/AUT O DIFF WITH PLATE LETS absolute monocytes 0.30 K/uL 0.20-1 .00 Not Available [facility] Main Lab (Blood Not Drawn At This Location) Visit [facility] [place], [address], 09/30/2023 07:22:31 09/29/20 23 09/30/2023 CBC W/AUT O DIFF WITH PLATE LETS absolute eosinophils 0.40 K/uL 0.00-0 .50 Not Available [facility] Main Lab (Blood Not Drawn At This Location) Visit [facility] [place], [address], 09/30/2023 07:22:31 09/29/20 23 09/30/2023 CBC W/AUT O DIFF WITH PLATE LETS absolute basophils 0.04 K/uL 0.00-0 .20 Not Available [facility] Main Lab (Blood Not Drawn At This Location) Visit [facility] [place], [address], 09/30/2023 07:22:31 09/29/20 23 09/30/2023 CBC W/AUT O DIFF WITH PLATE LETS abs immature granulocytes 0.01 K/uL 0.00-0 .10 Not Available [facility] Main Lab (Blood Not Drawn At This Location) Visit [facility] [place], [address], 09/30/2023 07:22:31 09/29/20 23 09/30/2023 CBC W/AUT O DIFF WITH PLATE LETS abs nucleated RBCs 0.00 K/uL 0.00-0 .11 Testi ng Perfo rmed At: [facility] [address] [place] [address] Labor atory Dire tor: Eulalio wright M.D. JIAIA Pame r [id number] [place] [id number] Not Available [facility] Main Lab (Blood Not Drawn At This Location) Visit [facility] [place], [address], 09/30/2023 07:22:31 09/29/20 23 09/30/2023 COMPR EHENS BRIANA METAB OLIC PANEL + E-GFR glucose 84 mg/dL 70-99 Not Available [facility] Main Lab (Blood Not Drawn At This Location) Visit [facility] [place], [address], 09/30/2023 07:22:32 09/29/20 23 09/30/2023 COMPR EHENS BRIANA METAB OLIC PANEL + E-GFR BUN 7 mg/dL 6-20 Not Available [facility] Main Lab (Blood Not Drawn At This Location) Visit [facility] [place], [address], 09/30/2023 07:22:32 09/29/20 23 09/30/2023 COMPR EHENS BRIANA METAB OLIC PANEL + E-GFR creatinine 0.63 mg/dL 0.50-1 .10 Not Available [facility] Main Lab (Blood Not Drawn At This Location) Visit [facility] [place], [address], 09/30/2023 07:22:32 09/29/20 23 09/30/2023 COMPR EHENS BRIANA METAB OLIC PANEL + E-GFR eGFR (2020 CKD-epi) 131 mL/mi n/1.7 3 >60 Not Available [facility] Main Lab (Blood Not Drawn At This Location) Visit [facility] [place], [address], 09/30/2023 07:22:32 09/29/20 23 09/30/2023 COMPR EHENS BRIANA METAB OLIC PANEL + E-GFR calc BUN/creat 11 ratio 6-28 Not Available [facility] Main Lab (Blood Not Drawn At This Location) Visit [facility] [place], [address], 09/30/2023 07:22:32 09/29/20 23 09/30/2023 COMPR EHENS BRIANA METAB OLIC PANEL + E-GFR sodium 140 mEq/L 133-14 6 Not Available [facility] Main Lab (Blood Not Drawn At This Location) Visit [facility] [place], [address], 09/30/2023 07:22:32 09/29/20 23 09/30/2023 COMPR EHENS BRIANA METAB OLIC PANEL + E-GFR potassium 5.1 mEq/L 3.5-5. 4 Not Available [facility] Main Lab (Blood Not Drawn At This Location) Visit [facility] [place], [address], 09/30/2023 07:22:32 09/29/20 23 09/30/2023 COMPR EHENS BRIANA METAB OLIC PANEL + E-GFR chloride 103 mEq/L 95-107 Not Available [facility] Main Lab (Blood Not Drawn At This Location) Visit [facility] [place], [address], 09/30/2023 07:22:32 09/29/20 23 09/30/2023 COMPR EHENS BRIANA METAB OLIC PANEL + E-GFR carbon dioxide 26 mEq/L 19-31 Not Available [facility] Main Lab (Blood Not Drawn At This Location) Visit [facility] [place], [address], 09/30/2023 07:22:32 09/29/20 23 09/30/2023 COMPR EHENS BRIANA METAB OLIC PANEL + E-GFR calcium 9.9 mg/dL 8.5-10 .5 Not Available [facility] Main Lab (Blood Not Drawn At This Location) Visit [facility] [place], [address], 09/30/2023 07:22:32 09/29/20 23 09/30/2023 COMPR EHENS BRIANA METAB OLIC PANEL + E-GFR protein, total 6.9 g/dL 6.1-8. 3 Not Available [facility] Main Lab (Blood Not Drawn At This Location) Visit [facility] [place], [address], 09/30/2023 07:22:32 09/29/20 23 09/30/2023 COMPR EHENS BRIANA METAB OLIC PANEL + E-GFR albumin 4.7 g/dL 3.5-5. 2 Not Available [facility] Main Lab (Blood Not Drawn At This Location) Visit [facility] [place], [address], 09/30/2023 07:22:32 09/29/20 23 09/30/2023 COMPR EHENS BRIANA METAB OLIC PANEL + E-GFR calc globulin 2.2 g/dL 2.1-3. 7 Not Available [facility] Main Lab (Blood Not Drawn At This Location) Visit [facility] [place], [address], 09/30/2023 07:22:32 09/29/20 23 09/30/2023 COMPR EHENS BRIANA METAB OLIC PANEL + E-GFR calc A/G ratio 2.1 ratio 1.0-2. 6 Not Available [facility] Main Lab (Blood Not Drawn At This Location) Visit [facility] [place], [address], 09/30/2023 07:22:32 09/29/20 23 09/30/2023 COMPR EHENS BRIANA METAB OLIC PANEL + E-GFR bilirubin, total 0.4 mg/dL <=1.2 Not Available [facility] - Main Lab (Blood Not Drawn At This Location) Visit [facility] [place], [address], 09/30/2023 07:22:32 09/29/20 23 09/30/2023 COMPR EHENS BRIANA METAB OLIC PANEL + E-GFR alkaline phosphatase 88 U/L 41-120 Not Available [facility] - Main Lab (Blood Not Drawn At This Location) Visit [facility] [place], [address], 09/30/2023 07:22:32 09/29/20 23 09/30/2023 COMPR EHENS BRIANA METAB OLIC PANEL + E-GFR AST 16 U/L 9-40 Not Available [facility] Main Lab (Blood Not Drawn At This Location) Visit [facility] [place], [address], 09/30/2023 07:22:32 09/29/20 23 09/30/2023 COMPR EHENS BRIANA METAB OLIC PANEL + E-GFR ALT 13 U/L 5-40 Testi ng Perfo rmed At: [facility] [address] [place] [address] Labor atory Direc tor: Faith Currie r [id number] [place] [id number] Not Available [facility] Main Lab (Blood Not Drawn At This Location) Visit [facility] [place], [address], 09/30/2023 07:22:32 09/29/20 23 09/30/2023 SEDIM ENTAT ION RATE sedimentatio n rate 10 mm/ho ur 0-20 Testi ng Perfo rmed At: [facility] [address] [place] [address] Labor atory Direc tor: Faith Currie Numbe r [id number] [place] [id number] -[id number] Not Available [facility] Main Lab (Blood Not Drawn At This Location) Visit [facility] [place], [address], 09/30/2023 07:22:33 09/29/20 23 09/30/2023 TSH, THIRD GENER ATION TSH, third generation 0.915 uIU/m L 0.400- 4.100 Testi ng Perfo rmed At: [facility] [address] [place] [address] Labor atory Direc tor: Faith Currie r [id number] [place] [id number] Not Available [facility] Main Lab (Blood Not Drawn At This Location) Visit [facility] [place], [address], 09/30/2023 07:22:34 Result Notes None recorded. Problems Name Problem SNOMED Code Status Onset Date Resolution Date Notes Provider Name and Address Organization Details Recorded Time Eosinophilic esophagitis 055994724 Active 2022 Osiel Issa MD [address] [facility], [place], [address], [place] - [facility] 3 13:59:45 Overactive urinary bladder 715360385 Active 2022 Osiel Issa MD [address] [facility], [place], [address], [place] - [facility] 3 13:59:46 Hemorrhoids 50545420 Active 2022 Osiel Issa MD [address] [facility], [place], [address], [place] - [facility] 3 14:00:47 Rectal prolapse 39000249 Active 2022 Osiel Issa MD [address] 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, [place], [address], [place] - [facility] 3 14:02:02 Allergy to food 004784158 Active 2022 Osiel Issa MD [address] [facility], [place], [address], [place] - [facility] 3 14:02:12 Dizziness 664169422 Active 2022 Osiel Issa MD [address] [facility], [place], [address], [facility] 3 14:02:15 Problem Notes None recorded. Procedures Surgical History Date Name Laterality Status Provider Name and Address Organization Details Recorded Time 023 Gastrointestinal Surgery completed Osiel Issa MD [address] [facility] [address], [place], [address], [facility] 09/29/2023 13:41:46 023 Colonoscopy completed Miesha Dhuperoir [facility] 09/29/2023 12:52:44 Imaging Results None recorded. Procedure Notes None recorded. Medical Equipment None Reported. Allergies Allergen ID Allergen Name Allergen Category Reaction Reaction Severity Criticality Documentation Date Start Date Code Code System Note Provider Name and Address Organization Details Recorded Time 210477 egg extract food,medi cation Not available Not available Not available 09/29/2023 70800 15 RxNorm Miesha Dhuperoir [facility], [facility] 3 12:52:16 662019 avocado allergeni c extract food Not available Not available Not available 09/29/2023 24148 2 RxNorm Miesha Dhuperoir null, [facility] 3 12:52:16 248250 tree nut food Not available Not available Not available 09/29/2023 81126 UNK Miesha Dhuperoir [facility], [facility] 3 12:52:16 589194 sesame seed extract food Not available Not available Not available 09/29/2023 78352 46 RxNorm Miesha Dhuperoir null, [facility] 3 12:52:16 Medications Name Sig Start Date [...] Address Organization Details Last Updated DateTime 3 21672.4 9 g 25.1 kg/m2 80 % 162.56 cm 86 /min 99 % 99 % 114 mm[Hg] 82 mm[Hg] Miesha Rubalcava [facility] 3 13:07:16 Date Recorded Body height Body mass index (BMI) Body mass index (BMI) Percentile per age and sex Body weight Heart rate Oxygen saturation Oxygen saturation in Arterial blood by Pulse oximetry Systolic blood pressure Diastolic blood pressure Provider Name and Address Organization Details Last Updated DateTime 4 160.02 cm 26.5 kg/m2 86 % 74828.4 2 g 98 /min 98 % 98 % 110 mm[Hg] 80 mm[Hg] Miesha Rubalcava [facility] 4 10:50:49 Social History Question Answer Notes LastModified by Organizat ion Details LastModified Time Tobacco Smoking Status Never Smoker Miesha miranda [facility] 09/29/2023 12:52:39 Do You Have An Advance [...] 09/29/2023 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 [employer] Information not available 09/29/2023 What Was The [...] available 09/29 12:52:21 Medical History Condition Response Bedwetting Y Allergies (Other than meds) Y Reflux/GERD Y Colon Polyps Y Anxiety/Stress Y Depression Y Asthma Y Defects or Inherited Disease Y Gynecological History Statement/Question Response Flow Light Date of LMP 01/10/2024 Frequency of Cycle (Q days) 28 Duration of Flow (days) 4 Age at Menarche 11 Current Control Method IUD Hormone Replacement Therapy N Obstetrics History GPAL:G 0 P 0 0 0 0 Past Encounters Encounter ID Performer Location Encounter Start Date Encounter Closed Date Diagnosis/Indication Diagnosis SNOMED-CT Code Diagnosis ICD10 Code [id number] Osiel Issa MD [facility] [address] [place] [address] 09/29/2023 12:30:41 10/02/2023 12:27:08 Dizziness 766010226 R42 Allergy to food 15534458 1 T78.1XXA Inguinal lymphadenopathy 182176902 R59.0 Fatigue 42359940 R53.83 Eosinophil ic esophagitis 565941557 K20.0 Overactive urinary bladder 532737117 N32.81 Hemorrhoids 27586116 K64 .9 Rectal prolapse 63270607 K62.3 Hyperlipid emia screening 329617380 Z13.220 Pablo-Silviano los syndrome 500039611 Q79.60 [id number] Osiel Issa MD [facility] [address] [place] [address] 01/18/2024 10:22:21 01/21/2024 11:03:55 Adult health examination 275191415 Z00.00 Pain in ri ght hip joint 2475070507 01094 M25.551 Health Concerns Section Related Observation LastModified by Organization Detai ls LastModified Time None Recorded Concern Status LastModified by Organization Details LastModified Time None Recorded Advance Directives Directive N: Payers Encounter Date Sequence Insurance Name Policy Number Policy Hager Covered Member ID Hager Member ID Guarantor Name 09/29/2023 1 [facility] [id number] Jerson Tsang [id number] Crystal Tsang 01/18/2024 1 [facility] [id number] Jerson Tsang [id number] Crystal Tsang Notes Date Note Type Note Provider Name and Address Organization Details Recorded Time 09/29/2023 text/html DizzinessReporte d bypatient.Quality:ligh theadedness Severity:no effect on daily activities Duration:constant; lasts <5 minutes Context:non-smoker Modifying Factors:going from sit to stand; change in position; rapid movements Aggravating factors:positional changeHip(s)Reported bypatient.Location:rig ht Context:fall Associated Symptoms:no weakness; no numbness; no [...] prolapse surgery 04/2023 Osiel Issa MD [address], [address], [facility] - [facility] 09/29/2023 14:02:42 01/18/2024 text/html Annual WellnessReported bypatient.Diet and Nutrition:healthy diet Depression Risk:history of mood disorders; anxietyHip(s)Reported bypatient.Location:rig ht; right hip pain radiates around the area [...] at times. Osiel Issa MD [address], [address], [facility] 01/18/2024 11:20:56 OBGyn Episode No OBEpisode recorded.
--- OUTSIDE RECORDS SUMMARY | 2024-09-17 15:53 | XMS_ITS ---
Author Organization [facility] Address [address] [place] [address] Care Team Providers Care Head Bander And Liner Operator Name Role Phone Unavailable Unavailable Unavailable Surgery Details Not on file Complications Check Surgery Details section. Procedure Estimated Blood Loss Check Surgery Details section. Procedure Findings Check Surgery Details section. Procedure Specimens Taken Check Surgery Details section.
--- OUTSIDE RECORDS SUMMARY | 2024-09-17 15:53 | XMS_ITS | Referral Summary ---
Author Organization [facility] Address [address] [place] [id number] Care Team Providers Care [employer] District Supervisor Name Role Phone Elsewhere, Pcp Primary Care Provider Unavailabl e Source Comments Patient records contain information from all sites at [facility]. For routine questions regarding patient records, call [phone] during business hours, M-F 8:00 AM - 5:00 PM Central Time. Record requests for emergency care only can be directed to [phone] at any time.[facility] Allergies Active Allergy Reactions Criticality [...] tablet by mouth daily. 01/08/20 Active omega 9-tpo-vee-fish oil 300 mg (120 mg- 180mg)-1,000 mg [...] 24 Active inhalational spacing device (OptiChamber Gail [employer]) spacer See Admin Instructions. Active omeprazole (PriLOSEC) [...] mostly on the weekends and mostly vodka [facility] Utilities Answer Date Recorded In the past 12 months has [facility] electric, gas, oil, or water company threatened [...] How often do you attend [facility] or religion services? Never 03/03/2023 Do you belong to any clubs o r organizations such as restoration groups, unions, fraternal or athletic groups, or [...] medical care, and heating? Patient declined 03/03/2023 [facility] - [...] your living situation today? I have a [facility] place to live 03/13/2024 Education Answer [...] on file Medical Devices Implanted Type Area Valet Attendant Device Identifier Shelf Expiration Date Model / Serial / Lot Perminant Retainers Hardware e.g. pins/screws/fernanda s Mouth Intrauterine Device-04/02/2022 Implanted:04/02 (Quantity not on file) Intrauterine Device Uterus Description:Mirena IUD [place] Biodesi Rectopexy Mesh 7x20 - [id number] Implanted:Qty: 1 on 04/08/2023 by El Mccormick M.B., Ch.B., M.P.H. at [facility] Mesh or Patch Pelvis [facility] 07/01/2024 [id number] / / [id number] Procedures Procedure Name Priority Date/Time Associated Diagnosis [...] M.D., M.S. LAB BLOOD ADD-ON Final Result [facility] [address] [place] [address], [facility] DTL [facility] [address] [place] [address] from Last 3 Months or Most Recently Relevant to Health Maintenance Insurance [employer] Advance Directives For more information, please contact: [phone] * Full Code (Latest Code Status on File) Date Activated Date Inactivated Comments 04/08/2023 8:25 PM 04/09/2023 12:20 PM Question Answer Comments Full Code: Discussed * Full Code Date Activated Date Inactivated Comments 04/08/2023 9:44 AM 04/08/2023 8:25 PM Question Answer Comments Full Code: Discussed Care Teams [employer] District Supervisor Relationship Specialty Start Date End Date Elsewhere, Pcp PCP - General Internal Medicine 08/10/23
--- OUTSIDE RECORDS SUMMARY | 2024-09-17 15:53 | XMS_ITS | Clinical Summary ---
Author Organization [facility] Address [address] [place] [id number] Care Team Providers Care Complaint Supervisor Name Role Phone Elsewhere, Pcp Primary Care Provider Unavailabl e Source Comments Patient records contain information from all sites at [facility]. For routine questions regarding patient records, call [phone] during business hours, M-F 8:00 AM - 5:00 PM Central Time. Record requests for emergency care only can be directed to [phone] at any time[address] Allergies Active Allergy Reactions Criticality Noted Date [...] tablet by mouth daily. 01/08/20 Active omega 6-ify-xaf-fish oil 300 mg (120 mg- 180mg)-1,000 mg [...] 24 Active inhalational spacing device (OptiChamber Gail [facility]) spacer See Admin Instructions. Active [...] mostly on the weekends and mostly vodka [facility] Utilities Answer Date Recorded In the past 12 months has [facility] [employer], gas, oil, or water [email or web address] threatened to shut off services in your [...] How often do you attend chur or religion services? Never 03/03/2023 Do you [...] medical care, and heating? Patient [facility]2023 [facility] Questionnaire Answer Date [...] Completed 03/13/2023 Medical Devices Implanted Type Area Business Intelligence Engineer Device Identifier Shelf Expiration Date Model / Serial / Lot Perminant Retainers Hardware e.g. pins/screws/fernanda s Mouth Intrauterine Device-04/02/2022 Implanted:04/02 (Quantity not on file) Intrauterine Device Uterus Description:Mirena IUD [place] Biodesi Rectopexy Mesh 7x20 - [id number] Implanted:Qty: 1 on 04/08/2023 by El Mccormick M.B., Ch.B., M.P.H. at [facility] Mesh or Patch Pelvis [facility] 07/01/2024 [id number] / / [id number] Procedures Procedure Name Priority Date/Time Associated Diagnosis [...] M.D., M.S. LAB BLOOD ADD-ON Final Result [facility] [address] [place] [address], [facility] DTL [facility] [address] [place] [address] from Last 3 Months or Most Recently Relevant to Health Maintenance Insurance [facility] Advance Directives For more information, please contact: [phone] * Full Code (Latest Code Status on File) Date Activated Date Inactivated Comments 04/08/2023 8:25 PM 04/09/2023 12:20 PM Question Answer Comments Full Code: Discussed * Full Code Date Activated Date Inactivated Comments 04/08/2023 9:44 AM 04/08/2023 8:25 PM Question Answer Comments Full Code: Discussed Care Teams Complaint Supervisor Relationship Specialty Start Date End Date Elsewhere, Pcp PCP - General Internal Medicine 08/10/23
--- OUTSIDE RECORDS SUMMARY | 2024-09-17 15:54 | XMS_ITS | Data Portability ---
Author Organization [facility] Address [address] [place] [address] Assessment Encounter Date Assessment Date Assessment LastModified [...] (rapid plasma reagin), serum 2022 023 [facility] - Main Lab (Blood Not Drawn At This Location), Visit [facility] [place], [address], 3 09:16:24 CT + NG DNA, PCR, urine 2022 023 [facility] - Main Lab (Blood Not Drawn At This Location), Visit [facility] [place], [address], 3 09:16:24 HIV (1+2) antibodies, EIA, serum, reflex HIV-1 western blot (WB) 2022 023 [place] [facility] - Main Lab (Blood Not Drawn At This Location), Visit [facility] [place], [address], 3 01:50:20 hepatitis (A+B+C) panel, serum 2022 023 [place] [facility] - Main Lab (Blood Not Drawn At This Location), Visit [facility] [place], [address], 3 01:50:20 hsv (1+2) igg Ab, serum 2022 023 [place] [facility] - Main Lab (Blood Not Drawn At This Location), Visit [facility] [place], [address], 3 01:50:19 urinalysis, dipstick 2022 023 [email or web address] [id number] In-Office Order, Internal Use Only DO Not Attach Compendium DO Not Attach Compendium, Do Not Delete/merge, [id number] 3 19:59:40 culture, urine 2022 023 [place] [facility] - Main Lab (Blood Not Drawn At This Location), Visit [facility] [place], [address], 3 13:34:44 Referral None recorded. Procedures None recorded. Surgeries None recorded. Imaging audiogram 2021 022 [email or web address] In-House Results, For Internal Use Only, Do Not Delete/merge, [id number] 2 12:41:54 Medication Orders ondansetron 4 mg disintegrat ing tablet 2022 023 [facility] [id number] , [place], [place], [id number], 3 10:42:06 Bactrim DS 800 mg-160 mg tablet 2022 [email or web address] [facility] [id number] , [place], [place], [id number], 3 19:59:40 Patient TargetsNo targets recorded. Patient Instructions Encounter Date Encounter Id Patient Instructions Last Modified By Organization Details Last Modified Time 10/07/2022 [id number] Bivalent vaccine given prior to starting college. Up to date on flu vaccine. Moving to adult medicine reviewed. Continue follow up with adolescent medicine as long as they are mutually compatible. The patient sees an rubber mill tender annually so vision screen was deferred. Not available 10/11/2022 10:51:47 01/20/2023 [id number] We had a good discussion about when [...] as needed. Not available 01/25/2023 12:52:48 04/30/2023 [id number] It's time to consider transition to an [...] the results. Not available 04/30/2023 10:40:58 06/09/2023 [id number] painful urinatio n (dysuria): care instructions [email or web address] Not available 06/09/2023 19:59:40 Reason for Referral [...] (Blood Not Drawn At This Location) Visit [facility] [place], [address], 05/02/2023 01:50:19 04/30/2005/01/2023 HERPE S SIMPL EX 1/2 AB, IGG PANEL herpes simplex 2 Ab, IgG 0.087 index see below INTER PRETA TION UNITS RANGE ----- ----- ---- ----- ----- NON-R EACTI VE INDEX <1.00 0 REACT BRIANA INDEX >=1.0 00 Testi ng Perfo rmed At: [facility] [address] [place] [address] [employer] Dire tor: Faith Currie r [id number] [place] [id number] -01 Not Available [facility] - Main Lab (Blood Not Drawn At This Location) Visit [facility] [place], [address], 05/02/2023 01:50:19 04/30/2005/01/2023 HIV 1/2 4TH GEN, RFLX CONF HIV 1/2 4TH gen, rflx conf NON-RE ACTIVE non-re active Testi ng Perfo rmed At: [facility] [employer] [address] [place] [address] Labor [employer] Dire tor: Faith Currie r [id number] [place] [id number] -01 Not Available [facility] - Main Lab (Blood Not Drawn At This Location) Visit [facility] [place], [address], 05/02/2023 01:50:19 04/30/2005/02/2023 RPR RPR result NON-RE ACTIVE non-re active Not Available [facility] - Main Lab (Blood Not Drawn At This Location) Visit [facility] [place], [address], 05/02/2023 01:50:20 04/30/2005/02/2023 RPR RPR titer NOT INDIC. titer not indic. Testi ng Perfo rmed At: [facility] [address] [place] [address] Labor atory [facility] tor: Faith CurrieLARA Thornton kd [id number] [place] [id number] -01 Not Available [facility] - Main Lab (Blood Not Drawn At This Location) Visit [facility] [facility] [place], [address], 05/02/2023 01:50:20 04/30/20 23 05/01/2023 HEPAT ITIS PANEL , DIAGN OSTIC hepatitis A total Ab REACTI VE non-re active abnormal Not Available [facility] - Main Lab (Blood Not Drawn At This Location) Visit [facility] [facility] [place], [address], 05/02/2023 01:50:20 04/30/20 23 05/01/2023 HEPAT ITIS PANEL , DIAGN OSTIC hepatitis B surf Ag NON-RE ACTIVE non-re active Not Available [facility] Lab (Blood Not Drawn At This Location) Visit [facility] [facility] [place], [address], 05/02/2023 01:50:20 04/30/20 23 05/01/2023 HEPAT ITIS PANEL , DIAGN OSTIC hep B core total Ab NON-RE ACTIVE non-re active Not Available [facility] - Main Lab (Blood Not Drawn At This Location) Visit [facility] [facility] [place], [address], 05/02/2023 01:50:20 04/30/20 23 05/01/2023 HEPAT ITIS PANEL , DIAGN OSTIC hepatitis B surface Ab REACTI VE non-re active abnormal Not Available [facility] - Main Lab (Blood Not Drawn At This Location) Visit [facility] [facility] [place], [address], 05/02/2023 01:50:20 04/30/2005/01/2023 HEPAT ITIS PANEL , DIAGN OSTIC hepatitis C antibody NON-RE ACTIVE non-re active Not Available [facility] - Main Lab (Blood Not Drawn At This Location) Visit [facility] [facility] [place], [address], 05/02/2023 01:50:20 04/30/20 23 05/01/2023 HEPAT ITIS [...] (Blood Not Drawn At This Location) Visit [facility] [facility] [place], [address], 05/02/2023 01:50:20 04/30/2005/01/2023 HEPAT ITIS PANEL , DIAGN OSTIC interpretati on hepatitis B: (NOTE) Hepat itis B serol ogy consi stent with immun ity to hepat itis B from previ ous hepat itis B vacci natio n. Not Available [facility] - Main Lab (Blood Not Drawn At This Location) Visit [facility] [facility] [place], [address], 05/02/2023 01:50:20 04/30/2005/01/2023 HEPAT ITIS PANEL , [...] zan Patho logy [facility] [address] [place] [address] [facility]: Faith Currie [id number] [place] [id number] -01 Not Available [facility] - Main Lab (Blood Not Drawn At This Location) Visit [facility] [facility] [place], [address], 05/02/2023 01:50:20 04/30/2005/01/2023 CT/NG , NAAT, URINE [...] (Blood Not Drawn At This Location) Visit [facility] [facility] [place], [address], 05/02/2023 01:50:21 04/30/2005/01/2023 CT/NG , NAAT, URINE [...] At: [facility] log[facility] Labor at[facility] [employer] [address] [place] [address] [facility] [employer] [facility] tor: Faith Currie [id number] [place] [id number] -01 Not Available [facility] - Main Lab (Blood Not Drawn At This Location) Visit [facility] [facility] [place], [address], 05/02/2023 01:50:21 04/30/2005/01/2023 HEPAT ITIS A IGM hepatitis A IgM NON-RE ACTIVE non-re active Testi ng Perfo rmed At: [facility] [employer] [address] [place] [address] [facility] tor: Eulalio wright M.D. GIGI Thornton r [id number] [place] [id number] -01 Not Available [facility] - Main Lab (Blood Not Drawn At This Location) Visit [facility] [place] [place], [place], [address], 05/02/2023 01:50:21 06/09/20 23 06/12/2023 CULTU RE, URINE culture, urine SPECIM EN NUMBER : [id number] abnormal CULTU RE, URINE SPECI SONNY THORNTON R: [id number] 24[facility] E: URINE REPOR T STATU S: FINAL [...] rmed At: [facility] [employer] [address] [place] [address] [facility] [employer] [facility] tor: Eulalio wright M.D. GIGI Thornton r [id number] [place] [id number] -01 Not Available [facility] - Main Lab (Blood Not Drawn At This Location) Visit [facility] [place] [place], [place], [address], 06/12/2023 13:34:44 06/09/20 23 06/09/2023 urina lysis , dipst ick Unknown Analyte Yellow , clear Not Available In-Office Order Internal Use Only DO Not Attach Compendium DO Not Attach Compendium, Do Not Delete/merge, [id number] 06/09/2023 19:41:33 06/09/20 23 06/09/2023 urina lysis , dipst ick Unknown Analyte Negati ve Not Available In-Office Order Internal Use Only DO Not Attach Compendium DO Not Attach Compendium, Do Not Delete/merge, [id number] 06/09/2023 19:41:33 06/09/2006/09/2023 urina lysis , dipst ick Unknown Analyte negati ve Not Available In-Office Order Internal Use Only DO Not Attach Compendium DO Not Attach Compendium, Do Not Delete/merge, [id number] 06/09/2023 19:41:33 06/09/20 23 06/09/2023 urina lysis , dipst ick Unknown Analyte negati ve Not Available In-Office Order Internal Use Only DO Not Attach Compendium DO Not Attach Compendium, Do Not Delete/merge, [id number] 06/09/2023 19:41:33 06/09/20 23 06/09/2023 urina lysis , dipst ick Unknown Analyte 1.005 Not Available In-Off ice Order Internal Use Only DO Not Attach Compendium DO Not Attach Compendium, Do Not Delete/merge, [id number] 06/09/2023 19:41:33 06/09/20 23 06/09/2023 urina lysis , dipst ick Unknown Analyte small Not Available In-Off ice Order Internal Use Only DO Not Attach Compendium DO Not Attach Compendium, Do Not Delete/merge, [id number] 06/09/2023 19:41:33 06/09/20 23 06/09/2023 urina lysis , dipst ick Unknown Analyte 8 Not Available In-Off ice Order Internal Use Only DO Not Attach Compendium DO Not Attach Compendium, Do Not Delete/merge, [id number] 06/09/2023 19:41:33 06/09/20 23 06/09/2023 urina lysis , dipst ick Unknown Analyte negati ve Not Available In-Office Order Internal Use Only DO Not Attach Compendium DO Not Attach Compendium, Do Not Delete/merge, [id number] 06/09/2023 19:41:33 06/09/20 23 06/09/2023 urina lysis , dipst ick Unknown Analyte 0.2 Not Available In-Off ice Order Internal Use Only DO Not Attach Compendium DO Not Attach Compendium, Do Not Delete/merge, [id number] 06/09/2023 19:41:33 06/09/20 23 06/09/2023 urina lysis , dipst ick Unknown Analyte negati ve Not Available In-Office Order Internal Use Only DO Not Attach Compendium DO Not Attach Compendium, Do Not Delete/merge, [id number] 06/09/2023 19:41:33 06/09/20 23 06/09/2023 urina lysis , dipst ick Unknown Analyte modera te Not Available In-Office Order Internal Use Only DO Not Attach Compendium DO Not Attach Compendium, Do Not Delete/merge, [id number] 06/09/2023 19:41:33 06/09/20 23 06/09/2023 urina lysis , dipst ick Unknown Analyte yes Not Available In-Off ice Order Internal Use Only DO Not Attach Compendium DO Not Attach Compendium, Do Not Delete/merge, [id number] 06/09/2023 19:41:33 10/07/20 22 10/07/2022 audio gram No observ ation record ed. [email or web address] In-House Results For Internal Use Only, Do Not Delete/merge, [id number] 10/07/2022 12:41:46 Result Notes None recorded. Problems Name Problem SNOMED Code Status Onset Date Resolution Date Notes Provider Name and Address Organization Details Recorded Time Asthma 099584924 Active 2013 mild intermitt ent, followed by Dr. Carolin Ndiaye MD [address] [place] [address] [address], [place], [address], [facility] 2 08:45:49 Premenstr ual dysphoric disorder 050126 Active 2018 Daniella Ndiaye MD [address], [place], [address], [facility] 2 08:45:53 Primary dysmenorr hea 95088955 Active [address] 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 045046146679 02 Active 2021 Daniella Ndiaye MD [address], [place], [address], [facility] 2 08:45:45 Anxiety 56758456 Active 2021 Daniella Ndiaye MD [address], [place], [address], [facility] 2 10:51:56 Mixed anxiety and depressiv e disorder 134705223 Active 2022 Daniella Ndiaye MD [address], [place], [address], [facility] 3 15:11:14 Chronic post-trau matic stress disorder 933216603 Active 2022 Daniella Ndiaye MD [address], [place], [address], [facility] 3 15:11:18 Mild persisten t asthma 837899447 Active 2022 GREYSON Rogers null, [facility] 3 10:18:54 Nausea 720536852 Active 2022 Daniella Ndiaye MD [address], [place], [address], [facility] 3 15:02:28 Problem Notes None recorded. Procedures Surgical History Date Name Laterality Status Provider Name and Address Organization Details Recorded Time 3 repair of rectal prolapse completed GREYSON Rogers [facility] 04/30/2023 10:05:44 Imaging Results Imaging Date Name Status LastModified by Organiz ation Details LastModified Time 10/07/2022 audiogram completed [email or web address] In-House Resul ts For Internal Use Only, Do Not Delete/merge, [id number] 10/07/2022 12:41:46 Procedure Notes None recorded. Medical Equipment None Reported. Allergies Allergen ID Allergen Name Allergen Category Reaction Reaction Severity Criticality Documentation Date Start Date Code Code System Note Provider Name and Address Organization Details Recorded Time 18702 tree nut food Not available Not available Not available 06/03/2018 Comme nt: Recor ded 12/03 3:52P M by Franco hong MA, Nurse Visit Prom oted Signi ficcynthia ce: *; Not Available [facility] 8 03:27:00 96074 avocado allergeni c extract food Not available Not available Not available 06/03/2018 12370 2 RxNorm React ion: Banan as, melon s, kiwi; Comme nt: Recor ded 12/03 3:52P M by Franco hong MA, Nurse Visit Prom oted Signi fican ce: *; Not Available [facility] 8 03:27:00 65975 egg extract food,medi cation Not available Not available Not available 06/03/2018 01164 15 RxNorm Comme nt: Recor ded 12/03 3:52P M by Franco hong MA, Nurse Visit Prom oted Skye stevens ce: *; Not Available [facility] 8 03:27:00 59134 mustard Not available Not available Not available Not available 06/03/2018 Comme nt: Recor ded 12/03 3:52P M by Franco hong MA, Nurse Visit Prom oted Skye stevens ce: *; Not Available [facility] 8 03:27:00 Medications Name Sig Start Date [...] Not Available Not Available N ot Available [facility] spacer USE DIRECTED. active Not Available Not [...] Updated DateTime 09/30/2022 162.56 cm Arminda Mccann [facility] 09/30/2022 17:01:44 Date Recorded Body height Heart [...] % 100 % 26.5 kg/m2 87 % 15163.6 3 g 117 mm[Hg] 82 mm[Hg] 115 mm[Hg] 77 mm[Hg] [facility] 2 12:42:58 Date Recorded Body height Body temperature Body mass index (BMI) Body mass index (BMI) Percentile per age and sex Body weight Heart rate Oxygen saturation Oxygen saturation in Arterial blood by Pulse oximetry Provider Name and Address Organization Details Last Updated DateTime 3 161.92 cm 97.3 [degF] 27.3 kg/m2 89 % 05540.5 9 g 108 /min 99 % 99 % [facility] 3 14:49:18 Date Recorded Body height Body temperature Body mass index (BMI) Percentile per age and sex Body mass index (BMI) Body weight Heart rate Oxygen saturation Oxygen saturation in Arterial blood by Pulse oximetry Systolic blood pressure Diastolic blood pressure Provider Name and Address Organization Details Last Updated DateTime 3 161.92 cm 98.1 [degF] 83 % 25.6 kg/m2 30934.6 7 g 98 /min 100 % 100 % 123 mm[Hg] 85 mm[Hg] Med Vivar MA [facility] 3 10:06:28 Date Recorded Systolic blood pressure Diastolic blood pressure Provider Name and Address Organization Details Last Updated DateTime 04/30/2023 114 mm[Hg] 72 mm[Hg] Linsey Noonan MA [facility] 04/30/2023 10:43:55 Date Recorded Body height Body temperature Body mass index (BMI) Percentile per age and sex Body mass index (BMI) Body weight Oxygen saturation Oxygen saturation in Arterial blood by Pulse oximetry Heart rate Provider Name and Address Organization Details Last Updated DateTime 3 161.92 cm 98.5 [degF] 89 % 27.3 kg/m2 82854.5 9 g 100 % 100 % 95 /min Edmar Singh [facility] 3 19:19:38 Social History None recorded. Functional Status None recorded. Mental Status None recorded. Family History Nothing Reported. Medical History No medical history recorded. Gynecological HistoryNo gynecological history recorded. Obstetrics History GPAL:G 0 P 0 0 0 0 Immunizations Vaccine Type Date Status Provider Name and Address Organization Details Recorded Time HPV9 04/19/2019 completed Not Available [facility] 02:17:57 MMR 03/20/2015 completed Not Available [facility] 05:26:14 varicella 06/17/2018 completed Not Available [facility] 05:26:14 varicella 07/06/2020 completed Rachael Blair CMA null, [facility] 07/06/2020 17:53:37 Influenza, split virus, quadrivalent, PF 09/03/2020 completed Ricshell Straughter null, [facility] 09/03/2020 17:58:08 meningococcal B, OMV 09/24/2020 completed Daniella Ndiaye MD [address], [place], [address], [facility] 09/24/2020 12:04:12 HPV9 09/24/2020 completed Daniella Ndiaye MD [address], [place], [address], [facility] 09/24/2020 12:04:12 Influenza, split virus, quadrivalent, PF 09/05/2021 completed Rylie KEYES null, [facility] 09/05/2021 13:27:00 meningococcal B, OMV 10/22/2021 completed Louise Anguianoo null, [facility] 10/22/2021 11:29:42 meningococcal MCV4P 10/22/2021 completed Louise Montero jillo null, [facility] 10/22/2021 11:54:33 Influenza, split virus, quadrivalent, PF 09/30/2022 completed Daniella Ndiaye MD [address] [facility] [address], [place], [address], [facility] 10/05/2022 22:59:00 Tdap 10/07/2022 completed Daniella Ndiaye MD [address] [facility] [address], [place], [address], [facility] 10/11/2022 10:50:40 Hep A, ped/adol, 2 [...] [employer] 05:26:14 IPV 05/07/2009 completed Not Available [facility] 05:26:13 Hib (PRP-OMP) 08/25/2005 completed [facility] 06/17/2023 05:26:14 DTaP 2004 completed Not Available [facility] 05:26:14 IPV 2004 completed Not Available [facility] 05:26:13 DTaP 2004 completed Not Available [facility] 05:26:14 Hep B, adolescent or pediatric 2004 completed Not Available [facility] 06/17/2023 05:26:14 Hep B, adolescent or pediatric 2004 completed Not Available [facility] 06/17/2023 05:26:14 DTaP 05/07/2009 completed Not Available [facility] 05:26:14 pneumococcal conjugate PCV 7 04/25/2005 completed Not Available [facility] 06/17/2023 05:26:14 Tdap 12/03/2015 completed Not Available [facility] 05:26:14 meningococcal MCV4P 12/03/2015 completed Not Available [facility] 06/17/2023 05:26:14 Hib (PRP-OMP) 2004 completed Not Available [facility] 06/17/2023 05:26:14 Hep A, ped/adol, 2 dose 02/19/2011 completed Not Available [facility] 06/17/2023 05:26:14 Past Encounters Encounter ID Performer Location Encounter Start Date Encounter Closed Date Diagnosis/Indication Diagnosis SNOMED-CT Code Diagnosis ICD10 Code [id number] [facility] [address] [place] [address] 04/19/2019 08:53:17 04/19/2019 10:12:52 Well child 283565640 Z00.121 Premenstru al dysphoric disorder 837720 F32.81 Mild inter mittent asthma 934672469 J45.20 Allergy to food 91126093 1 Z91.864 [id number] Rachael Blair CMA Pediatric [facility] [address] [place] [address] 07/06/2020 16:32:55 07/10/2020 10:48:58 Active or passive immunization 558923601 Z23 [id number] [facility] [address],[facility] 1, [address] [address] 09/03/2020 17:44:07 09/05/2020 11:43:24 Administration of influenza vaccine 12407138 Z23 [id number] Daniella Ndiaye MD Pediatric s [address],[facility] 1, [address] [address] 09/24/2020 11:03:00 09/24/2020 12:06:10 Well child 507503421 Z00.129 Allergy to food 30070200 1 Z91.018 Rectal prolapse 58254238 K62.3 [id number] Daniella Ndiaye MD Pediatric s [address],[facility] 1, [address] [address] 10/15/2020 16:50:13 10/15/2020 17:13:01 Fever 477213476 R50.9 [id number] Karla Franco [facility] [address],[facility] [address], [address] [address] 09/05/2021 12:02:57 09/05/2021 13:29:05 Pharyngitis 805345342 J02.9 Administra tion of influenza vaccine 39311527 Z23 Suspected COVID-19 09659 4004 Z20.502 [id number] Daniella Ndiaye MD Pediatric s [address],[facility] [address], [address] [address] 10/22/2021 09:50:55 10/22/2021 11:19:28 Well child visit 812229974 Z00.121 Vitamin D deficiency 347 00954 E55.9 Screening for disorder 063417738 Z13.9 Symptoms o f depression 239587612 F32.89 [id number] Daniella Ndiaye MD Pediatric s [address],[facility] 1, [address] [address] 02/24/2022 16:52:55 02/26/2022 10:02:02 Easy bruising 667079739 R58 Allergic r eaction caused by egg protein 7333312060 4544939 T78.1XXD 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 4882 615767 8327 Z91.018 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 2173983612 2101 Z91.018 Anxiety 11737030 F41.9 [id number] Daniella Ndiaye MD [facility] [address],[facility] [address], [address] [place] [address] 09/30/2022 16:36:51 10/06/2022 12:58:51 Active or passive immunization 116244864 Z23 [id number] Daniella Ndiaye MD [facility] [address],[facility] [address], [address] [place] [address] 10/07/2022 11:01:27 10/07/2022 12:12:00 Adult health examination 083204280 Z00.00 [id number] Daniella Ndiaye MD [facility] [address],[facility] [address], [address] [place] [address] 01/20/2023 14:43:29 01/20/2023 15:23:15 Mixed anxiety and depressive disorder 118425979 F41.8 Allergy to food 42611881 1 Z91.018 Chronic post-traumatic stress disorder 036561707 F43.12 [id number] Daniella Ndiaye MD [facility] [address],[facility] [address], [address] [address] [place] [address] 04/30/2023 10:01:04 04/30/2023 10:44:04 Adult health examination 653901435 Z00.00 Mixed anxi ety and depressive disorder 422669861 F41.8 Chronic post-traumatic stress disorder 617008048 F43.12 Primary dysmenorrhea 657 18769 N94.4 Allergy to food [id number] 1 Z91.018 Nausea 002165486 R11.0 Mild persi stent asthma [id number] J45.30 Viral screening 50868834 4 Z11.59 Elevated blood-pressure reading without diagnosis of hypertension 969348647 R03.0 [id number] REBECCA MASON NP [facility] [id number] [address] [place] [address] 06/09/2023 19:08:56 06/09/2023 19:54:44 Dysuria 82967854 R30.0 Acute urin christiano tract infection 706995311 N39.0 Health Concerns Section Related Observation LastModified by Organization Detai ls LastModified Time None Recorded Concern Status LastModified by Organization Details LastModified Time None Recorded Advance Directives Directive None Recorded Payers Encounter Date Sequence Insurance Name Policy Number Policy Hager Covered Member ID Hager Member ID Guarantor Name 09/30/2022 1 [facility] [id number] Jerson Tsang [id number] Jerson Tsang 10/07/2022 1 [facility] [id number] Jerson Tsang [id number] Jerson Tsang 01/20/2023 1 [facility] [id number] Jerson Tsang [id number] Jerson Tsang 04/30/2023 1 [facility] [id number] Jerson Tsang [id number] Jerson Tsang 06/09/2023 1 [facility] [id number] Jerson Tsang [id number] Jerson Tsang Notes Date Note Type Note [...] maternity leave is not involved with parenting}}. home care physical therapist provided by {{parent(s) daycare center in-home daycare Mother's Day Out program appliance servicer/ extended family not required*}}. The child {{is is not*}} subject to a legal custody or visitation arrangement. Tobacco exposure is {{none* present within the household}}. She has had minimal flaring of asthma - albuterol use no more than once or twice. Daniella Ndiaye MD [address], [place], [address], [facility] 10/11/2022 10:52:00 01/20/2023 text/html Crystal presents for [...] she is going to participate in a [employer] course so she'll be relatively isolated in the dorm (most kids won't be there). Parents won't be with her. They've agreed to FaceTime daily which seems to provide some good reassurance. She has a local therapist in college but may switch to more EMDR-based therapy rather than DBT due to diagnosed PTSD. Daniella Ndiaye MD [address] [place] [address] [address], [place], [address], [facility] 01/25/2023 12:53:03 04/30/2023 text/html The child lives [...] maternity leave is not involved with parenting}}. home care physical therapist provided by {{parent(s) daycare center in-home daycare Mother's Day Out program appliance servicer/ extended family not required*}}. The child {{is is not*}} subject to a legal custody or visitation arrangement. Tobacco exposure is {{none* present within the household}}. She has had minimal flaring of asthma - albuterol use no more than once or twice in the last year, usually 2-3 days at a time. Daniella Ndiaye MD [address], [place], [address], [facility] 04/30/2023 15:02:35 06/09/2023 text/html Pediatric Dysuri a [...] in urinary habits: urinary frequency; some stomach [id number] nt was just on her period as well; urgency presentNotes:Sara yi presents to clinic with mom for pain when urinating. REBECCA MASON NP [address], [place], [address], [facility] 06/11/2023 09:02:04 OBGyn Episode No OBEpisode recorded.
[2024-09-17 16:15] LABS: Bacteria Urine Few; RBC Urine 0-2 (0-2); Squamous Epithelial Cell Urine Many (None-Few)
--- NOTE | 2024-09-17 16:22 | CRLHL7_ITS ---
For Patients: As a result of the Century Cures Act, medical imaging exams and procedure reports are released immediately into your electronic medical record. You may view this report before your referring provider. If you have questions, please contact your health care provider. INDICATION: Right lower quadrant pain extending into groin area. TECHNIQUE: Axial intravenously infused CT cuts were performed from above diaphragm to below the ischial tuberosities. 85 mL of Isovue 370 has been injected intravenously COMPARISON: 02/02/2023. Findings : The appendix is not inflamed. The colon and small bowel appear normal. The liver, spleen, pancreas, adrenals and kidneys appear normal. There is no free intraperitoneal air or fluid. There are no enlarged retroperitoneal or mesenteric lymph nodes. There is an IUD within the uterus. There is a 3.5 cm left ovarian cyst that is new since the previous CT. The urinary bladder appears normal. There is no iliac or inguinal lymphadenopathy. There are no nodules at the lung bases. IMPRESSION: 1. No cause for right lower quadrant pain identified. 2. There is a 3.5 cm left ovarian cyst that is new since prior CT. Please note that all CT scans at this facility use dose modulation, iterative reconstruction, and/or weight-based dosing when appropriate to reduce radiation dose to as low as reasonably achievable. Dictated by Reynaldo Irving MD @ 09/17/2024 5:18:30 PM (Electronically Signed)
[2024-09-17 16:46] LABS: Basophils Absolute Auto 0.02 K/uL (0.00-0.30); Basophils Percent Auto 0.2 % (0.0-3.0); Eosinophils Absolute Auto 0.33 K/uL (0.00-0.50); Eosinophils Percent Auto 3.2 % (0.0-7.0); Hematocrit 41.1 % (33.0-51.0); Hemoglobin* 13.9 gm/dL (12.0-16.0); Immature Granulocytes Abs Auto 0.02 K/uL (0.00-0.30); Immature Granulocytes Pct Auto 0.2 %; Lymphocytes Absolute Auto 2.41 K/uL (0.90-2.90); Lymphocytes Percent Auto 23.7 % (20-44); Mean Corpuscular HGB Conc 34 gm/dL (32-36); Mean Corpuscular Hemoglobin 30 pg (26-34); Mean Corpuscular Volume 90 fL (80-100); Monocytes Percent Auto 5.7 % (0.0-11.0); Neutrophils Absolute Auto 6.81 K/uL (1.7-7.0); Platelet Count* 314 K/uL (140-440); RDW Coefficient of Variation % 11.9 % (11.5-15.5); Red Blood Count 4.58 m/uL (4.00-5.20); Slide Review Reflex No; White Blood Count* 10.17 K/uL (4.50-11.00)
[2024-09-17 17:02] LABS: Chloride* 101 mmol/L (96-114); Potassium* 3.5 mmol/L (3.6-5.1); Sodium* 136 mmol/L (135-149)
[2024-09-17 17:05] LABS: Anion Gap 10 mEq/L (7-15); Blood Urea Nitrogen* 8 mg/dL (5-24); Calcium* 9.1 mg/dL (8.4-10.6); Carbon Dioxide* 25 mmol/L (20-32); Creatinine* 0.5 mg/dL (0.5-1.5); Est. Creatinine Clearance* 154.98; Estimated Glomerular Filt Rate 138 ml/min; Glucose* 88 mg/dL (60-115)
[2024-09-17 17:40] VITALS: BP 117/88; PULSE 86; RESP 14; O2SAT 100
[2024-09-17 17:44] VITALS: BP 138/89; PULSE 110; RESP 14; TEMP 37
== END 2024-09-17 17:40 | disposition home or self-care (01) ==
PROVIDERS: Emergency Provider Emergency Medicine Emergency Medical Services
DX: R10.9 Unspecified abdominal pain (principal)
CPT/HCPCS: 36415; 74177; 80048; 81001; 85025; 87086; 99284; 99285; Q9967

== ENCOUNTER 2025-04-10 15:30 | Outpatient (RCR) | payer OTHER, SELFPAY | END 2025-07-05 15:18 | disposition home or self-care (01) | PROVIDERS: Visit Provider Student in an Organized Health Care Education/Training Program | DX: M62.89 Other specified disorders of muscle (principal); M25.852 Other specified joint disorders, left hip; M25.851 Other specified joint disorders, right hip; N39.41 Urge incontinence; R15.1 Fecal smearing; Z51.89 Encounter for other specified aftercare | CPT/HCPCS: 97110; 97112; 97140; 97162; 97535 ==